=== PATIENT | female | born 1940 | race Caucasian/White ===

== ENCOUNTER 2023-10-19 17:07 | Inpatient (IN) | payer MEDICARE, SELFPAY ==
[2023-10-19] VITALS (9 sets, daily range): BP systolic 102–162; BP diastolic 61–81; BMI 23.2; BMI 21.7
--- NOTE | 2023-10-19 13:30 | ED.GENMED ---
History of Present Illness
General
Chief Complaint: Breathing Problem
Source: patient
Exam Limitations: none
Time Seen by Provider: 10/19/23 13:24
Nursing documentation reviewed up to this point in time: agreed with
Travel History
Have you had any contact with someone who has COVID-19?: No
Do you have any symptoms of coronavirus? Fever > 100 degrees, chills, cough, shortness of breath, sore throat, loss of taste or smell, muscle aches, or headache?: No
History of Present Illness
History of Present Illness:
83 yr . old female with HX of COPD presents to the ER for evaluation. Patient started with cough last week 6 days ago and since then has had increasing shortness of breath. She does use her inhaler however this does not help with her symptoms.
She usually wears oxygen at night but has had to wear it in the morning. She has not had any fevers. She is followed by Dr. Perdomo. She denies any chest pain shortness of breath.
Past History
Past History
ED Past Medical History: Valvular disease (), Other (Aortic stenosis, COPD, hypertension) and Other (cardiomyopathy, )
ED Past Surgical History: Cardiac (pacer)
Social History
Tobacco: Former smoker
Alcohol: None
Personal: Single
Living: alone
Family History
Family History: Negative Diabetes, Early CAD or CAD
Phy Exam
General Physical Exam
General Presentation: no apparent distress
General age: appears stated age
General Skin: warm and dry
General Habitus: elderly
General Mental: alert
General Hydration: appears well hydrated
Cardiovascular Exam
Cardiovascular Exam: regular rate/rhythm, no murmur and normal peripheral pulses
Pulmonary Exam
Pulmonary Exam: other (Decreased throughout, nonproductive cough mild wheezing)
Neurological Exam
Neurological Exam: alert and oriented x3
Musculoskeletal Exam
Musculoskeletal Exam: full ROM
Skin Exam
Skin Exam: normal color and warm/dry
Psychiatric Exam
Psychiatric Exam: normal mood/affect
Scores
Heart Failure Risk
Heart Failure Risk Score: Not Applicable
Course
Orders/Labs/Results
Orders:
Orders
10/19/23 13:28
IV Insert/Care/Rem.- Treatment PRN
Albuterol Nebs [Ventolin Nebules] 2.5 mg INH R NOW STA
Dexamethasone Sod Phosphate [Decadron] 10 mg IV NOW STA
10/19/23 13:29
Electrocardiogram (*1) Stat
Reason for Study: Other
Other Reason for Exam: pneumonia
EKG- Treatment ONCE
CR Chest - 2 Views Urgent
Comment:
Reason For Exam: sob/cough
Peak Flow Rate [RESP] Urgent
Quantity: 1
Pre-Bronchodilator: Yes
Post Bronchodilator: Yes
Special Instructions: Pre and Post Peak Flow before and after Bronchodilator
10/19/23 13:55
Complete Blood Count/With Diff Urgent
Comprehensive Metabolic Panel Urgent
Lactic Acid Q4H
Comment: CANCEL 2nd LACTIC ACID IF 1st LACTIC ACID IS LESS THAN 2
Blood Culture Urgent
MARIBEL Source: Blood/Venous
Specimen Description:
10/19/23 14:15
Blood Culture Urgent
MARIBEL Source: Blood/Venous
Specimen Description:
10/19/23 15:26
COVID-19 Antigen Urgent
Source: Nasal Swab
Influenza A+B Rapid Molecular Urgent
MARIBEL Source: Nasal Swab
Specimen Description:
10/19/23 16:18
Ipratropium/Albuterol Sulfate [Duoneb] 3 ml INH R NOW ONE
10/19/23 17:30
Lactic Acid Q4H
Comment: CANCEL 2nd LACTIC ACID IF 1st LACTIC ACID IS LESS THAN 2
Abnormal Lab Results
10/19/23
13:55
WBC 3.4 L 10^3/uL
(4.8-10.8)
Absolute Lymphs (auto) 0.6 L 10^3/uL
(1.2-3.4)
Lymphocytes % 17.8 L %
(20.5-51.1)
Monocytes % 16.0 H %
(1.7-9.3)
Sodium 130 L mmol/L
(135-145)
Glucose 126 H mg/dl
(70-99)
AST 54 H U/L
(14-36)
ALT 43 H U/L
(0-35)
Total Protein 5.9 L g/dl
(6.3-8.2)
10/19/23 13:55
10/19/23 13:55
Vital Signs
Initial and Last Documented VS:
Initial Vital Signs
Temp Pulse Resp BP Pulse Ox
98.1 F 101 20 124/72 87
10/19/23 13:10 10/19/23 13:10 10/19/23 13:10 10/19/23 13:10 10/19/23 13:10
Last Documented Vital Signs
Temp Pulse Resp BP Pulse Ox
98.1 F 84 18 134/65 92
10/19/23 13:10 10/19/23 15:30 10/19/23 15:30 10/19/23 15:29 10/19/23 15:29
MDM/Problems Addressed
Differential Diagnosis Includes:
Not limited to exacerbation of COPD, pneumonia, hypoxia, COVID, influenza, viral
MDM/Problems Addressed:
Patient is an 83-year-old female presents to the ER. Patient has a history of COPD normally wears oxygen at night however the past 1 week has had increasing shortness of breath wheezing cough. She has increased her oxygen to wearing it during the
day as well. She denies any fevers. She is afebrile negative COVID-negative flu here. No acute findings on chest x-ray. Patient has audible cough mild wheezing decreased breath sounds throughout given nebs steroids here mildly hypoxic. Will
admit for COPD exacerbation.
Chronic conditions affecting care:
copd on chronic O2 at night
*Radiology
Radiology exam reviewed: radiology read reviewed
*Pulse Oximetry
Patient hypoxic: no
*EKG
Heart Rate: 81
Rate: normal
Rhythm: ventricular paced
Ischemia: no ischemia
*Critical Care Note
Total Time (30-74mins, 75-104mins- exclusive of procedures): Not Applicable
ED Attending Note
-
Portions of this chart may have been created with voice recognition software.� Occasional wrong word or��sound alike� substitutions may have occurred due to the inherent limitations of voice recognition software.
Discharge Plan
Departure
Patient Disposition: Admit
Date of Disposition: 10/19/23
Time of Disposition: 16:27
Admit to: Med/Surg
Admit to doctor: hospitalist
Presentation/result/management discussed w/ accepting MD/DO: Hospitalist
Patient with high blood pressure during this ER visit?: Yes
Condition: Fair
Covid-19: Negative COVID-19
Discharge Problem:
copd exacerbation
Prescriptions:
No Action
ascorbic acid (vitamin C) [Vitamin C] 500 MG tablet
500 mg PO DAILY
Prolia 60 MG/ML syringe
60 mg SC [id number]
fluticasone propion-salmeterol 250-50 mcg/dose Blister With Device
1 inh INHALATION R BID
atorvastatin 80 mg Tablet
80 mg PO QPM
cefpodoxime 200 mg Tablet
200 mg PO BID
Patient Comments:
10/19/2023, pt. filled this med. on 10/13/2023 and is instructed to take one tablet BID for 7 days.
lisinopril 20 mg Tablet
20 mg PO DAILY
thiamine HCl (vitamin B1) [Vitamin B-1] 100 mg Tablet
100 mg PO DAILY
ropinirole 0.25 mg Tablet
0.25 mg PO BID
ipratropium bromide 42 mcg (0.06 %) [place],Non-Aerosol
1 spray INTRANASAL BIDPRN PRN (Reason: rhinitis)
fluticasone propionate 50 mcg/actuation [place],Suspension
1 spray INTRANASAL DAILY
cholecalciferol (vitamin D3) 25 mcg (1,000 unit) Tablet
25 mcg PO DAILY
omega 0-tdx-aox-fish oil [Fish Oil] 1,000 mg (120 mg-180 mg) Capsule
1 cap PO DAILY
Incruse Ellipta 62.5 mcg/actuation Blister With Device
1 inh INHALATION R DAILY
calcium citrate
650 mg PO DAILY
Referrals:
UNKNOWN - PT DOES,NOT KNOW [Family Provider] -
Interventions
Interventions:
*Risk Screen - Suicide Last Done: 10/19/23 13:10
*General Assessment Last Done: 10/19/23 13:10
*Neglect/Abuse Screening Last Done: 10/19/23 13:10
ED- Fall Risk Assessment Last Done: 10/19/23 13:44
*ED COVID-19 Vaccine History Last Done: 10/19/23 13:44
ED- Cardiac Assessment Last Done: 10/19/23 14:02
ED- Pulmonary Assessment Last Done: 10/19/23 15:46
--- NOTE | 2023-10-19 13:35 | EDRN ---
Reji CERVANTES in to see pt.
[2023-10-19 14:05] LABS: % Basophils 0.6 % (0-2); % Eosinophils 0.9 % (0-6); % Immature Granulocytes 0.3 % (0-0.5); % Lymphocytes 17.8 % (20.5-51.1); % Neutrophils 64.4 % (42.2-75.2); Absolute Lymphocytes 0.6 10^3/uL (1.2-3.4); Absolute Monocytes 0.6 10^3/uL (0.1-0.6); Absolute Neutrophils 2.2 10^3/uL (1.4-6.5); Hematocrit 40.2 % (37.0-47.0); Hemoglobin 14.1 g/dL (12.0-16.0); Mean Corp Hgb Conc. 35.1 g/dL (33.0-37.0); Mean Corpuscular Hgb 28.5 pg (27.0-31.0); Mean Corpuscular Volume 81.4 fL (81.0-99.0); Mean Platelet Volume 10.1 fL (7.4-10.4); Nucleated Red Blood Cells % 0 %; Platelet Count 146 10^3/uL (130-400); Red Blood Cell Count 4.94 10^6/uL (4.20-5.40); Red Cell Dist. Width 12.9 % (11.5-14.5); White Blood Cell Count 3.4 10^3/uL (4.8-10.8)
[2023-10-19] MEDS: DECADRON 10 MG IV (14:19)
[2023-10-19] MEDS: VENTOLIN NEBULES 2.5 MG INH (14:19)
[2023-10-19 14:29] LABS: ALT (SGPT) 43 U/L (0-35); AST (SGOT) 54 U/L (14-36); Albumin 3.5 g/dl (3.5-5.0); Alkaline Phosphatase 56 U/L (38-126); Blood Urea Nitrogen 15 mg/dl (7-17); Calcium 9.6 mg/dl (8.4-10.2); Carbon Dioxide 27 mmol/L (22-30); Chloride 98 mmol/L (98-107); Estimated Creatinine Clearance 45 ml/min; Glucose 126 mg/dl (70-99); Potassium 3.8 mmol/L (3.5-5.1); Sodium 130 mmol/L (135-145); Total Bilirubin 0.9 mg/dl (0.2-1.3); Total Protein 5.9 g/dl (6.3-8.2); eGFR > 60.00
[2023-10-19 14:33] LABS: Lactic Acid 0.9 mmol/L (0.7-2.0)
[2023-10-19 15:54] LABS: COVID-19 Antigen Negative (Negative)
--- NOTE | 2023-10-19 16:27 | HPS.HSE ---
Addendum entered and electronically signed by Rob Kaur MD 10/19/23 17:33:
I saw and examined the patient.
The BUFFET MANAGER or PA's note was reviewed and I agree with the note.
Comment: 83 yr . old female with� HX of COPD, ,HTN, HLD presents with persistent cough since last wednesday. Had seen friends at lunch, and symptoms began that night. Patient uses 2l at bedtime, and she subsequently noticed her oxygen level in high
80's which prompted her to use oxygen during the day time as well.�Otherwise denies URI symptoms, and mild sputum production is clear. Was given abx last week for possible infection with no relief. Had diarrhea yesterday and vomitted twice, although
no episodes now. RR 25, 92% on 2l. NA 130. Appears euvolemic. Chest x ray with no active disease. 96 on 2l . Mld wheezing b/l. Plan - duonebs, solumedrol. LR bolus. Monitor Na. Incentive [place]. monitor GI symptoms.
Original Note:
Family Physician
-
Family Physician: NOT KNOW UNKNOWN - PT DOES
Chief Complaint
-
sob
cough
History of Present Illness
3 yr . old female with� HX of COPD, ,HTn, HLD presented to us with cough associated with sob since last Wednesday. stated sob worse with exertion. cough was non productive. patient uses 2l at bedtime. she noticed her oxygen level in high 80's which
prompted her to use oxygen during the day time as well. uses nebs with no relief in her symptoms. denied fever, chills, chest pain. denied MABRY,dizzy or syncopal episode. denied abdominal pain. stated diarrhea since yesterday and vomited twice.
denied dysuria or hematuria. patient was evaluated by PCP last week and placed her on cefpodoxime.
chest x ray with no active disease. 96 on 2l . received dexamethasone, nebs in ER. admitting for further management.
Medical History
Past Medical History
Past Medical History: Reports Other
Additional Past Medical History:
COPD
HTN
HLD
Past Surgical History: Reports None
Social History
Tobacco: Former Smoker
Alcohol: None
Drug: None
Family History
Family History: Not pertinent
Allergies / Home Medications
Allergies reflects when Allergies were last updated in [facility].
Home Medications with original date entered in [facility]
Allergy/Medication List:
Allergies
Allergy/AdvReac Type Severity Reaction Status Date / Time
No Known Allergies Allergy Verified 10/19/23 13:16
Home Medications
ascorbic acid (vitamin C) 500 mg tablet (Vitamin C) 500 mg PO DAILY Supplement 06/29/17
denosumab 60 mg/mL subcutaneous syringe (Prolia) 60 mg SC [id number] bone density 05/16/21
atorvastatin 80 mg tablet 80 mg PO QPM 10/19/23
calcium citrate 650 mg PO DAILY 10/19/23
cefpodoxime 200 mg tablet 200 mg PO BID 10/19/23
cholecalciferol (vitamin D3) 25 mcg (1,000 unit) tablet 25 mcg PO DAILY 10/19/23
fluticasone 250 mcg-salmeterol 50 mcg/dose blistr powdr for inhalation 1 inh inhalation R BID 10/19/23
fluticasone propionate 50 mcg/actuation nasal spray,suspension 1 spray intranasal DAILY 10/19/23
ipratropium bromide 42 mcg (0.06 %) nasal spray 1 spray intranasal BIDPRN PRN rhinitis 10/19/23
lisinopril 20 mg tablet 20 mg PO DAILY 10/19/23
omega 5-owv-nat-fish oil 1,000 mg (120 mg-180 mg) capsule (Fish Oil) 1 cap PO DAILY 10/19/23
ropinirole 0.25 mg tablet 0.25 mg PO BID 10/19/23
thiamine HCl (vitamin B1) 100 mg tablet (Vitamin B-1) 100 mg PO DAILY 10/19/23
umeclidinium 62.5 mcg/actuation blister powder for inhalation (Incruse Ellipta) 1 inh inhalation R DAILY 10/19/23
Review of Systems
-
Constitutional: Reports No Symptoms
EENT: Reports No Symptoms
Respiratory: Reports No Symptoms, Cough and Trouble Breathing
Cardiac: Reports No Symptoms
Abdomen/GI: Reports No Symptoms
: Reports No Symptoms
Musculoskeletal: Reports No Symptoms
Skin: Reports No Symptoms
Neurological: Reports No Symptoms
Endocrine: Reports No Symptoms
Hematologic/Lymphatic: Reports No Symptoms
Psych: Reports No Symptoms
Physical Exam
Vital Signs
Vital Signs
Temp Pulse Resp BP Pulse Ox
98.1 F 84 18 134/65 92
10/19/23 13:10 10/19/23 15:30 10/19/23 15:30 10/19/23 15:29 10/19/23 15:29
Physical Exam
General: Well Developed, Well Nourished and No Apparent Distress
HEENT: NormoCephalic, Moist mucous membranes and Atraumatic
Respiratory: Clear and Wheezes
Cardiac: S1/S2 and Regular Rhythm; No Murmur or Rub
GI: Soft, Non Tender, Non Distended and Normal Bowel Sounds; No Organomegaly
Rectal: Deferred by Provider
Musculoskeletal: No Clubbing, No Cyanosis and No Edema
Skin: No Rash
Neuro: AO x 3 and Nonfocal/grossly intact
Psych: Calm
Laboratory Results
-
10/19/23 13:55
10/19/23 13:55
Laboratory Results
Lactic Acid 0.9 mmol/L (0.7-2.0) 10/19/23 13:55
Total Bilirubin 0.9 mg/dl (0.2-1.3) 10/19/23 13:55
AST 54 U/L (14-36) H 10/19/23 13:55
ALT 43 U/L (0-35) H 10/19/23 13:55
Alkaline Phosphatase 56 U/L (38-126) 10/19/23 13:55
Data Reviewed
-
Diagnostic Radiology: Report Reviewed by me
Lab Data: Labs Reviewed by me
Impression/Plan
-
#acute hypoxic respiratory failure likely from COPD exacerbation
-Patient normally wears 2 L at nighttime
-At present requiring 2L all the time
-Albuterol continued
-solu Medrol 40mg iv every 8 hours
-Wean oxygen as tolerated
-Continue supplemental oxygen to keep sat greater than 92
-covid, flu negative
-chest x ray with No convincing acute cardiopulmonary process.
-blood culture sent from ER
# Hyponatremia likely dehydration
-Sodium 130
-LR 80cc/hr x1 bag
# Elevated LFTs likely dehydration
-AST 54, ALT 43
-fluids
#loose stool/vomiting likely from abx
-ctm
-if continues to have lose, consider stool studies.
Hypertension
�- Stable.� Continue outpatient lisinopril.
#restless leg syndrome
-Requip continued
#HLD
-statin
DVT Prophylaxis:�lovenox
Code Status:� Full
--- NOTE | 2023-10-19 17:00 | EDRN ---
Dr. Kaur in to see pt.
[2023-10-19] MEDS: DUONEB 3 ML INH ×2 (17:06→19:53)
[2023-10-19] MEDS: LR 1000 IV (17:59)
[2023-10-19] MEDS: LOVENOX 40 MG SC (18:08)
[2023-10-19] MEDS: LIPITOR 80 MG PO (18:08)
[2023-10-19] MEDS: ADVAIR HFA 115/21 MCG INHALER 2 PUFF INH (19:53)
[2023-10-19] MEDS: MUCINEX 600 MG PO (21:29)
[2023-10-19] MEDS: REQUIP 0.25 MG PO (21:29)
[2023-10-19] MEDS: SOLU-MEDROL PF 40 MG IV (21:30)
[2023-10-19] MEDS: FLUSH (NSS) 1 FLUSH IV (21:33)
--- NOTE | 2023-10-19 23:29 | PTCARENOTE ---
Pt received from [place] [id number] able to make her needs known. Pt on 2 liters of oxygen. Pt ambulates with 1 person assist to bathroom. Pt oriented to room & call sharp in reach.
[2023-10-20] MEDS: SOLU-MEDROL PF 40 MG IV ×3 (05:35→21:01)
[2023-10-20] MEDS: DUONEB 3 ML INH ×4 (07:15→19:36)
[2023-10-20] MEDS: SPIRIVA RESPIMAT 2.5 MCG 2 PUFF INH (07:15)
[2023-10-20] MEDS: ADVAIR HFA 115/21 MCG INHALER 2 PUFF INH ×2 (07:16→19:36)
[2023-10-20 07:25] VITALS: BP 144/72
[2023-10-20 08:24] LABS: Hemoglobin 14.3 g/dL (12.0-16.0); Mean Corpuscular Hgb 28.3 pg (27.0-31.0); Mean Corpuscular Volume 83.2 fL (81.0-99.0); Mean Platelet Volume 10.6 fL (7.4-10.4); Platelet Count 152 10^3/uL (130-400); Red Blood Cell Count 5.05 10^6/uL (4.20-5.40); Red Cell Dist. Width 12.6 % (11.5-14.5); White Blood Cell Count 3.4 10^3/uL (4.8-10.8)
[2023-10-20 08:41] LABS: Blood Urea Nitrogen 14 mg/dl (7-17); Calcium 9.9 mg/dl (8.4-10.2); Carbon Dioxide 28 mmol/L (22-30); Chloride 96 mmol/L (98-107); Estimated Creatinine Clearance 48 ml/min; Glucose 136 mg/dl (70-99); Potassium 4.7 mmol/L (3.5-5.1); Sodium 131 mmol/L (135-145); eGFR > 60.00
[2023-10-20] MEDS: ZESTRIL 20 MG PO (08:59)
[2023-10-20] MEDS: MUCINEX 600 MG PO ×2 (08:59→21:01)
[2023-10-20] MEDS: VITAMIN D3 (cholecalciferol) 25 MCG PO (08:59)
[2023-10-20] MEDS: REQUIP 0.25 MG PO ×2 (08:59→21:01)
--- NOTE | 2023-10-20 10:35 | CM ---
Patient seen, initial assessment completed. Patient reports she lives independently in an apartment, first floor. Patient reports she has a cane in the home but does not use it, has O2 through [employer] which she uses nightly. Patient reports history
of VN over 10 years ago, denies SNF. Patient confirms PCP Dr. Oreilly with [facility], pharmacy used [facility]. Per Hospitalist, patient not ready for discharge at this time. CM will continue to follow for discharge planning needs.
Plan; home no needs vs possible VN needs.
--- NOTE | 2023-10-20 14:26 | W.PN.HOSP.TC ---
Today's Communication/Plan
-
duonebs
iv steroids
IC/Acapella
Assessment / Plan
Assessment / Plan
Physical Exam
General: Well Developed, Well Nourished and No Apparent Distress
HEENT: NormoCephalic, Moist mucous membranes and Atraumatic
Respiratory: Clear and mild wheezing/rhonchi at the bases
Cardiac: S1/S2 and Regular Rhythm; No Murmur or Rub
GI: Soft, Non Tender, Non Distended and Normal Bowel Sounds; No Organomegaly
Rectal: Deferred by Provider
Musculoskeletal: No Clubbing, No Cyanosis and No Edema
Skin: No Rash
Neuro: AO x 3 and Nonfocal/grossly intact
Psych: Calm
#acute hypoxic respiratory failure likely from COPD exacerbation exacerbated by URI
-Patient normally wears 2 L at nighttime
-At present requiring 2L all the time
-Duonebs standing
-solu Medrol 40mg iv every 8 hours
-Wean oxygen as tolerated
-Continue supplemental oxygen to keep sat greater than 92
-Incentive [place], Acapella
-covid, flu negative
# Hyponatremia l
-likely SIADH
-FWR
# Elevated LFTs
-most likely 2/2 to abx use - now off
-AST 54, ALT 43
-ctm
#loose stool/vomiting likely from abx
-ctm
-resolved
Hypertension
�- Stable.� Continue outpatient lisinopril.
#restless leg syndrome
-Requip continued
#HLD
-statin
DVT Prophylaxis:�lovenox
Code Status:� Full
Anticipated Discharge: 24 - 48 hours
Subjective/Interval History
-
Date of Service: October 20, 2023
improvement in respiratory symptoms
Objective Data
-
Labs:
Laboratory Results
03/13/24
07:39
WBC 3.4 L
Hgb 14.3
Hct 42.0
Plt Count 152
Sodium 131 L
Potassium 4.7
Chloride 96 L
Carbon Dioxide 28
BUN 14
Creatinine 0.5 L
Glucose 136 H
Calcium 9.9
Vital Signs:
Vital Signs
Temp Pulse Resp BP Pulse Ox
98.0 F 80 16 144/72 91
10/20/23 07:25 10/20/23 11:06 10/20/23 11:06 10/20/23 07:25 10/20/23 08:30
I&O
10/19/23 10/20/23 10/21/23
06:59 06:59 06:59
Intake Total 1240 / 1240
Balance 1240 / 1240
Review of Systems
-
History Source: Patient
All other systems: Not reviewed unless documented
Data Reviewed
-
Diagnostic Radiology: Image personally visualized and interpreted and Report Reviewed by me
Labs: Labs Reviewed by me
[2023-10-20 15:36] VITALS: BP 104/58
[2023-10-20] MEDS: LIPITOR 80 MG PO (17:15)
[2023-10-20] MEDS: LOVENOX 40 MG SC (17:15)
[2023-10-20 23:19] VITALS: BP 108/59
[2023-10-21] MEDS: SOLU-MEDROL PF 40 MG IV (05:37)
[2023-10-21 07:00] VITALS: BP 140/69
[2023-10-21] MEDS: DUONEB 3 ML INH ×2 (07:40→11:27)
[2023-10-21] MEDS: ADVAIR HFA 115/21 MCG INHALER 2 PUFF INH (07:40)
[2023-10-21] MEDS: SPIRIVA RESPIMAT 2.5 MCG 2 PUFF INH (07:41)
[2023-10-21 07:48] LABS: Hematocrit 43.8 % (37.0-47.0); Hemoglobin 14.8 g/dL (12.0-16.0); Mean Corp Hgb Conc. 33.8 g/dL (33.0-37.0); Mean Corpuscular Hgb 28.4 pg (27.0-31.0); Mean Corpuscular Volume 83.9 fL (81.0-99.0); Mean Platelet Volume 10.9 fL (7.4-10.4); Platelet Count 206 10^3/uL (130-400); Red Blood Cell Count 5.22 10^6/uL (4.20-5.40)
[2023-10-21 08:19] LABS: Blood Urea Nitrogen 13 mg/dl (7-17); Calcium 10.2 mg/dl (8.4-10.2); Carbon Dioxide 30 mmol/L (22-30); Chloride 100 mmol/L (98-107); Estimated Creatinine Clearance 48 ml/min; Glucose 126 mg/dl (70-99); Magnesium 1.8 mg/dl (1.6-2.3); Phosphorus 4.1 mg/dl (2.5-4.5); Potassium 5.1 mmol/L (3.5-5.1); Sodium 134 mmol/L (135-145); eGFR > 60.00
[2023-10-21] MEDS: REQUIP 0.25 MG PO (08:52)
[2023-10-21] MEDS: ZESTRIL 20 MG PO (08:52)
[2023-10-21] MEDS: VITAMIN D3 (cholecalciferol) 25 MCG PO (08:52)
[2023-10-21] MEDS: MUCINEX 600 MG PO (08:52)
--- NOTE | 2023-10-21 12:42 | W.PN.HOSP.TC ---
Addendum entered and electronically signed by Rob Kaur MD 10/21/23 17:37:
[id number]
Original Note:
Today's Communication/Plan
-
transition to pred 40mg and drop by 10mg every 3 days
f/u cbc , bmp outpatient
f/u pulm, pcp outpatient
Assessment / Plan
Assessment / Plan
Physical Exam
General: Well Developed, Well Nourished and No Apparent Distress
HEENT: NormoCephalic, Moist mucous membranes and Atraumatic
Respiratory: Clear and mild wheezing/rhonchi at the bases
Cardiac: S1/S2 and Regular Rhythm; No Murmur or Rub
GI: Soft, Non Tender, Non Distended and Normal Bowel Sounds; No Organomegaly
Rectal: Deferred by Provider
Musculoskeletal: No Clubbing, No Cyanosis and No Edema
Skin: No Rash
Neuro: AO x 3 and Nonfocal/grossly intact
Psych: Calm
#acute hypoxic respiratory failure likely from COPD exacerbation exacerbated by URI
-Patient normally wears 2 L at nighttime
-resolved hypoxia during the day; wheezing resolved
-solu Medrol 40mg iv every 8 hours - transition to pred 40mg and drop by 10mg every 3 days
-Wean oxygen as tolerated
-Continue supplemental oxygen to keep sat greater than 92
-Incentive [place], Acapella
-covid, flu negative
-F/u Pulm outpatient
# Hyponatremia, resolving
-likely SIADH
-FWR
-f/u bmp outaptient
# Elevated LFTs
-most likely 2/2 to abx use - now off
-AST 54, ALT 43
-ctm - f/u outpatient
#Leukocytosis
�Most likely secondary to steroids
Follow CBC outpatient
� Afebrile, low likelihood of acute bacterial infection
#loose stool/vomiting likely from abx
-ctm
-resolved
Hypertension
�- Stable.� Continue outpatient lisinopril.
#restless leg syndrome
-Requip continued
#HLD
-statin
DVT Prophylaxis:�lovenox
Code Status:� Full
More than 30 minutes spent in discharge including
Final examination of the patient
Summarizing hospital stay
Instructions for continuing care to all relevant caregivers
Preparation of discharge records, prescriptions, and referral forms
Total time spent (35 in minutes):
Anticipated Discharge: Today
Subjective/Interval History
-
Date of Service: October 21, 2023
wheezing resolved
Objective Data
-
Labs:
Laboratory Results
10/21/23
07:12
WBC 16.0 H
Hgb 14.8
Hct 43.8
Plt Count 206 D
Sodium 134 L
Potassium 5.1
Chloride 100
Carbon Dioxide 30
BUN 13
Creatinine 0.6
Glucose 126 H
Calcium 10.2
Vital Signs:
Vital Signs
Temp Pulse Resp BP Pulse Ox
98 F 84 16 140/69 90
10/21/23 07:00 10/21/23 11:31 10/21/23 11:31 10/21/23 07:00 10/21/23 11:31
I&O
10/20/23 10/21/23 10/22/23
06:59 06:59 06:59
Intake Total 1240 / 1240 1440 / 1440
Balance 1240 / 1240 1440 / 1440
Review of Systems
-
History Source: Patient
All other systems: Not reviewed unless documented
Data Reviewed
-
Diagnostic Radiology: Image personally visualized and interpreted and Report Reviewed by me
Labs: Labs Reviewed by me
--- NOTE | 2023-10-21 12:50 | W.DS.TRANS ---
DC Summary - Application Security Specialist
-
Discharge Instructions:
Discharge Diagnosis/Procedures COPD exacerbation
Diet Restrict fluids to 64 oz,Low Fat,Low Cholesterol
Activity As tolerated
Blood Work CBC, BMP to evaluate PCP
Instructions:
Stand-Alone Forms:
Changes to Home Medications: Yes
Discharge Medications:
DC Medications w/original date entered in [facility]
ascorbic acid (vitamin C) 500 mg tablet (Vitamin C) 500 mg PO DAILY Supplement 06/29/17
denosumab 60 mg/mL subcutaneous syringe (Prolia) 60 mg SC [id number] bone density 05/16/21
atorvastatin 80 mg tablet 80 mg PO QPM High Cholesterol 10/19/23
calcium citrate 650 mg PO DAILY Supplement 10/19/23
cholecalciferol (vitamin D3) 25 mcg (1,000 unit) tablet 25 mcg PO DAILY Supplement 10/19/23
fluticasone 250 mcg-salmeterol 50 mcg/dose blistr powdr for inhalation 1 inh inhalation R BID Lung/Breathing Issues 10/19/23
fluticasone propionate 50 mcg/actuation nasal spray,suspension 1 spray intranasal DAILY Allergies 10/19/23
ipratropium bromide 42 mcg (0.06 %) nasal spray 1 spray intranasal BIDPRN PRN rhinitis 10/19/23
lisinopril 20 mg tablet 20 mg PO DAILY Blood Pressure 10/19/23
omega 0-nje-tay-fish oil 1,000 mg (120 mg-180 mg) capsule (Fish Oil) 1 cap PO DAILY Supplement 10/19/23
ropinirole 0.25 mg tablet 0.25 mg PO BID Neurological Condition 10/19/23
thiamine HCl (vitamin B1) 100 mg tablet (Vitamin B-1) 100 mg PO DAILY Supplement 10/19/23
umeclidinium 62.5 mcg/actuation blister powder for inhalation (Incruse Ellipta) 1 inh inhalation R DAILY Lung/Breathing Issues 10/19/23
prednisone 10 mg tablet See Rx Instructions .Route .COMPLEX #30 tabs 10/21/23
Home Medication Changes
prednisone 10 mg tablet See Rx Instructions .Route .COMPLEX #30 tabs 10/21/23
Pending Results: No
[2023-10-21 13:39] VITALS: BP 110/65
--- NOTE | 2023-10-21 14:23 | CM ---
Patient seen, reports no new concerns. IMM reviewed, signed, placed in patients chart. CM will continue to follow for discharge planning needs.
Plan; home no needs, son to provide transportation home.
--- NOTE | 2023-10-25 14:35 | PN.CDI ---
CDI
- -
CDI:
Physician Documentation Request
Admit Date: 10/19/23 17:07
Dear Doctor Natasha,
Patient admitted with COPD exacerbation.
10/20 PN, 'acute hypoxic respiratory failure likely from COPD exacerbation exacerbated by URI....Patient normally wears 2 L at nighttime....-resolved hypoxia during the day.'
Patient on O2 2L throughout hospitalization.
Based on the above information and the recognized standard for respiratory failure could you please verify this diagnoses is still accurate and reflective of the patient�s condition to ensure quality of the medical record.
Please clarify in the Progress Notes:
�Acute hypoxic respiratory failure is/was present and is a clinical diagnosis based on (please include this additional support in the medical record)
�After careful study, acute hypoxic respiratory failure has been ruled out, patient has hypoxia only.
�Other
Recognized standard criteria for respiratory failure includes:
(Source: [employer] Hospitalist May/Jun 2013)
ABGs (1 or more)
�PO2 <60 or RA SpO2 <91%
�PcO2 >50 and pH <7.35
�pO2 decrease or pcO2 increase by 10 mmHg from baseline if known Symptoms:
�Tachypnea, SOB, dyspnea
�Pallor or cyanosis
�Anxiety or restlessness
�Use of accessory muscles
�Retractions (grunting in newborns)
�Unable to speak in complete sentences
Supplemental O2 requirement of 40% (5LPM) or more Intubation is not required
Use of terms such as suspected, likely, concern for, or probable (associated with a specific diagnosis that is being evaluated, monitored, or treated as if it exists) are acceptable and can be coded in the inpatient setting, when documented at the
time of discharge.
Thank you,
Renetta PHAM,RN,CCDS
CDI Specialist
Available via [place] text
Please use your independent medical judgment in providing your response.
== END 2023-10-21 14:13 | disposition home or self-care (01) | DRG 190 ==
LOC: 4 EAST ACU 17:07
PROVIDERS: Nurse Practitioner; Registered Nurse; ADMITTING PHYSICIAN Internal Medicine; EMERGENCY PHYSICIAN Student in an Organized Health Care Education/Training Program; FAMILY PHYSICIAN Internal Medicine
DX: J44.1 Chronic obstructive pulmonary disease with (acute) exacerbation (principal); J96.01 Acute respiratory failure with hypoxia; I42.8 Other cardiomyopathies; E22.2 Syndrome of inappropriate secretion of antidiuretic hormone; J06.9 Acute upper respiratory infection, unspecified; I10 Essential (primary) hypertension; I35.0 Nonrheumatic aortic (valve) stenosis; E78.5 Hyperlipidemia, unspecified; E86.0 Dehydration; R79.89 Other specified abnormal findings of blood chemistry; T38.0X5A Adverse effect of glucocorticoids and synthetic analogues, initial encounter; D72.829 Elevated white blood cell count, unspecified; G25.81 Restless legs syndrome; Z11.52 Encounter for screening for COVID-19; Z79.51 Long term (current) use of inhaled steroids; Z87.891 Personal history of nicotine dependence; Z99.81 Dependence on supplemental oxygen
CPT/HCPCS: 71046; 80048; 80053; 83605; 83735; 84100; 85025; 85027; 87040; 87502; 87811; 93005; 94640; 96374; 99285

== ENCOUNTER → 2024-03-01 16:29 | Outpatient (REF) | payer MEDICARE, SELFPAY | LOC: RCS 16:29 | PROVIDERS: ATTENDING PHYSICIAN Internal Medicine Cardiovascular Disease; FAMILY PHYSICIAN Family Medicine | DX: R06.09 Other forms of dyspnea (principal); I25.10 Atherosclerotic heart disease of native coronary artery without angina pectoris; I10 Essential (primary) hypertension | CPT/HCPCS: 93306 ==

== ENCOUNTER → 2024-03-23 14:42 | Outpatient (REF) | payer MEDICARE, SELFPAY | LOC: WDC 14:42 | PROVIDERS: ATTENDING PHYSICIAN Internal Medicine | DX: Z12.31 Encounter for screening mammogram for malignant neoplasm of breast (principal) | CPT/HCPCS: 77063; 77067 ==

== ENCOUNTER → 2024-04-11 16:40 | Outpatient (REF) | payer MEDICARE, SELFPAY | LOC: RAD 16:40 | PROVIDERS: ATTENDING PHYSICIAN Internal Medicine | DX: R05.1 Acute cough (principal) | CPT/HCPCS: 71046 ==

== ENCOUNTER → 2024-05-08 08:34 | Outpatient (REF) | payer MEDICARE, SELFPAY | LOC: RAD 08:34 | PROVIDERS: ATTENDING PHYSICIAN Internal Medicine Critical Care Medicine; FAMILY PHYSICIAN Internal Medicine | DX: J18.9 Pneumonia, unspecified organism (principal) | CPT/HCPCS: 71046 ==

== ENCOUNTER → 2024-07-20 11:10 | Outpatient (REF) | payer MEDICARE, SELFPAY | LOC: RAD 11:10 | PROVIDERS: ATTENDING PHYSICIAN Internal Medicine Endocrinology, Diabetes & Metabolism; FAMILY PHYSICIAN Internal Medicine | DX: E04.2 Nontoxic multinodular goiter (principal) | CPT/HCPCS: 76536 ==

== ENCOUNTER → 2024-10-02 08:22 | Outpatient (REF) | payer MEDICARE, SELFPAY | LOC: RAD 08:22 | PROVIDERS: ATTENDING PHYSICIAN Internal Medicine Rheumatology; FAMILY PHYSICIAN Internal Medicine; REFERRING PHYSICIAN Student in an Organized Health Care Education/Training Program | DX: M81.0 Age-related osteoporosis without current pathological fracture (principal); M85.89 Other specified disorders of bone density and structure, multiple sites; Z13.820 Encounter for screening for osteoporosis | CPT/HCPCS: 77080; 77081 ==

== ENCOUNTER → 2024-11-09 12:34 | Outpatient (REF) | payer MEDICARE, SELFPAY | LOC: HWRAD 12:34 | PROVIDERS: ATTENDING PHYSICIAN Internal Medicine Critical Care Medicine; FAMILY PHYSICIAN Internal Medicine | DX: Z09 Encounter for follow-up examination after completed treatment for conditions other than malignant neoplasm (principal); R91.8 Other nonspecific abnormal finding of lung field | CPT/HCPCS: 71250 ==

== ENCOUNTER 2024-12-08 12:02 | Inpatient (IN) | payer MEDICARE, SELFPAY ==
[2024-12-08] VITALS (10 sets, daily range): BP systolic 117–158; BP diastolic 58–101; BMI 20.1
--- NOTE | 2024-12-08 08:25 | ED.GENMED ---
History of Present Illness
General
Chief Complaint: Cough
Source: patient, records and previous hospital records
Exam Limitations: none
Time Seen by Provider: 12/08/24 08:09
Nursing documentation reviewed up to this point in time: agreed with
History of Present Illness
History of Present Illness:
84-year-old female COPD uses oxygen as needed at night 2 L not on chronic steroids uses inhalers, few days of cough congestion productive sputum problems sleeping at night saw her PCP told it was allergies, here she is coughing, sats in the low 80s,
we will complete short sentences, patient does have some lower extremity edema, admitted a few months ago with similar COPD flare, has had nonobstructive coronary disease pacemaker aortic stenosis she is on a diuretic antihypertensives
Past History
Past History
ED Past Medical History: CHF, COPD, HTN, Valvular disease (), Other (Aortic stenosis, COPD, hypertension) and Other (cardiomyopathy, )
ED Past Surgical History: Cardiac (pacer)
Social History
Tobacco: Former smoker
Alcohol: None
Personal: Single
Living: alone
Employment: Retired
Family History
Family History: Negative Diabetes, Early CAD or CAD
Review of Systems
Review of Systems
All Other Systems: Not applicable
Constitutional: Denies fever
Respiratory: Reports cough and trouble breathing
ABD/GI: Reports no symptoms
: Reports no symptoms
Musculoskeletal: Reports no symptoms
Neurological: Reports no symptoms
Phy Exam
Physical Exam
Physical Exam:
Physical Exam
General: 84 female coughing hypoxic
Neck: No jaundice
Heart: Regular systolic ejection murmur
Lungs: Wheeze and rhonchi
Abdomen: Nontender
Neuro: alert and oriented. no focal neurological deficits
Skin: no rash
Psychiatric: well kept. interactive and cooperative
Extremities: 1+ edema
Course
Orders/Labs/Results
Orders:
Orders
12/08/24 08:01
EKG [Electrocardiogram (*1)] Urgent
Reason for Study: Chest Pain
EKG- Treatment ONCE
12/08/24 08:16
Cardiac Monitoring- Treatment ONCE
IV Insert/Care/Rem.- Treatment PRN
Dexamethasone Sod Phosphate [Decadron] 10 mg IV NOW STA
Ipratropium/Albuterol Sulfate [Duoneb] 3 ml INH R NOW STA
CR Chest - 2 Views Urgent
Comment:
Reason For Exam: cough
12/08/24 08:25
COVID-19 Antigen Urgent
Source: Nasal Swab
Complete Blood Count/With Diff Urgent
Comprehensive Metabolic Panel Urgent
NT-proBNP Urgent
Influenza A+B Rapid Molecular Urgent
MARIB[facility] Source: Nasal Swab
Specimen Description:
12/08/24 10:07
Sputum Culture [Respiratory Culture/Gram Stain] Routine
MARIBEL Source: Sputum
Specimen Description:
12/08/24 10:08
CefTRIAXone [Rocephin] 1,000 mg IV NOW STA
Doxycycline [Vibramycin] 100 mg PO NOW STA
Abnormal Lab Results
12/08/24
08:25
WBC 12.0 H 10^3/uL
(4.8-10.8)
RBC 5.52 H 10^6/uL
(4.20-5.40)
Abs Immat Gran (auto) 0.1 H 10^3/uL
(0-0.05)
Absolute Neuts (auto) 10.5 H 10^3/uL
(1.4-6.5)
Absolute Lymphs (auto) 0.7 L 10^3/uL
(1.2-3.4)
Absolute Monos (auto) 0.8 H 10^3/uL
(0.1-0.6)
Neutrophils % 87.4 H %
(42.2-75.2)
Lymphocytes % 5.4 L %
(20.5-51.1)
Chloride 97 L mmol/L
(98-107)
Glucose 116 H mg/dl
(70-99)
12/08/24 08:25
12/08/24 08:25
Vital Signs
Initial and Last Documented VS:
Initial Vital Signs
Temp Pulse Resp BP Pulse Ox
98.8 F 107 16 158/101 88
12/08/24 07:58 12/08/24 07:58 12/08/24 07:58 12/08/24 07:58 12/08/24 07:58
Last Documented Vital Signs
Temp Pulse Resp BP Pulse Ox
98.8 F 95 19 134/83 92
12/08/24 07:58 12/08/24 08:27 12/08/24 08:27 12/08/24 08:27 12/08/24 08:27
MDM/Problems Addressed
Differential Diagnosis Includes:
Bronchitis COPD exacerbation pneumonia heart failure doubt ACS
MDM/Problems Addressed:
Shortness of breath cough
Chronic conditions affecting care: HTN, Cardiomyopathy, Arrhythmia and COPD
Acute Exacerbation and/or Progression of Chronic Illness: HTN, Cardiomyopathy, Arrhythmia and COPD
*Radiology
Radiology exam reviewed: preliminary read by ED provider
*Pulse Oximetry
Patient hypoxic: yes
*EKG
Interpreted by ED Provider?: Yes
Interpretation: abnormal
Heart Rate: 78
Rate: normal
Rhythm: sinus
Ischemia: non-specific ST changes
*Logistics Analyst Interpretation
Rate: normal
Interpretation: normal
Heart Rate: 78
Rhythm: ventricular paced
*Critical Care Note
Total Time (30-74mins, 75-104mins- exclusive of procedures): Not Applicable
Data Reviewed
Review of Other/Old Records Reveals: Labs, Progress Notes and Discharge Summary
Source: patient and records
Further Testing Considered But Not Given:
CT of the chest
Update Note
Update Note:
Update labs noted EKG noted chest x-ray noted formal report pending
10 AM chest x-ray report noted patient still tachypneic coughing will check sputum culture start on antibiotics low threshold to admit
ED Attending Note
-
Portions of this chart may have been created with voice recognition software.� Occasional wrong word or��sound alike� substitutions may have occurred due to the inherent limitations of voice recognition software.
Discharge Plan
Departure
Patient Disposition: Admit
Date of Disposition: 12/08/24
Time of Disposition: 10:11
Admit to: Med/Surg
Presentation/result/management discussed w/ accepting MD/DO: Hospitalist
Patient with high blood pressure during this ER visit?: No
Condition: Fair
Covid-19: Not Applicable
Discharge Problem:
Acute respiratory failure with hypoxia, COPD (chronic obstructive pulmonary disease), Pneumonia
Prescriptions:
No Action
ascorbic acid (vitamin C) [Vitamin C] 500 MG tablet
500 mg PO DAILY
Prolia 60 MG/ML syringe
60 mg SC [id number]
fluticasone propion-salmeterol 250-50 mcg/dose Blister With Device
1 inh INHALATION R BID
atorvastatin 80 mg Tablet
80 mg PO QPM
lisinopril 20 mg Tablet
20 mg PO DAILY
thiamine HCl (vitamin B1) [Vitamin B-1] 100 mg Tablet
100 mg PO DAILY
ropinirole 0.25 mg Tablet
0.25 mg PO BID
ipratropium bromide 42 mcg (0.06 %) [place],Non-Aerosol
1 spray INTRANASAL BIDPRN PRN (Reason: rhinitis)
fluticasone propionate 50 mcg/actuation [place],Suspension
1 spray INTRANASAL DAILY
cholecalciferol (vitamin D3) 25 mcg (1,000 unit) Tablet
25 mcg PO DAILY
omega 6-mhz-vel-fish oil [Fish Oil] 1,000 mg (120 mg-180 mg) Capsule
1 cap PO DAILY
Incruse Ellipta 62.5 mcg/actuation Blister With Device
1 inh INHALATION R DAILY
calcium citrate
650 mg PO DAILY
prednisone 10 mg Tablet
See Rx Instructions .ROUTE .COMPLEX Qty: 30 0RF
Rx Instructions:
Take By Mouth:
40 mg daily x3 days, 30 mg daily x3 days,
20 mg daily x3 days, 10 mg daily x3 days.
Referrals:
Donald Oreilly MD [Family Provider] -
Interventions
Interventions:
*Risk Screen - Suicide Last Done: 12/08/24 07:58
*Neglect/Abuse Screening Last Done: 12/08/24 07:58
ED- Pulmonary Assessment Last Done: 12/08/24 08:36
Discharge Date and Time
Print Language: TAJIK
[2024-12-08] MEDS: DUONEB 3 ML INH (08:28)
[2024-12-08] MEDS: DECADRON 10 MG IV (08:32)
[2024-12-08 08:46] LABS: % Basophils 0.3 % (0-2); % Eosinophils 0.1 % (0-6); % Immature Granulocytes 0.4 % (0-0.5); % Lymphocytes 5.4 % (20.5-51.1); % Monocytes 6.4 % (1.7-9.3); % Neutrophils 87.4 % (42.2-75.2); Absolute Immature Granulocytes 0.1 10^3/uL (0-0.05); Absolute Lymphocytes 0.7 10^3/uL (1.2-3.4); Absolute Monocytes 0.8 10^3/uL (0.1-0.6); Absolute Neutrophils 10.5 10^3/uL (1.4-6.5); Hematocrit 46.6 % (37.0-47.0); Mean Corp Hgb Conc. 34.3 g/dL (33.0-37.0); Mean Corpuscular Volume 84.4 fL (81.0-99.0); Nucleated Red Blood Cells % 0 %; Platelet Count 234 10^3/uL (130-400); Red Blood Cell Count 5.52 10^6/uL (4.20-5.40)
[2024-12-08 09:07] LABS: ALT (SGPT) 24 U/L (0-35); AST (SGOT) 28 U/L (14-36); Albumin 4.4 g/dl (3.5-5.0); Alkaline Phosphatase 62 U/L (38-126); Blood Urea Nitrogen 11 mg/dl (7-17); Calcium 10.1 mg/dl (8.4-10.2); Carbon Dioxide 28 mmol/L (22-30); Chloride 97 mmol/L (98-107); Estimated Creatinine Clearance 47 ml/min; Glucose 116 mg/dl (70-99); Potassium 3.9 mmol/L (3.5-5.1); Sodium 137 mmol/L (135-145); Total Bilirubin 1.1 mg/dl (0.2-1.3); Total Protein 6.7 g/dl (6.3-8.2); eGFR > 60.00
[2024-12-08 09:16] LABS: NT-proBNP 453 pg/ml
[2024-12-08 10:31] LABS: COVID-19 Antigen Negative (Negative)
[2024-12-08] MEDS: VIBRAMYCIN 100 MG PO ×2 (10:34→19:37)
[2024-12-08] MEDS: VENTOLIN NEBULES 2.5 MG INH (10:34)
[2024-12-08] MEDS: ROCEPHIN 1000 MG IV (10:34)
--- NOTE | 2024-12-08 11:08 | HPS.HSE ---
Family Physician
-
Family Physician: Donald Oreilly
Chief Complaint
-
Shortness of breath, coughing
History of Present Illness
Patient is pleasant 84 years old with a history of COPD, chronic oxygen use 2 L at night, history of hypertension, hyperlipidemia, restless leg syndrome who came to the ER with 1 week history of cough, congestion, sputum production, shortness of
breath, patient was hypoxic as low as 80s, having some chest pains in the epigastric area from coughing but otherwise denies any fever or chills.
Denies any diarrhea or nausea or vomiting or abdominal pain.
X-ray done in the ER shows:
1. Left lower lobe airspace consolidation, new compared to prior chest x-ray, suggestive of left lower lobe pneumonia or subsegmental atelectasis.
2. Hyperinflation and bibasilar vascular crowding, suggestive of COPD.
Patient was given Rocephin in the ER and doxycycline.
Will be admitted under hospitalist service
Medical History
Past Medical History
Past Medical History: Reports CHF, COPD, HTN, Valvular Disease and Other
Additional Past Medical History:
(Aortic stenosis, COPD, hypertension) and Other (cardiomyopathy, )
Past Surgical History: Reports Cardiac
Social History
Tobacco: Former Smoker
Alcohol: None
Drug: None
Personal: Single
Living: Alone
Employment: Retired
Family History
Family History: Not pertinent
Allergies / Home Medications
Allergies reflects when Allergies were last updated in [facility].
Home Medications with original date entered in [facility]
Allergy/Medication List:
Allergies
Allergy/AdvReac Type Severity Reaction Status Date / Time
No Known Allergies Allergy Verified 12/08/24 07:57
Home Medications
ascorbic acid (vitamin C) 500 mg tablet (Vitamin C) 500 mg PO DAILY Supplement 06/29/17
denosumab 60 mg/mL subcutaneous syringe (Prolia) 60 mg SC [id number] bone density 05/16/21
calcium citrate 600 mg PO DAILY Supplement ##0 10/19/23
cholecalciferol (vitamin D3) 25 mcg (1,000 unit) tablet 25 mcg PO DAILY Supplement 10/19/23
fluticasone 250 mcg-salmeterol 50 mcg/dose blistr powdr for inhalation 1 inh inhalation R BID Lung/Breathing Issues 10/19/23
fluticasone propionate 50 mcg/actuation nasal spray,suspension 1 spray intranasal DAILY Allergies 10/19/23
ipratropium bromide 42 mcg (0.06 %) nasal spray 1 spray intranasal BIDPRN PRN rhinitis 10/19/23
lisinopril 20 mg tablet 20 mg PO DAILY Blood Pressure 10/19/23
omega [id number]-fish oil 1,000 mg (120 mg-180 mg) capsule (Fish Oil) 1 cap PO DAILY Supplement 10/19/23
ropinirole 0.25 mg tablet 0.25 mg PO BID Neurological Condition 10/19/23
thiamine HCl (vitamin B1) 100 mg tablet (Vitamin B-1) 100 mg PO DAILY Supplement 10/19/23
umeclidinium 62.5 mcg/actuation blister powder for inhalation (Incruse Ellipta) 1 inh inhalation R DAILY Lung/Breathing Issues 10/19/23
atorvastatin 40 mg tablet (Lipitor) 40 mg PO QPM 12/08/24
doxycycline monohydrate 100 mg capsule 100 mg PO BID 12/08/24
montelukast 10 mg tablet (Singulair) 10 mg PO HS 12/08/24
Review of Systems
-
A 12 point ROS was completed and negative except as noted: Yes
Constitutional: Denies Fever, Weight Gain, Weight Loss, Fatigue or Sleep Disturbance
EENT: Denies Tearing, Sore Throat, Mouth Pain, Mouth Swelling or Runny Nose
Respiratory: Denies Cough, Hemoptysis or Trouble Breathing
Cardiac: Denies Chest Pain, Diaphoresis, Palpitations or Syncope
Abdomen/GI: Denies Abdominal Pain, Nausea, Vomiting, Diarrhea, Constipated, Bloody Stools or Black Stools
: Denies Dysuria, Frequency, Flank Pain, Incontinence, Difficulty Voiding, Urgency, Bleeding or Dark Urine
Musculoskeletal: Denies Joint Pain, Joint Swelling, Muscle Pain, Muscle Stiffness or Edema
Skin: Denies Itching or Rash
Neurological: Denies Dizzy, Headache, Weakness or Numbness
Endocrine: Denies Polyuria, Polydipsia or Temp Intolerance
Hematologic/Lymphatic: Denies Bleeding, Swollen Glands or Bruising
Psych: Reports Calm; Denies Depression, Anxiety or Panic Disorder
Physical Exam
Vital Signs
Vital Signs
Temp Pulse Resp BP Pulse Ox
98.8 F 98 28 132/76 96
12/08/24 07:58 12/08/24 11:00 12/08/24 11:00 12/08/24 11:00 12/08/24 11:00
Physical Exam
General: Well Developed, Well Nourished, No Apparent Distress, Comfortable and Good Appetite; No Pain, Chills or Sweats
HEENT: NormoCephalic, Moist mucous membranes, Atraumatic, Good Dentition, PERRLA, Nose Appears Normal and Ears Appear Normal
Respiratory: Clear
Cardiac: S1/S2 and Regular Rhythm
Breast: Deferred by me
GI: Soft, Non Tender, Non Distended and Normal Bowel Sounds
Genito-urinary: Deferred by me
Musculoskeletal: No Clubbing, No Cyanosis and No Edema
Skin: Warm; No Rash, Jaundice, Ulcers, Lesions or Decubitus Ulcers
Neuro: Awake, Alert, Oriented, AO x 3, No Motor Deficits, Nonfocal/grossly intact and Cranial Nerves Intact
Hematologic/Lymphatic: No Lymphadenopathy
Psych: Calm
Laboratory Results
-
12/08/24 08:25
12/08/24 08:25
Laboratory Results
Total Bilirubin 1.1 mg/dl (0.2-1.3) 12/08/24 08:25
AST 28 U/L (14-36) 12/08/24 08:25
ALT 24 U/L (0-35) 12/08/24 08:25
Alkaline Phosphatase 62 U/L (38-126) 12/08/24 08:25
Data Reviewed
-
Diagnostic Radiology: Report Reviewed by me
CT Scan: Report Reviewed by me
Medical Tests (Nuc Med, Echo, EKG etc): Report Reviewed by me
Lab Data: Labs Reviewed by me
Old Records: Reviewed
Impression/Plan
-
IMPRESSION:
Patient is 84 with history of COPD, hypertension, hyperlipidemia who came to the ER with cough with sputum production, increased shortness of breath, x-ray shows evidence of Left lower lobe airspace consolidation, new compared to prior chest x-ray,
suggestive of left lower lobe pneumonia or subsegmental atelectasis also hyperinflation and bibasilar vascular crowding, suggestive of COPD.
Patient was given Rocephin and steroid, admitted to hospitalist service.
Assessment/plan:
Acute on chronic hypoxic respiratory failure secondary to COPD /pneumonia
-Patient normally wears 2 L at nighttime
Documented hypoxia at the 80s before arrival
Received Decadron 10 mg IV in the ER.
Started on Rocephin/doxycycline.
Will be admitted under hospitalist service.
Started on IV steroid in the form of Solu-Medrol 40 every 8.
Start DuoNebs as needed.
-Wean oxygen as tolerated
-Continue supplemental oxygen to keep sat greater than 92
-Incentive [place], Acapella
Pulmonary consulted.
Severe sepsis with acute organ dysfunction secondary to pneumonia
Patient meets sepsis criteria on admission
Heart rate Max 107
WBCs 12.0 (not currently on steroid at home)
Respiratory rate Max 28
Afebrile
Source of infection is pneumonia
start IV antibiotic in form of Rocephin
Sputum culture
Hypertension
�- Stable.� Continue outpatient lisinopril.
restless leg syndrome
-Requip continued
HLD
-statin
CODE STATUS: Full code
DVT prophylaxis: Lovenox
Diet: Regular diet
Total time spent on today's encounter was 75 minutes which included time spent in counseling the patient/family regarding diagnosis and treatment plan as listed above, goals of care, and symptom management. Case was discussed with nursing staff,
specialists, and care coordinators/case management. All labs and imaging personally reviewed by me. Remainder the time spent in detailed review of previous records, lab data, imaging, and other medical provider documentation.
--- NOTE | 2024-12-08 13:17 | CON.PUL ---
Consultation
Consultation Request
Date/Time Consultation Requested: 12/08/2024 - 1246
Date/Time Consultation Performed: 12/08/2024 - 1311
Requesting Provider: Dr. Holland
Performing Provider: Dr. Stubbs
Reason for Consultation: COPD exacerbation/Acute on chronic hypoxia
Medical History
-
Chief Complaint: Cough
History of Present Illness:
84-year-old female former tobacco smoker with a past medical history of COPD on home oxygen use at night, moderate�severe aortic stenosis, hypertension, GERD, history of pneumonia, pulmonary hypertension, multiple lung nodules and pancreatic cyst
who presents with cough productive of clear mucus. She has had persistent cough with congestion and sputum production with SOB for about a week. She is not having lower chest discomfort from coughing so much. In the ER she was afebrile to 98.8
�F, pulse rate 107, respiratory rate 16, BP 158/101 and saturating 88% on room air. Labs showed mild leukocytosis to 12, Hb 16, platelet count 234, proBNP 453, and COVID-19 antigen negative. Influenza swab was negative for flu A/B. CXR showed a
left lower lobe airspace consolidation suggestive of pneumonia vs subsegmental atelectasis. She was given Decadron 10 mg IV, DuoNebs, nebulized albuterol + ceftriaxone/doxycycline in the ER, and then admitted to telemetry under the hospitalist for
further care. Pulmonary service now consulted for additional management/recommendations.
When I saw the patient, she was resting in bed in no acute distress, on 3 L/min nasal cannula breathing comfortably. She has had a cough with difficulty laying flat, hence she has been laying on her recliner at nighttime to sleep. She is able to
bring up her phlegm, and she has a wet sounding cough. She says she is only short of breath during more strenuous activity, and she says her SOB is at baseline. Also not able to breathe out of her nose as she feels like she does not have enough
air to do so. Currently denies chest pain, MABRY, nausea, fevers or chills.
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
pancreatic cyst, vasomotor rhinitis, restless leg syndrome
PSHx: Nephrectomy, cholecystectomy, appendectomy, hysterectomy
Past Medical History
Past Medical History: Other (Above as per HPI)
Past Surgical History: Other (Above as per HPI)
Social History
Tobacco: Former Smoker ([id number] history, quit in 1990)
Alcohol: None
Drug: None
Personal:
Family History
Family History: Cancer (Mother: Lymphoma) and Other (Father of an ulcer at age 69)
Allergies / Home Medications
Allergies
Allergy/AdvReac Type Severity Reaction Status Date / Time
No Known Allergies Allergy Verified 12/08/24 07:57
Home Medications
�Medication �Instructions �Recorded �Confirmed �Last Taken �Type
ascorbic acid (vitamin C) 500 mg 500 mg PO DAILY Supplement 06/29/17 12/08/24 12/08/24 History
tablet (Vitamin C)
denosumab 60 mg/mL subcutaneous 60 mg SC [id number] bone density 05/16/21 12/08/24 09/13/23 History
syringe (Prolia)
calcium citrate 600 mg PO DAILY Supplement ##0 10/19/23 12/08/24 12/08/24 History
cholecalciferol (vitamin D3) 25 25 mcg PO DAILY Supplement 10/19/23 12/08/24 12/08/24 History
mcg (1,000 unit) tablet
fluticasone 250 mcg-salmeterol 50 1 inh inhalation R BID 10/19/23 12/08/24 12/08/24 History
mcg/dose blistr powdr for Lung/Breathing Issues
inhalation
fluticasone propionate 50 1 spray intranasal DAILY Allergies 10/19/23 12/08/24 12/08/24 History
mcg/actuation nasal
spray,suspension
ipratropium bromide 42 mcg (0.06 1 spray intranasal BIDPRN PRN 10/19/23 12/08/24 10/18/23 History
%) nasal spray rhinitis
lisinopril 20 mg tablet 20 mg PO DAILY Blood Pressure 10/19/23 12/08/24 12/08/24 History
omega 4-gja-bvf-fish oil 1,000 mg 1 cap PO DAILY Supplement 10/19/23 12/08/24 12/08/24 History
(120 mg-180 mg) capsule (Fish Oil)
ropinirole 0.25 mg tablet 0.25 mg PO BID Neurological 10/19/23 12/08/24 12/08/24 History
Condition
thiamine HCl (vitamin B1) 100 mg 100 mg PO DAILY Supplement 10/19/23 12/08/24 12/08/24 History
tablet (Vitamin B-1)
umeclidinium 62.5 mcg/actuation 1 inh inhalation R DAILY 10/19/23 12/08/24 12/08/24 History
blister powder for inhalation Lung/Breathing Issues
(Incruse Ellipta)
atorvastatin 40 mg tablet (Lipitor) 40 mg PO QPM 12/08/24 12/08/24 12/07/24 History
doxycycline monohydrate 100 mg 100 mg PO BID 12/08/24 12/08/24 12/08/24 History
capsule
montelukast 10 mg tablet 10 mg PO HS 12/08/24 12/08/24 12/07/24 History
(Singulair)
Review of Systems
-
History Source: Patient
All other systems: Negative unless noted
Vitals / Labs / Diagnostic Testing
Vital Signs
Temp Pulse Resp BP Pulse Ox
98.2 F 99 18 138/91 94
12/08/24 13:04 12/08/24 13:04 12/08/24 13:04 12/08/24 13:04 12/08/24 13:04
Lab Data
12/08/24 08:25
12/08/24 08:25
Microbiology
12/08/24 11:27 Sputum Gram Stain - Preliminary
12/08/24 08:25 Nasal Swab Influenza Types A & B (DARYL) - Final
Negative for Influenza A & B, NAAT
Negative results must be combined with clinical observations
and patient history.
Nucleic Acid Amplification test (NAAT)performed on the
[employer] platform.
Diagnostic Testing:
Physical Exam
-
HEENT: Normocephalic and Anicteric
Cardiovascular: Peripheral Edema (negative) and Other (Distant cardiac sounds)
Respiratory: Wheeze (negative), Rales (Bibasilar + left middle lung field), Rhonchi (negative) and Non-Labored Respirations
GI: Soft, Non Distended, Non Tender and Normal Bowel Sounds
Neurology: Awake, Alert, Oriented and Tremors (negative)
Skin: Warm and Dry
General: Respiratory Distress (negative), Comfortable, Fever (negative), Chills (negative) and Other (Elderly female, appears thin and deconditioned)
Assessment
-
Assessment: 84-year-old female former tobacco smoker with a past medical history of COPD on home oxygen use at night, moderate�severe aortic stenosis, hypertension, GERD, history of pneumonia, pulmonary hypertension, multiple lung nodules and
pancreatic cyst who presents with cough productive of clear mucus. She has had persistent cough with congestion and sputum production with SOB for about a week. She is not having lower chest discomfort from coughing so much. In the ER she was
afebrile to 98.8 �F, pulse rate 107, respiratory rate 16, BP 158/101 and saturating 88% on room air. Labs showed mild leukocytosis to 12, Hb 16, platelet count 234, proBNP 453, and COVID-19 antigen negative. Influenza swab was negative for flu
A/B. CXR showed a left lower lobe airspace consolidation suggestive of pneumonia vs subsegmental atelectasis. She was given Decadron 10 mg IV, DuoNebs, nebulized albuterol + ceftriaxone/doxycycline in the ER, and then admitted to telemetry under
the hospitalist for further care. Pulmonary service now consulted for additional management/recommendations.
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
nodules, pancreatic cyst, vasomotor rhinitis, restless leg syndrome
Impression:
#Suspected LLL pneumonia
#Acute COPD exacerbation with acute bronchitis
#Acute on chronic respiratory failure with hypoxia
#Leukocytosis (mild)
#Chronic bronchiolitis with multifocal areas of of micronodular opacities with tree-in-bud configuration, significant bronchial wall thickening and bronchial mucoid impaction
#Moderate�severe aortic stenosis
#History of hypertension
#GERD
#Pulmonary hypertension
Plan:
- Patient has been coughing with congestion, SOB and now with mucus production for approximately 1 week
- She does have a history of COPD/emphysema and after review of her recent CT chest on 11/09/2024 she does have focal bronchiectasis in the posterior left upper lobe, right middle lobe, and right lower lobe with scattered bilateral bronchial wall
thickening/mucoid impaction and linear scarring mainly in the bases (R >L)
- She also has scattered pulmonary nodules, most of them are stable, although she does have a new 4 mm nodule in her superior lingula
- Given her CXR findings with possible left lower lobe pneumonia, agree with continuing antibiotics (ceftriaxone/doxy) especially with her history with COPD/emphysema and chronic bronchiolitis
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 This could be potentially worsening and causing atelectasis in the left lower lobe.
She is awaiting to see gastroenterology on 01/31/[address] Santa
- Start mucolytics with scheduled Mucinex
- Acapella; can consider vest therapy if need more aggressive assistance with expectoration
- Aspiration precautions
- Continue systemic steroids with Solu-Medrol 40 mg IV q8hr -wean as she clinically improves
- Patient is on Incruse + generic Advair at home � continue with Spiriva Respimat + Advair 115 mcg while hospitalized; resume home inhalers upon discharge
- prn nebulized bronchodilators - not currently bronchospastic
- Continue supplemental oxygen and titrate to maintain SpO2 88-95%
- Incentive spirometer encouraged q1hr while awake
- Replete electrolytes with K>4, Mg>2
- Trend H/H and transfuse if needed to keep Hb>7g/dL; keep plt>20k, unless there is concern for bleeding then keep plt>50k
- Maintain euglycemia with goal BG >100 and <180
- DVT ppx: LMWH
Pulmonary service will continue to follow along. We will assure that she has pulmonary outpatient follow-up with Dr. Kowalski, as last office visit was 11/16/2024
Data:
CXR 12/08/2024:
1. Left lower lobe airspace consolidation, new compared to prior chest x-ray, suggestive of left lower lobe pneumonia or subsegmental atelectasis.
2. Hyperinflation and bibasilar vascular crowding, suggestive of COPD.
Total time spent today was 56 minutes for this encounter. Time includes reviewing laboratory test/imaging results, reviewing pertinent medical records, obtaining and reviewing medical history, performing an appropriate exam, ordering medications,
tests and procedures. Time also includes documentation of this encounter, coordinating patient care and communicating with other healthcare professionals. Total time does not include separately billed tests performed on this date of service.
--- NOTE | 2024-12-08 15:23 | PTCARENOTE ---
Received pt from ED around 12:45. Pt ambulatory to bed with standby assistance. AAOx3. 3L 94%. Lunch ordered. Oriented to room, call sharp within reach, no complaints at this time.
[2024-12-08 16:05] LABS: Urine Albumin 2+ (Neg - Trace); Urine Bilirubin Negative (Negative); Urine Character Clear (Clear); Urine Color Yellow; Urine Glucose Negative (Negative); Urine Ketone 1+ (Negative); Urine Leukocyte Negative (Negative); Urine Nitrite Negative (Negative); Urine Occult Blood Negative (Negative); Urine Specific Gravity 1.015 (<1.030); Urine Urobilinogen Negative (Neg - 1+)
[2024-12-08] MEDS: SOLU-MEDROL PF 40 MG IV (16:15)
[2024-12-08 16:23] LABS: Urine Red Blood Cell 0-2 /HPF (0-2); Urine Squamous Cell 0-2 /LPF (Few)
[2024-12-08 16:24] LABS: Urine Bacteria Few (Negative)
[2024-12-08 16:25] LABS: Urine Mucus Few
[2024-12-08] MEDS: ADVAIR HFA 115/21 MCG INHALER 2 PUFF INH (18:07)
[2024-12-08] MEDS: LIPITOR 40 MG PO (18:21)
[2024-12-08] MEDS: LOVENOX 40 MG SC (18:21)
[2024-12-08] MEDS: OCEAN, SALINE MIST NASAL (18:22)
[2024-12-08] MEDS: OCEAN, SALINE MIST 4 SPRAYS NASAL ×2 (18:32→21:24)
[2024-12-08] MEDS: REQUIP 0.25 MG PO (19:37)
[2024-12-08] MEDS: ROBITUSSIN DM 10 ML PO (19:37)
[2024-12-08] MEDS: MUCINEX 600 MG PO (19:37)
[2024-12-08] MEDS: SINGULAIR 10 MG PO (21:24)
[2024-12-09] MEDS: SOLU-MEDROL PF 40 MG IV ×3 (00:28→16:34)
[2024-12-09 03:18] VITALS: BP 126/58
[2024-12-09 06:37] LABS: Hematocrit 39.7 % (37.0-47.0); Hemoglobin 13.8 g/dL (12.0-16.0); Mean Corp Hgb Conc. 34.8 g/dL (33.0-37.0); Mean Corpuscular Hgb 29.1 pg (27.0-31.0); Mean Corpuscular Volume 83.6 fL (81.0-99.0); Mean Platelet Volume 10.1 fL (7.4-10.4); Platelet Count 205 10^3/uL (130-400); Red Blood Cell Count 4.75 10^6/uL (4.20-5.40)
[2024-12-09 07:09] LABS: Blood Urea Nitrogen 14 mg/dl (7-17); Calcium 9.7 mg/dl (8.4-10.2); Carbon Dioxide 27 mmol/L (22-30); Chloride 99 mmol/L (98-107); Estimated Creatinine Clearance 47 ml/min; Glucose 125 mg/dl (70-99); Magnesium 1.8 mg/dl (1.6-2.3); Potassium 4.4 mmol/L (3.5-5.1); Sodium 134 mmol/L (135-145); eGFR > 60.00
[2024-12-09 07:15] VITALS: BP 127/79
[2024-12-09] MEDS: ADVAIR HFA 115/21 MCG INHALER 2 PUFF INH (07:47)
[2024-12-09] MEDS: SPIRIVA RESPIMAT 2.5 MCG 2 PUFF INH (07:47)
[2024-12-09] MEDS: MUCINEX 600 MG PO ×2 (09:37→20:48)
[2024-12-09] MEDS: REQUIP 0.25 MG PO ×2 (09:37→20:48)
[2024-12-09] MEDS: VITAMIN B1 100 MG PO (09:38)
[2024-12-09] MEDS: VITAMIN C 500 MG PO (09:38)
[2024-12-09] MEDS: VITAMIN D3 (cholecalciferol) 25 MCG PO (09:38)
[2024-12-09] MEDS: ZESTRIL 20 MG PO (09:38)
[2024-12-09] MEDS: VIBRAMYCIN 100 MG PO ×2 (09:38→20:48)
[2024-12-09] MEDS: OSCAL CAL 500 500 MG PO (09:39)
[2024-12-09] MEDS: OCEAN, SALINE MIST 4 SPRAYS NASAL ×4 (09:39→21:06)
[2024-12-09] MEDS: STERILE WATER FOR INJECTION 10 ML IV (09:40)
[2024-12-09] MEDS: ROCEPHIN 1000 MG IV (09:40)
[2024-12-09 11:10] VITALS: BP 116/63
--- NOTE | 2024-12-09 13:31 | W.PN.HOSP.TC ---
Today's Communication/Plan
-
Wean steroid/oxygen.
Added Robitussin
Assessment / Plan
Assessment / Plan
Impression:
Patient is pleasant 84 years old with a history of COPD, chronic oxygen use 2 L at night, history of hypertension, hyperlipidemia, restless leg syndrome who came to the ER with 1 week history of cough, congestion, sputum production, shortness of
breath, patient was hypoxic as low as 80s, having some chest pains in the epigastric area from coughing but otherwise denies any fever or chills.
Denies any diarrhea or nausea or vomiting or abdominal pain.
X-ray done in the ER shows:
1. Left lower lobe airspace consolidation, new compared to prior chest x-ray, suggestive of left lower lobe pneumonia or subsegmental atelectasis.
2. Hyperinflation and bibasilar vascular crowding, suggestive of COPD.
Started on Rocephin/doxycycline.
Seen by stope miner.
Shortness of breath improved.
Assessment/plan:
Acute on chronic hypoxic respiratory failure secondary to COPD /pneumonia
-Patient normally wears 2 L at nighttime
Documented hypoxia at the 80s before arrival
Received Decadron 10 mg IV in the ER.
Started on Rocephin/doxycycline.
Will be admitted under hospitalist service.
Started on IV steroid in the form of Solu-Medrol 40 every 8.
Start DuoNebs as needed.
-Wean oxygen as tolerated
-Continue supplemental oxygen to keep sat greater than 92
-Incentive Suman, Acapella
Pulmonary consulted.
5/3
Continue to wean oxygen for baseline
Severe sepsis with acute organ dysfunction secondary to pneumonia
Patient meets sepsis criteria on admission
Heart rate Max 107
WBCs 12.0 (not currently on steroid at home)
Respiratory rate Max 28
Afebrile
Source of infection is pneumonia
start IV antibiotic in form of Rocephin
Sputum culture
Added cough syrup
Hypertension
�- Stable.� Continue outpatient lisinopril.
restless leg syndrome
-Requip continued
HLD
-statin
CODE STATUS: Full code
DVT prophylaxis: Lovenox
Diet: Regular diet
Disposition: Wean steroids/oxygen to baseline.
Total time spent on today's encounter was 65 minutes which included time spent in counseling the patient/family regarding diagnosis and treatment plan as listed above, goals of care, and symptom management. Case was discussed with nursing staff,
specialists, and care coordinators/case management. All labs and imaging personally reviewed by me. Remainder the time spent in detailed review of previous records, lab data, imaging, and other medical provider documentation.
Anticipated Discharge: 24 - 48 hours
Subjective/Interval History
-
Date of Service: December 09, 2024
Patient seen and examined at bedside, denies any chest pain , still with coughing and sputum production, shortness of breath/improved, no abdominal pain, no nausea, no vomiting, no diarrhea or constipation.
Objective Data
-
Labs:
Laboratory Results
12/09/24
05:36
WBC 12.0 H
Hgb 13.8
Hct 39.7
Plt Count 205
Sodium 134 L
Potassium 4.4
Chloride 99
Carbon Dioxide 27
BUN 14
Creatinine 0.5 L
Glucose 125 H
Calcium 9.7
Vital Signs:
Vital Signs
Temp Pulse Resp BP Pulse Ox
97.4 F 79 20 116/63 94
12/09/24 11:10 12/09/24 11:10 12/09/24 11:10 12/09/24 11:10 12/09/24 11:10
I&O
12/08/24 12/09/24 12/10/24
06:59 06:59 06:59
Intake Total 480 / 480
Balance 480 / 480
Physical Exam
-
General: Well Developed, Well Nourished, No Apparent Distress and Comfortable
HEENT: Normocephalic, Atraumatic, Moist Mucous Membranes, No Ptosis, PERRLA and Nose Appears Normal
Respiratory: Rales, Rhonchi, Crackles and Non Labored Respirations
Cardiac: Regular Rhythm and S1/S2
Breast: Deferred by me
GI: Soft, Nontender, Nondistended and Normal Bowel Sounds
Genito-urinary: No Costovertebral Tender
Musculoskeletal: No Clubbing, No Cyanosis and No Edema
Skin: Warm
Neuro: Awake, Alert, Oriented, AO x 3 and No Motor Deficits
Psych: Calm
Data Reviewed
-
Diagnostic Radiology: Image personally visualized and interpreted and Report Reviewed by me
CT Scan: Image personally visualized and interpreted and Report Reviewed by me
Ultrasound: Image personally visualized and interpreted and Report Reviewed by me
MRI: Image personally visualized and interpreted and Report Reviewed by me
Medical Tests (Nuc Med, Echo etc): Image personally visualized and interpreted and Report Reviewed by me
Labs: Labs Reviewed by me
Old Records: Reviewed
[2024-12-09 15:30] VITALS: BP 116/65
--- NOTE | 2024-12-09 15:42 | W.PN.PUL3 ---
Today's Communication / Plan
-
Continue antibiotics (Rocephin/doxycycline)
Advair HFA 150 mcg + Spiriva
Solu-Medrol with taper as she clinically improves
Mucolytics
Saline mist Sunflower spray QID
Her incentive spirometer has broken to I discussed case with respiratory therapy and they will provide her new 1
Up OOB as tolerated
Aspiration precautions
Continue supplemental O2, titrating to SpO2 88-95%; ambulatory pulse oximetry prior to discharge
Outpatient pulmonary office follow-up will be arranged
Pulmonary service will continue to follow along
Assessment
-
Assessment: 84-year-old female former tobacco smoker with a past medical history of COPD on home oxygen use at night, moderate�severe aortic stenosis, hypertension, GERD, history of pneumonia, pulmonary hypertension, multiple lung nodules and
pancreatic cyst who presents with cough productive of clear mucus. She has had persistent cough with congestion and sputum production with SOB for about a week. She is not having lower chest discomfort from coughing so much. In the ER she was
afebrile to 98.8 �F, pulse rate 107, respiratory rate 16, BP 158/101 and saturating 88% on room air. Labs showed mild leukocytosis to 12, Hb 16, platelet count 234, proBNP 453, and COVID-19 antigen negative. Influenza swab was negative for flu
A/B. CXR showed a left lower lobe airspace consolidation suggestive of pneumonia vs subsegmental atelectasis. She was given Decadron 10 mg IV, DuoNebs, nebulized albuterol + ceftriaxone/doxycycline in the ER, and then admitted to telemetry under
the hospitalist for further care. Pulmonary service now consulted for additional management/recommendations.
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
nodules, pancreatic cyst, vasomotor rhinitis, restless leg syndrome
Impression:
#Suspected LLL pneumonia
#Acute COPD exacerbation with acute bronchitis
#Acute on chronic respiratory failure with hypoxia
#Leukocytosis (mild)
#Chronic bronchiolitis with multifocal areas of of micronodular opacities with tree-in-bud configuration, significant bronchial wall thickening and bronchial mucoid impaction
#Moderate�severe aortic stenosis
#History of hypertension
#GERD
#Pulmonary hypertension
Plan:
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
- She does have a history of COPD/emphysema and after reviewing her recent CT chest on 11/09/2024 she does have focal bronchiectasis in the posterior left upper lobe, right middle lobe, and right lower lobe with scattered bilateral bronchial wall
thickening/mucoid impaction and linear scarring mainly in the bases (R >L)
- She also has scattered pulmonary nodules, most of them are stable, although she does have a new 4 mm nodule in her superior lingula (this should be followed up in the office)
- Given her CXR findings with possible left lower lobe pneumonia, agree with continuing antibiotics (ceftriaxone/doxy) especially with her history with COPD/emphysema and chronic bronchiolitis
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 This could be potentially worsening and causing atelectasis in the left lower lobe.
She is awaiting to see gastroenterology on 01/31/[address] Santa
- Continue mucolytics with Mucinex
- Acapella; can consider vest therapy if aggressive assistance with expectoration is needed
- Aspiration precautions
- Continue systemic steroids with Solu-Medrol 40 mg IV q8hr - wean as she clinically improves (ideally would wean down to 40 mg IV q12hr within the next 1-2 days)
- Patient is on Incruse + generic Advair at home � continue with Spiriva Respimat + Advair 115 mcg while hospitalized; resume home inhalers upon discharge
- prn nebulized bronchodilators - not currently bronchospastic
- Continue supplemental oxygen and titrate to maintain SpO2 88-95%
- Incentive spirometer encouraged q1hr while awake
- Replete electrolytes with K>4, Mg>2
- Trend H/H and transfuse if needed to keep Hb>7g/dL; keep plt>20k, unless there is concern for bleeding then keep plt>50k
- Maintain euglycemia with goal BG >100 and <180
- DVT ppx: LMWH
Pulmonary service will continue to follow along. We will assure that she has pulmonary outpatient follow-up with Dr. Kowalski, as last office visit was 11/16/2024
Data:
CXR 12/08/2024:
1. Left lower lobe airspace consolidation, new compared to prior chest x-ray, suggestive of left lower lobe pneumonia or subsegmental atelectasis.
2. Hyperinflation and bibasilar vascular crowding, suggestive of COPD.
Total time spent today was 38 minutes for this encounter. Time includes reviewing laboratory test/imaging results, reviewing pertinent medical records, obtaining and reviewing medical history, performing an appropriate exam, ordering medications,
tests and procedures. Time also includes documentation of this encounter, coordinating patient care and communicating with other healthcare professionals. Total time does not include separately billed tests performed on this date of service.
Subjective Data
-
Date of Service:
Date of Service: December 09, 2024
Chief Complaint: Pulmonary Follow Up
Subjective:
Patient seen and evaluated today at bedside (late note entry). On 3 L/min nasal cannula, saturating 95%. She feels better overall. Bringing up phlegm now which she was not able to do yesterday. Denies chest pain, MABRY, nausea, fevers or chills.
Review of Systems
General: Other (Negative unless mentioned above)
Objective Data
Data Reviewed
Vital Signs / I&O / Oxygen:
Vital Signs
Temp Pulse Resp BP Pulse Ox
97.5 F 78 19 127/79 94
12/09/24 07:15 12/09/24 08:02 12/09/24 08:02 12/09/24 07:15 12/09/24 08:02
Intake and Output
12/08/24 12/09/24 12/10/24
06:59 06:59 06:59
Intake Total 480 / 480
Balance 480 / 480
SaO2 94
Nasal Cannula flow liters per 3
minute
Physical Exam
General: Respiratory Distress (negative), Comfortable, Chills (negative) and Sweats (negative)
HEENT: Normocephalic and Anicteric
Cardiovascular: S1-S2, Peripheral Edema (Trace lower extremity edema bilaterally) and Other (Distant cardiac sounds)
Respiratory: Wheeze (negative), Crackles (Bibasilar (L >R)), Rhonchi (negative), Non-Labored Respirations, Stridor (negative) and Other (Coarse breath sounds heard bilaterally)
GI: Soft, Non Distended, Non Tender and Normal Bowel Sounds
Neurology: Awake, Alert and Tremors (negative)
Skin: Warm, Dry, Cyanosis (negative) and Jaundice (negative)
Labs/Micro/Reports
Lab Data
12/09/24 05:36
12/09/24 05:36
Microbiology
12/08/24 11:27 Sputum Gram Stain - Preliminary
12/08/24 08:25 Nasal Swab Influenza Types A & B (DARYL) - Final
Negative for Influenza A & B, NAAT
Negative results must be combined with clinical observations
and patient history.
Nucleic Acid Amplification test (NAAT)performed on the
[employer] platform.
[2024-12-09] MEDS: LIPITOR 40 MG PO (17:07)
[2024-12-09] MEDS: LOVENOX 40 MG SC (17:07)
[2024-12-09] MEDS: SENOKOT-S 1 TABLET PO (17:22)
[2024-12-09] MEDS: ROBITUSSIN DM 10 ML PO (17:22)
[2024-12-09 19:43] VITALS: BP 118/71
[2024-12-09] MEDS: TYLENOL 650 MG PO (20:48)
[2024-12-09] MEDS: SINGULAIR 10 MG PO (21:06)
[2024-12-09 23:35] VITALS: BP 145/65
[2024-12-10] MEDS: SOLU-MEDROL PF 40 MG IV ×3 (00:10→21:43)
[2024-12-10] MEDS: ADVAIR HFA 115/21 MCG INHALER INH (01:09)
[2024-12-10 03:45] VITALS: BP 150/74
[2024-12-10 06:44] LABS: Hematocrit 39.8 % (37.0-47.0); Hemoglobin 13.8 g/dL (12.0-16.0); Mean Corp Hgb Conc. 34.7 g/dL (33.0-37.0); Mean Corpuscular Hgb 29.2 pg (27.0-31.0); Mean Corpuscular Volume 84.1 fL (81.0-99.0); Mean Platelet Volume 10.2 fL (7.4-10.4); Platelet Count 219 10^3/uL (130-400); Red Blood Cell Count 4.73 10^6/uL (4.20-5.40)
[2024-12-10 06:55] LABS: Blood Urea Nitrogen 20 mg/dl (7-17); Calcium 9.6 mg/dl (8.4-10.2); Carbon Dioxide 28 mmol/L (22-30); Chloride 99 mmol/L (98-107); Estimated Creatinine Clearance 47 ml/min; Glucose 123 mg/dl (70-99); Potassium 4.5 mmol/L (3.5-5.1); Sodium 133 mmol/L (135-145); eGFR > 60.00
[2024-12-10 07:13] VITALS: BP 136/64
[2024-12-10] MEDS: SPIRIVA RESPIMAT 2.5 MCG 2 PUFF INH (08:54)
[2024-12-10] MEDS: ADVAIR HFA 115/21 MCG INHALER 2 PUFF INH ×2 (08:54→20:25)
[2024-12-10] MEDS: OSCAL CAL 500 500 MG PO (08:59)
[2024-12-10] MEDS: ZESTRIL 20 MG PO (08:59)
[2024-12-10] MEDS: REQUIP 0.25 MG PO ×2 (08:59→21:43)
[2024-12-10] MEDS: VITAMIN D3 (cholecalciferol) 25 MCG PO (08:59)
[2024-12-10] MEDS: VITAMIN C 500 MG PO (08:59)
[2024-12-10] MEDS: MUCINEX 600 MG PO ×2 (08:59→21:44)
[2024-12-10] MEDS: VITAMIN B1 100 MG PO (08:59)
[2024-12-10] MEDS: OCEAN, SALINE MIST 4 SPRAYS NASAL ×4 (08:59→21:39)
[2024-12-10] MEDS: VIBRAMYCIN 100 MG PO ×2 (08:59→21:44)
[2024-12-10] MEDS: ROCEPHIN 1000 MG IV (09:00)
[2024-12-10] MEDS: STERILE WATER FOR INJECTION 10 ML IV (09:01)
--- NOTE | 2024-12-10 12:16 | W.PN.HOSP.TC ---
Today's Communication/Plan
-
Wean oxygen/steroid
Assessment / Plan
Assessment / Plan
Impression:
Patient is pleasant 84 years old with a history of COPD, chronic oxygen use 2 L at night, history of hypertension, hyperlipidemia, restless leg syndrome who came to the ER with 1 week history of cough, congestion, sputum production, shortness of
breath, patient was hypoxic as low as 80s, having some chest pains in the epigastric area from coughing but otherwise denies any fever or chills.
Denies any diarrhea or nausea or vomiting or abdominal pain.
X-ray done in the ER shows:
1. Left lower lobe airspace consolidation, new compared to prior chest x-ray, suggestive of left lower lobe pneumonia or subsegmental atelectasis.
2. Hyperinflation and bibasilar vascular crowding, suggestive of COPD.
Started on Rocephin/doxycycline.
Seen by guest relations manager.
Shortness of breath improved.
Continue to wean oxygen.
Continue Robitussin/Mucinex
Assessment/plan:
Acute on chronic hypoxic respiratory failure secondary to COPD /pneumonia
-Patient normally wears 2 L at nighttime
Documented hypoxia at the 80s before arrival
Received Decadron 10 mg IV in the ER.
Started on Rocephin/doxycycline.
Will be admitted under hospitalist service.
Started on IV steroid in the form of Solu-Medrol 40 every 8.
Start DuoNebs as needed.
-Wean oxygen as tolerated
-Continue supplemental oxygen to keep sat greater than 92
-Incentive [place], Acapella
Pulmonary consulted.
5/3
Continue to wean oxygen for baseline
5/
Continue to wean oxygen
Wean steroid
Severe sepsis with acute organ dysfunction secondary to pneumonia
Patient meets sepsis criteria on admission
Heart rate Max 107
WBCs 12.0 (not currently on steroid at home)
Respiratory rate Max 28
Afebrile
Source of infection is pneumonia
start IV antibiotic in form of Rocephin
Sputum culture
Added cough syrup
Hypertension
�- Stable.� Continue outpatient lisinopril.
restless leg syndrome
-Requip continued
HLD
-statin
CODE STATUS: Full code
DVT prophylaxis: Lovenox
Diet: Regular diet
Disposition: Wean steroids/oxygen to baseline.
Total time spent on today's encounter was 65 minutes which included time spent in counseling the patient/family regarding diagnosis and treatment plan as listed above, goals of care, and symptom management. Case was discussed with nursing staff,
specialists, and care coordinators/case management. All labs and imaging personally reviewed by me. Remainder the time spent in detailed review of previous records, lab data, imaging, and other medical provider documentation.
Anticipated Discharge: Within 24 hours
Subjective/Interval History
-
Date of Service: December 10, 2024
Patient seen and examined at bedside, denies any chest pain , patient still with excessive coughing and sputum production but overall shortness of breath Improved, no abdominal pain, no nausea, no vomiting, no diarrhea or constipation.
Objective Data
-
Labs:
Laboratory Results
12/10/24
04:40
WBC 17.0 H
Hgb 13.8
Hct 39.8
Plt Count 219
Sodium 133 L
Potassium 4.5
Chloride 99
Carbon Dioxide 28
BUN 20 H
Creatinine 0.6
Glucose 123 H
Calcium 9.6
Vital Signs:
Vital Signs
Temp Pulse Resp BP Pulse Ox
97.8 F 82 18 136/64 93
12/10/24 07:13 12/10/24 08:59 12/10/24 08:59 12/10/24 07:13 12/10/24 11:01
I&O
12/09/24 12/10/24 12/11/24
06:59 06:59 06:59
Intake Total 480 / 480 180 / 180 240 / 240
Output Total 250 / 250
Balance 480 / 480 -70 / -70 240 / 240
Physical Exam
-
General: Well Developed, Well Nourished, No Apparent Distress and Comfortable
HEENT: Normocephalic, Atraumatic, Moist Mucous Membranes, No Ptosis, PERRLA and Nose Appears Normal
Respiratory: Rales, Rhonchi and Non Labored Respirations
Cardiac: Regular Rhythm and S1/S2
Breast: Deferred by me
GI: Soft, Nontender, Nondistended and Normal Bowel Sounds
Genito-urinary: No Costovertebral Tender
Musculoskeletal: No Clubbing, No Cyanosis and No Edema
Skin: Warm
Neuro: Awake, Alert, Oriented, AO x 3 and No Motor Deficits
Psych: Calm
Data Reviewed
-
Diagnostic Radiology: Image personally visualized and interpreted and Report Reviewed by me
CT Scan: Image personally visualized and interpreted and Report Reviewed by me
Ultrasound: Image personally visualized and interpreted and Report Reviewed by me
MRI: Image personally visualized and interpreted and Report Reviewed by me
Medical Tests (Nuc Med, Echo etc): Image personally visualized and interpreted and Report Reviewed by me
Labs: Labs Reviewed by me
Old Records: Reviewed
[2024-12-10 15:02] VITALS: BP 129/65
--- NOTE | 2024-12-10 15:50 | W.PN.PUL3 ---
Today's Communication / Plan
-
Continue antibiotics (Rocephin/doxycycline)
Advair HFA 150 mcg + Spiriva
Solu-Medrol with taper as she clinically improves
Mucolytics
Saline mist [place] spray QID
Incentive spirometer
Up OOB as tolerated
Aspiration precautions
Continue supplemental O2, titrating to SpO2 88-95%; ambulatory pulse oximetry prior to discharge
Outpatient pulmonary office follow-up will be arranged
Pulmonary service will continue to follow along
Assessment
-
Assessment: 84-year-old female former tobacco smoker with a past medical history of COPD on home oxygen use at night, moderate�severe aortic stenosis, hypertension, GERD, history of pneumonia, pulmonary hypertension, multiple lung nodules and
pancreatic cyst who presents with cough productive of clear mucus. She has had persistent cough with congestion and sputum production with SOB for about a week. She is not having lower chest discomfort from coughing so much. In the ER she was
afebrile to 98.8 �F, pulse rate 107, respiratory rate 16, BP 158/101 and saturating 88% on room air. Labs showed mild leukocytosis to 12, Hb 16, platelet count 234, proBNP 453, and COVID-19 antigen negative. Influenza swab was negative for flu
A/B. CXR showed a left lower lobe airspace consolidation suggestive of pneumonia vs subsegmental atelectasis. She was given Decadron 10 mg IV, DuoNebs, nebulized albuterol + ceftriaxone/doxycycline in the ER, and then admitted to telemetry under
the hospitalist for further care. Pulmonary service now consulted for additional management/recommendations.
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
nodules, pancreatic cyst, vasomotor rhinitis, restless leg syndrome
Impression:
#LLL pneumonia
#Acute COPD exacerbation with acute bronchitis
#Acute on chronic respiratory failure with hypoxia
#Leukocytosis
#Chronic bronchiolitis with multifocal areas of of micronodular opacities with tree-in-bud configuration, significant bronchial wall thickening and bronchial mucoid impaction
#Moderate�severe aortic stenosis
#History of hypertension
#GERD
#Pulmonary hypertension
Plan:
- Patient has been coughing with congestion, SOB and developed mucus production for approximately 1 week SHOER
- She does have a history of COPD/emphysema and after reviewing her recent CT chest on 11/09/2024 she does have focal bronchiectasis in the posterior left upper lobe, right middle lobe, and right lower lobe with scattered bilateral bronchial wall
thickening/mucoid impaction and linear scarring mainly in the bases (R >L)
- She also has scattered pulmonary nodules, most of them are stable, although she does have a new 4 mm nodule in her superior lingula (this should be followed up in the office)
- Given her CXR findings with possible left lower lobe pneumonia, agree with continuing antibiotics (ceftriaxone/doxy) especially with her history with COPD/emphysema and chronic bronchiolitis
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 This could be potentially worsening and causing atelectasis in the left lower lobe.
She is awaiting to see gastroenterology on 01/31/[address] Santa
- Continue mucolytics with Mucinex
- Acapella; can consider vest therapy if aggressive assistance with expectoration is needed
- Aspiration precautions
- Continue systemic steroids with Solu-Medrol 40 mg IV q8hr --> wean to q12hr today - continue to wean as she clinically improves
- Patient is on Incruse + generic Advair at home � continue with Spiriva Respimat + Advair 115 mcg while hospitalized; resume home inhalers upon discharge
- prn nebulized bronchodilators - not currently bronchospastic
- Continue supplemental oxygen and titrate to maintain SpO2 88-95%; check home O2 assessment prior to discharge
- Incentive spirometer encouraged q1hr while awake
- Replete electrolytes with K>4, Mg>2
- Trend H/H and transfuse if needed to keep Hb>7g/dL; keep plt>20k, unless there is concern for bleeding then keep plt>50k
- Maintain euglycemia with goal BG >100 and <180
- DVT ppx: LMWH
Pulmonary service will continue to follow along. We will assure that she has pulmonary outpatient follow-up with Dr. Kowalski, as last office visit was 11/16/2024
Data:
CXR 12/08/2024:
1. Left lower lobe airspace consolidation, new compared to prior chest x-ray, suggestive of left lower lobe pneumonia or subsegmental atelectasis.
2. Hyperinflation and bibasilar vascular crowding, suggestive of COPD.
Total time spent today was 36 minutes for this encounter. Time includes reviewing laboratory test/imaging results, reviewing pertinent medical records, obtaining and reviewing medical history, performing an appropriate exam, ordering medications,
tests and procedures. Time also includes documentation of this encounter, coordinating patient care and communicating with other healthcare professionals. Total time does not include separately billed tests performed on this date of service.
Subjective Data
-
Date of Service:
Date of Service: December 10, 2024
Chief Complaint: Pulmonary Follow Up
Subjective:
Patient seen today (late note entry). Shortness of breath improving. Currently on 1.5 L/min. Able to walk around her room without significant shortness of breath. Denies chest pain, MABRY, nausea, fevers or chills.
Review of Systems
General: Other (Negative unless mentioned above)
Objective Data
Data Reviewed
Vital Signs / I&O / Oxygen:
Vital Signs
Temp Pulse Resp BP Pulse Ox
97.8 F 82 18 136/64 95
12/10/24 07:13 12/10/24 08:59 12/10/24 08:59 12/10/24 07:13 12/10/24 08:59
Intake and Output
12/09/24 12/10/24 12/11/24
06:59 06:59 06:59
Intake Total 480 / 480 180 / 180 240 / 240
Output Total 250 / 250
Balance 480 / 480 -70 / -70 240 / 240
SaO2 95
Nasal Cannula flow liters per 2
minute
Physical Exam
General: Respiratory Distress (negative), Comfortable, Chills (negative) and Sweats (negative)
HEENT: Normocephalic and Anicteric
Cardiovascular: S1-S2, Peripheral Edema (negative) and Other (Distant cardiac sounds)
Respiratory: Wheeze (negative), Crackles (Bibasilar (L >R)), Rhonchi (negative), Non-Labored Respirations, Stridor (negative) and Other (Coarse breath sounds heard bilaterally)
GI: Soft, Non Distended, Non Tender and Normal Bowel Sounds
Neurology: Awake, Alert and Tremors (negative)
Skin: Warm, Dry, Cyanosis (negative) and Jaundice (negative)
Labs/Micro/Reports
Lab Data
12/10/24 04:40
12/10/24 04:40
Microbiology
12/08/24 11:27 Sputum Respiratory Culture - Preliminary
Usual Respiratory Elisabeth
12/08/24 11:27 Sputum Gram Stain - Preliminary
12/08/24 08:25 Nasal Swab Influenza Types A & B (DARYL) - Final
Negative for Influenza A & B, NAAT
Negative results must be combined with clinical observations
and patient history.
Nucleic Acid Amplification test (NAAT)performed on the
[employer] platform.
--- NOTE | 2024-12-10 17:23 | CM ---
Met with patient to obtain information for assessment. Patient stated that she lives alone in an apartment which is all on one floor, 1st floor and no steps to enter. She described herself as independent with her ADLs, personal care, dressing and
bathing. She uses a walker to assist with her ambulation. She is able to do straight line edger, cook, clean and do laundry. She has not had VN. She has not been to a SNF. Patient does have o2 at home.
Patient has a prescription plan and uses, [facility] in [place] for all of her medications.
Her PCP is, Sanjiv Oreilly.
Plan: Case management will continue to follow and assist with discharge planning. Patient is is hopeful to be able to return home when cleared.
[2024-12-10] MEDS: LOVENOX 40 MG SC (18:02)
[2024-12-10] MEDS: LIPITOR 40 MG PO (18:02)
[2024-12-10] MEDS: SINGULAIR 10 MG PO (21:44)
[2024-12-10 23:52] VITALS: BP 146/70
[2024-12-11 07:35] VITALS: BP 129/70
[2024-12-11] MEDS: MUCINEX 600 MG PO (07:54)
[2024-12-11] MEDS: VITAMIN C 500 MG PO (07:54)
[2024-12-11] MEDS: VIBRAMYCIN 100 MG PO (07:54)
[2024-12-11] MEDS: ZESTRIL 20 MG PO (07:54)
[2024-12-11] MEDS: VITAMIN D3 (cholecalciferol) 25 MCG PO (07:54)
[2024-12-11] MEDS: VITAMIN B1 100 MG PO (07:54)
[2024-12-11] MEDS: OSCAL CAL 500 500 MG PO (07:54)
[2024-12-11] MEDS: OCEAN, SALINE MIST 4 SPRAYS NASAL ×2 (07:54→12:51)
[2024-12-11] MEDS: REQUIP 0.25 MG PO (07:54)
[2024-12-11] MEDS: ADVAIR HFA 115/21 MCG INHALER 2 PUFF INH (08:15)
[2024-12-11] MEDS: SPIRIVA RESPIMAT 2.5 MCG 2 PUFF INH (08:15)
--- NOTE | 2024-12-11 08:55 | W.PN.UPDATE ---
Update Note
Progress Note Update
I saw and evaluated the patient. I reviewed the resident�s note and agree with findings and plan as documented in the resident�s note except for changes in my documentation
84-year-old with pneumonia
CVS: S1-S2 normal, sm at apex
Chest: CTA B/L
Abdomen: Soft, NT / Bowel sounds present
Extremities: No edema
# Left lower lobe pneumonia
Sepsis secondary to pneumonia
COPD exacerbation with acute bronchitis
Acute on chronic hypoxic respiratory failure
Pulmonary hypertension
Chronic bronchiolitis
On fluticasone Propionate/Salmeterol, Incruse Ellipta, Ipratropium As Outpatient
Continue AB, change to PO (On ceftriaxone and doxycycline)
Continue steroids, mucolytic's
Continue inhalers, nebs, Singulair
Off O2
Pulmonary consulted
# Moderate to severe aortic stenosis-OP Cards eval
# Systemic hypertension-continue lisinopril
# Pulmonary hypertension
# Hyperlipidemia-continue statin
# Pacemaker placement 2017
# GERD-add Pepcid
# Restless leg syndrome-continue Requip
# Ex-smoker
# DVT prophylaxis-continue Lovenox
# Full code
Part of this note was created using voice recognition system. Occasional wrong word or��sound alike� substitutions may have inadvertently occurred due to the inherent limitations of voice recognition software. If noted kindly bring it to my
attention for correction.
More than 30 minutes spent in discharge including
Final examination of the patient
Summarizing hospital stay
Instructions for continuing care to all relevant caregivers
Preparation of discharge records, prescriptions, and referral forms
Total time spent (in minutes): 36 min
[2024-12-11] MEDS: SOLU-MEDROL PF 40 MG IV (09:11)
[2024-12-11] MEDS: PEPCID 20 MG PO (09:55)
[2024-12-11 10:41] LABS: Blood Urea Nitrogen 20 mg/dl (7-17); Calcium 9.8 mg/dl (8.4-10.2); Carbon Dioxide 30 mmol/L (22-30); Chloride 98 mmol/L (98-107); Estimated Creatinine Clearance 35 ml/min; Glucose 166 mg/dl (70-99); Potassium 4.1 mmol/L (3.5-5.1); Sodium 135 mmol/L (135-145); eGFR > 60.00
[2024-12-11 11:07] LABS: Hematocrit 44.5 % (37.0-47.0); Mean Corp Hgb Conc. 33.7 g/dL (33.0-37.0); Mean Corpuscular Hgb 28.6 pg (27.0-31.0); Mean Corpuscular Volume 84.8 fL (81.0-99.0); Platelet Count 274 10^3/uL (130-400); Red Blood Cell Count 5.25 10^6/uL (4.20-5.40); Red Cell Dist. Width 13.1 % (11.5-14.5); White Blood Cell Count 12.6 10^3/uL (4.8-10.8)
[2024-12-11] MEDS: ROCEPHIN IV (12:31)
[2024-12-11] MEDS: STERILE WATER FOR INJECTION IV (12:31)
[2024-12-11] MEDS: CEFTIN 500 MG PO (12:50)
--- NOTE | 2024-12-11 13:45 | W.PN.HOSP.TC ---
Addendum entered and electronically signed by Trish Guerrero MD 12/11/24 14:50:
I saw and evaluated the patient. I reviewed the resident�s note and agree with findings and plan as documented in the resident�s note except for changes in my documentation
Original Note:
Today's Communication/Plan
-
-IV meds switched to oral
-Rocephin dc ed
-Started on Cefuroxime
-IV steroids changed to oral form with a tapering plan
-Discharge can be planned after the case was discussed with pulmonology
Assessment / Plan
Assessment / Plan
Impression:
Patient is pleasant 84 years old with a history of COPD, chronic oxygen use 2 L at night, history of hypertension, hyperlipidemia, restless leg syndrome who came to the ER with 1 week history of cough, congestion, sputum production, shortness of
breath, patient was hypoxic as low as 80s, having some chest pains in the epigastric area from coughing but otherwise denies any fever or chills.
Denies any diarrhea or nausea or vomiting or abdominal pain.
X-ray done in the ER shows:
1. Left lower lobe airspace consolidation, new compared to prior chest x-ray, suggestive of left lower lobe pneumonia or subsegmental atelectasis.
2. Hyperinflation and bibasilar vascular crowding, suggestive of COPD.
Started on
Seen by steel fabricating supervisor.
Shortness of breath improved.
Continue to wean oxygen.
Continue Robitussin/Mucinex
Assessment/plan:
#Acute on chronic hypoxic respiratory failure secondary to COPD /pneumonia
-Patient normally wears 2 L at nighttime
-Chest X ray on 12/08/24: Left lower lobe airspace consolidation, new compared to prior chest x-ray, suggestive of left lower lobe pneumonia or subsegmental atelectasis. Hyperinflation and bibasilar vascular crowding, suggestive of COPD.
-Continue Steroid with tapering plan
-Pulmonology on board
-DuoNebs as needed
-Mucinex as needed
#Severe sepsis possibly secondary to pneumonia
-Leucocytosis ( Trending down)
-Rocephine dc ed
-Started on Cefuroxime
-Continue doxycycline
-Sputum culture:Usual Respiratory Elisabeth
#Hypertension
�- Stable
-� Continue lisinopril 20 mg as home dose
#Restless leg syndrome
-continue Requip
HLD
-statin
CODE STATUS: Full code
DVT prophylaxis: Lovenox
Diet: Regular diet
Anticipated Discharge: Within 24 hours
Subjective/Interval History
-
Date of Service: December 11, 2024
Patient reports feeling better and denies shortness of breath. Saturating well on RA %90-92.
Objective Data
-
Labs:
Laboratory Results
12/11/24
09:41
WBC 12.6 H
Hgb 15.0
Hct 44.5
Plt Count 274 D
Sodium 135
Potassium 4.1
Chloride 98
Carbon Dioxide 30
BUN 20 H
Creatinine 0.8
Glucose 166 H
Calcium 9.8
Vital Signs:
Vital Signs
Temp Pulse Resp BP Pulse Ox
98.3 F 84 20 129/70 91
12/11/24 07:35 12/11/24 08:20 12/11/24 08:20 12/11/24 07:54 12/11/24 11:52
I&O
12/10/24 12/11/24 12/12/24
06:59 06:59 06:59
Intake Total 180 / 180 1200 / 1200
Output Total 250 / 250
Balance -70 / -70 1200 / 1200
Review of Systems
-
History Source: Patient
EENT: Reports No Symptoms Reported
Respiratory: Reports No Symptoms
Cardiac: Reports No Symptoms
Abdomen/GI: Reports No Symptoms
Genitourinary: Reports No Symptoms
Musculoskeletal: Reports No Symptoms
Skin: Reports No Symptoms
Neuro: Reports No Symptoms
Physical Exam
-
General: Well Developed, Well Nourished and Appears Chronically Ill
HEENT: Normocephalic and Atraumatic
Respiratory: Clear to Auscultation
Cardiac: Regular Rhythm and S1/S2
GI: Soft, Nontender and Nondistended
Musculoskeletal: No Clubbing, No Cyanosis and No Edema
Skin: Warm
Neuro: Awake, Alert, Oriented and AO x 3
--- NOTE | 2024-12-11 14:06 | W.PN.PUL3 ---
Today's Communication / Plan
-
Okay to discharge from my perspective
Transition to prednisone taper as noted
Complete 5 to 7 days of antibiotic
Restart inhalers
Outpatient follow-up in our office in about 2 weeks
Sign off
Assessment
-
Assessment: 84-year-old female former tobacco smoker with a past medical history of COPD on home oxygen use at night, moderate�severe aortic stenosis, hypertension, GERD, history of pneumonia, pulmonary hypertension, multiple lung nodules and
pancreatic cyst who presents with cough productive of clear mucus. She has had persistent cough with congestion and sputum production with SOB for about a week. She is not having lower chest discomfort from coughing so much. In the ER she was
afebrile to 98.8 �F, pulse rate 107, respiratory rate 16, BP 158/101 and saturating 88% on room air. Labs showed mild leukocytosis to 12, Hb 16, platelet count 234, proBNP 453, and COVID-19 antigen negative. Influenza swab was negative for flu
A/B. CXR showed a left lower lobe airspace consolidation suggestive of pneumonia vs subsegmental atelectasis. She was given Decadron 10 mg IV, DuoNebs, nebulized albuterol + ceftriaxone/doxycycline in the ER, and then admitted to telemetry under
the hospitalist for further care. Pulmonary service now consulted for additional management/recommendations.
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
nodules, pancreatic cyst, vasomotor rhinitis, restless leg syndrome
Impression:
#LLL pneumonia
#Acute COPD exacerbation with acute bronchitis
#Acute on chronic respiratory failure with hypoxia
#Leukocytosis
#Chronic bronchiolitis with multifocal areas of of micronodular opacities with tree-in-bud configuration, significant bronchial wall thickening and bronchial mucoid impaction
#Moderate�severe aortic stenosis
#History of hypertension
#GERD
#Pulmonary hypertension
Plan:
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
- She does have a history of COPD/emphysema and after reviewing her recent CT chest on 11/09/2024 she does have focal bronchiectasis in the posterior left upper lobe, right middle lobe, and right lower lobe with scattered bilateral bronchial wall
thickening/mucoid impaction and linear scarring mainly in the bases (R >L)
- She also has scattered pulmonary nodules, most of them are stable, although she does have a new 4 mm nodule in her superior lingula (this should be followed up in the office)
- Given her CXR findings with possible left lower lobe pneumonia, agree with continuing antibiotics (ceftriaxone/doxy) especially with her history with COPD/emphysema and chronic bronchiolitis
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 This could be potentially worsening and causing atelectasis in the left lower lobe.
She is awaiting to see gastroenterology on 01/31/[address] Santa
-
Clinically improved. Afebrile. Patient eager to go home. Oxygen has been discontinued
Transition to prednisone 30 mg X 2 days, 20 mg X 2 days on 10 mg X 2 days upon discharge
Restart inhalers upon discharge. Not significantly bronchospastic on exam.
- Patient is on Incruse + generic Advair at home.
Complete 5 to 7 days of antibiotics.
Okay to discharge from my perspective.
- DVT ppx: LMWH
Pulmonary service will continue to follow along. We will assure that she has pulmonary outpatient follow-up with Dr. Kowalski, as last office visit was 11/16/2024
Sign off
Data:
CXR 12/08/2024:
1. Left lower lobe airspace consolidation, new compared to prior chest x-ray, suggestive of left lower lobe pneumonia or subsegmental atelectasis.
2. Hyperinflation and bibasilar vascular crowding, suggestive of COPD.
Subjective Data
-
Date of Service:
Date of Service: December 11, 2024
Chief Complaint: Pulmonary Follow Up
Objective Data
Data Reviewed
Vital Signs / I&O / Oxygen:
Vital Signs
Temp Pulse Resp BP Pulse Ox
98.3 F 84 20 129/70 91
12/11/24 07:35 12/11/24 08:20 12/11/24 08:20 12/11/24 07:54 12/11/24 11:52
Intake and Output
12/10/24 12/11/24 12/12/24
06:59 06:59 06:59
Intake Total 180 / 180 1200 / 1200
Output Total 250 / 250
Balance -70 / -70 1200 / 1200
SaO2 91
Nasal Cannula flow liters per 1
minute
Physical Exam
General: Respiratory Distress (negative), Comfortable, Chills (negative) and Sweats (negative)
HEENT: Normocephalic and Anicteric
Cardiovascular: S1-S2, Peripheral Edema (negative) and Other (Distant cardiac sounds)
Respiratory: Wheeze (negative), Crackles (Bibasilar (L >R)), Rhonchi (negative), Non-Labored Respirations, Stridor (negative) and Other (Coarse breath sounds heard bilaterally)
GI: Soft, Non Distended, Non Tender and Normal Bowel Sounds
Neurology: Awake, Alert and Tremors (negative)
Skin: Warm, Dry, Cyanosis (negative) and Jaundice (negative)
Labs/Micro/Reports
Lab Data
12/11/24 09:41
12/11/24 09:41
Microbiology
12/08/24 11:27 Sputum Respiratory Culture - Final
Usual Respiratory Elisabeth
12/08/24 11:27 Sputum Gram Stain - Final
--- NOTE | 2024-12-11 14:20 | W.DCSUMMARY ---
Addendum entered and electronically signed by Trish Guerrero MD 12/12/24 18:10:
Read, reviewed, and agree. See same day progress note for additional details. Time spent coordinating care, DC planning, review of DC plan of care with resident, transition of care, review of records in EMR, med rec, consults, notes, d/w
consultants, nursing,
Original Note:
Discharge Summary
Discharge Data
Date of Admission: 12/08/24
Date of Discharge: 12/11/24
-
Pending Results: No
Hospital Course
Disposition : Home with VN
Primary care physician : Donald Oreilly MD
Principal Discharge diagnosis : Sepsis secondary to pneumonia, Acute on chronic hypoxic respiratory failure, COPD exacerbation with acute bronchitis
Chronic Discharge diagnosis : Pulmonary hypertension, Chronic bronchiolitis, Moderate to severe aortic stenosis, Systemic hypertension, Pulmonary hypertension, Hyperlipidemia, GERD
Hospital Course : The patient was presented to ER on 12/08/2024 complaining from 1 week history of cough, congestion, sputum production, shortness of breath. Her chest x-ray noted left lower lobe airspace consolidation suggestive of left lower
lobe pneumonia or subsegmental atelectasis. Her lab result was found significant for with increased WBC to 12.0. Her COVID and flu test come back negative. The patient was saturating saturating 88% on room air. She was admitted to hospital and
consulted to pulmonology due to having history of COPD. The patient was started on Rocephin and doxycycline with a diagnosis of community-acquired pneumonia. She was also started on steroids with a tapering plan. The patient's shortness of
breath and cough gradually improved. The patient successfully was weaned off from supplemental oxygen saturating 91 to 93% on room air . She was recommended to complete total 7 days of antibiotic course and, to be tapered with oral steroids at
discharge by manager technical support. She was recommended to see her manager technical support and deputy sheriff chief and primary care physician following her discharge.
#Other medical Problems: These problems include Pulmonary hypertension, Chronic bronchiolitis, Moderate to severe aortic stenosis, Systemic hypertension, Pulmonary hypertension, Hyperlipidemia, GERD. This chronic medical problems were treated as
able to.
Important imaging findings :
12/08/2024 Chest X ray:
FINDINGS:
The cardiomediastinal silhouette is within normal limits. Left subclavian dual-chamber pacemaker is unchanged in position.
Lungs are hyperinflated. Bibasilar scarring and/or vascular crowding is again seen.
There is retrocardiac opacity which projects posteriorly on the lateral view, new compared to prior study.
No significant pleural effusion or pneumothorax on either side.
Mild degenerative change is seen within the thoracic spine.
Bilateral chronic rib fractures.
IMPRESSION:
1. Left lower lobe airspace consolidation, new compared to prior chest x-ray, suggestive of left lower lobe pneumonia or subsegmental atelectasis.
2. Hyperinflation and bibasilar vascular crowding, suggestive of COPD.
Procedure findings :
Discharge Plan
-
Patient Disposition: Home (Routine Discharge)
Discharge Diagnosis/Procedures: Sepsis secondary to pneumonia
COPD exacerbation with acute bronchitis
Acute on chronic hypoxic respiratory failure
Pulmonary hypertension
Chronic bronchiolitis
Moderate to severe aortic stenosis
Systemic hypertension
Pulmonary hypertension
Hyperlipidemia
GERD
Diet: 2 Gram Sodium
Activity: As tolerated
Driving Restrictions: As prior to admission
Bathing Restrictions: None
Other Services: VN
Referrals:
Donald Oreilly MD [Family Provider] - in less than 1 week (Follow with BMP and CBC )
Brenton Kowalski MD [Active] - in two weeks
Thelma Curtis DO [Active] -
Prescriptions:
New
cefuroxime axetil 500 mg Tablet
500 mg PO BID@0800,1800 4 Days Qty: 7 0RF
doxycycline hyclate 100 mg Capsule
100 mg PO BID 4 Days Qty: 7 0RF
prednisone 10 mg Tablet
See Rx Instructions .ROUTE .COMPLEX Qty: 30 0RF
Rx Instructions:
Take By Mouth:
30 mg daily x2 days, 30 mg daily x 2 days
20 mg daily x2 days, 10 mg daily x2 days.
Continued
ascorbic acid (vitamin C) [Vitamin C] 500 MG tablet
500 mg PO DAILY
Prolia 60 MG/ML syringe
60 mg SC [id number]
fluticasone propion-salmeterol 250-50 mcg/dose Blister With Device
1 inh INHALATION R BID
lisinopril 20 mg Tablet
20 mg PO DAILY
thiamine HCl (vitamin B1) [Vitamin B-1] 100 mg Tablet
100 mg PO DAILY
ropinirole 0.25 mg Tablet
0.25 mg PO BID
ipratropium bromide 42 mcg (0.06 %) [place],Non-Aerosol
1 spray INTRANASAL BIDPRN PRN (Reason: rhinitis)
fluticasone propionate 50 mcg/actuation [place],Suspension
1 spray INTRANASAL DAILY
calcium citrate 250 mg calcium Tablet
600 mg PO DAILY Qty: 0
cholecalciferol (vitamin D3) 25 mcg (1,000 unit) Tablet
25 mcg PO DAILY
omega 4-rlv-ngl-fish oil [Fish Oil] 1,000 mg (120 mg-180 mg) Capsule
1 cap PO DAILY
Incruse Ellipta 62.5 mcg/actuation Blister With Device
1 inh INHALATION R DAILY
atorvastatin [Lipitor] 40 mg Tablet
40 mg PO QPM
montelukast [Singulair] 10 mg Tablet
10 mg PO HS
Discontinued
doxycycline monohydrate 100 mg Capsule
100 mg PO BID
Rx Instructions:
for 10 days starting 12/01/23
Discharge Orders:
Discharge Patient (As Directed); Ordered 12/11/24
Ordered By: Samantha Hernandez
Discharge Date and Time
Print Language: SPANISH
[2024-12-11 15:17] VITALS: BP 127/58
--- NOTE | 2024-12-11 16:00 | CM ---
Per physician resident, planning to d/c patient today
Met w/ patient bedside, aware of d/c today and is agreeable. CM consulted for VN/home care, patient agreeable to [facility] for VN. [facility] referral placed in [facility].
Daughter will transport home
IMM verbally reviewed, copy given to patient, copy on chart
Plan: Home w/ [facility]
--- NOTE | 2024-12-11 17:31 | PTCARENOTE ---
Educated pt and son Jaguar on discharge packet. Educated about prednisone taper. No questions at this time. ok for pt to drive herself home. IV removed.
== END 2024-12-11 17:36 | disposition home health service (06) | DRG 871 ==
LOC: 4 EAST ACU 12:02
PROVIDERS: Student in an Organized Health Care Education/Training Program; ADMITTING PHYSICIAN General Practice; ATTENDING PHYSICIAN Hospitalist; CONSULT PHYSICIAN Internal Medicine Critical Care Medicine; EMERGENCY PHYSICIAN Emergency Medicine; FAMILY PHYSICIAN Internal Medicine
DX: A41.89 Other specified sepsis (principal); J18.9 Pneumonia, unspecified organism; J96.21 Acute and chronic respiratory failure with hypoxia; I42.8 Other cardiomyopathies; K86.2 Cyst of pancreas; M84.48XA Pathological fracture, other site, initial encounter for fracture; R65.20 Severe sepsis without septic shock; J43.9 Emphysema, unspecified; E78.5 Hyperlipidemia, unspecified; R91.8 Other nonspecific abnormal finding of lung field; G25.81 Restless legs syndrome; K21.9 Gastro-esophageal reflux disease without esophagitis; I50.9 Heart failure, unspecified; J20.9 Acute bronchitis, unspecified; I27.20 Pulmonary hypertension, unspecified; M81.0 Age-related osteoporosis without current pathological fracture; J30.0 Vasomotor rhinitis; I11.0 Hypertensive heart disease with heart failure; I35.0 Nonrheumatic aortic (valve) stenosis; Z60.2 Problems related to living alone; Z99.81 Dependence on supplemental oxygen; Z87.891 Personal history of nicotine dependence; Z79.51 Long term (current) use of inhaled steroids; Z79.52 Long term (current) use of systemic steroids; Z87.01 Personal history of pneumonia (recurrent); Z90.5 Acquired absence of kidney; Z90.710 Acquired absence of both cervix and uterus; Z90.49 Acquired absence of other specified parts of digestive tract; Z80.7 Family history of other malignant neoplasms of lymphoid, hematopoietic and related tissues; Z11.52 Encounter for screening for COVID-19
CPT/HCPCS: 71046; 80048; 80053; 81003; 81015; 83735; 83880; 85025; 85027; 87070; 87205; 87502; 87811; 93005; 94640; 96374; 96375; 99285

== ENCOUNTER → 2025-02-07 11:35 | Outpatient (REF) | payer MEDICARE, SELFPAY | LOC: RAD 11:35 | PROVIDERS: ATTENDING PHYSICIAN Internal Medicine Gastroenterology; FAMILY PHYSICIAN Internal Medicine; REFERRING PHYSICIAN Nurse Practitioner Adult Health | DX: R19.4 Change in bowel habit (principal); R63.4 Abnormal weight loss; R10.31 Right lower quadrant pain; J44.9 Chronic obstructive pulmonary disease, unspecified | CPT/HCPCS: 71250; 74177; Q9967 ==

== ENCOUNTER → 2025-03-14 16:41 | Outpatient (REF) | payer MEDICARE, SELFPAY | LOC: RCS 16:41 | PROVIDERS: ATTENDING PHYSICIAN Internal Medicine Cardiovascular Disease; FAMILY PHYSICIAN Internal Medicine | DX: Z95.0 Presence of cardiac pacemaker (principal); I35.0 Nonrheumatic aortic (valve) stenosis | CPT/HCPCS: 93306 ==

== ENCOUNTER → 2025-03-28 08:26 | Outpatient (REF) | payer MEDICARE, SELFPAY | LOC: WDC 08:26 | PROVIDERS: ATTENDING PHYSICIAN Internal Medicine | DX: Z12.31 Encounter for screening mammogram for malignant neoplasm of breast (principal) | CPT/HCPCS: 77063; 77067 ==

== ENCOUNTER 2025-04-19 06:29 | Day surgery (SDC) | payer MEDICARE, SELFPAY ==
[2025-04-19] VITALS (9 sets, daily range): BP systolic 101–165; BP diastolic 45–77; BMI 19.9
--- NOTE | 2025-04-19 09:05 | ITS.CL.CATH ---
Unit Operator - Catheterization
Cardiac Catheterization
Procedure Report:
LEFT AND RIGHT HEART CATHETERIZATION
Date of Procedure: April 19, 2025
Referring: Anatoly Giles.
PROCEDURES:
1. Left heart catheterization, coronary angiogram.
2. Right heart catheterization.
3. Moderate sedation.
INDICATION: Workup for TAVR for severe symptomatic aortic stenosis.
ACCESS: 1. Left radial artery, 6Fr. sheath, under US guidance.
2. Right brachial vein, 6 Icelandic sheath
HEMODYNAMICS : (mmHg)
RA (m) : 6
RV (s/d,m) : 40/3, 7
PA (s/d, m) : 38/14, 23
PCWP (m) : 10
PA saturation: 65.4% on room air
AO saturation: 94.1% on room air
RA saturation: 62.2% on room air
Cardiac Output : 3.1 L/min by Arnoldo calculation
Cardiac Index : 2.2 L/min/m-2 by Arnoldo calculation
Systemic vascular resistance: 1882 dsc^(-5)
Pulmonary vascular resistance: 4.84 jean unit
AO (s/d) : 129/60
CORONARY FINDINGS
Dominance: Right
Left Main Trunk (LMT): Large caliber vessel that gives rise to the LAD and LCx branches and is free of angiographic disease.
Left Anterior Descending Artery (LAD): Large caliber vessel that gives off 2 major diagonal branches as it courses along the anterior inter-ventricular groove before wrapping around the cardiac apex. Distal LAD has 40 to 50% stenosis. Otherwise,
there is mild diffuse atherosclerotic plaque.
Left Circumflex Artery (LCx): Large caliber vessel that gives off 3 major obtuse marginal (OM) branches as it courses along the atrio-ventricular (AV) groove. There is mild diffuse atherosclerotic plaque.
Right Coronary Artery (RCA): Large caliber dominant vessel that gives rise to the posterior descending artery (RPDA) and postero-lateral ventricular (RPLV) branches distally. There is mild diffuse atherosclerotic plaque.
SEDATION: 37 minutes of procedural sedation was utilized. IV Midazolam and IV Fentanyl were administered. An independent medical center representative was present to assist with and help manage the patient's level of consciousness and physiologic status.
RADIATION SUMMARY: Fluoro Time (min): 2.6, Dose (mGy): 111.93, DAP (Gy.cm2) : 7.09
Closure Device: There were no immediate intra-procedural complications. The sheath was pulled in the mill laborer and a vascular-band applied to the right wrist for radial artery hemostasis using the patent hemostasis technique.
CONCLUSIONS
1. No obstructive coronary artery disease.
2. Near normal right and left-sided filling pressures with normal cardiac output and elevated SVR.
3. Known severe symptomatic aortic stenosis by most recent echocardiogram.
RECOMMENDATIONS
1. Wean radial band per protocol. Monitor right hand perfusion and for bleeding from the radial site following removal of the vascular-band following trans-radial access.
2. Continue aggressive medical therapy and risk factor modification for secondary CAD prevention.
3. Hydrate with normal saline to mitigate the risk of contrast-induced acute kidney injury.
4. Follow-up with Dr. Thelma Curtis.
5. Continue with workup for transcatheter aortic valve replacement by obtaining a CT angio of chest, abdomen and pelvis and CT surgery consult.
Copy to: Anatoly Giles.
--- NOTE | 2025-04-19 12:40 | CONSULT.STRU ---
Consultation
-
Date/Time Consultation Requested: 04/19/2025 0930
Date/Time Consultation Performed: 04/19/2025 1030
Requesting Provider: Dr. Danica Terry
Performing Provider: BILLY Patten
Reason for Consultation: Aortic stenosis/ TAVR evaluation
Patient History
Physicians
Family Physician: Donald Oreilly
Outpatient It Infrastructure Project Manager: Thelma Curtis
Primary It Infrastructure Project Manager: Thelma Curtis
History of Present Illness
Susanna Alcantara is a pleasant 85yo female who presents for cardiac cath today as part of the evaluation of her severe aortic stenosis. Her recent echocardiogram on 03/14/2025 showed worsening aortic valve stenosis now severe with peak/mean gradients
reported 86/50 mmHg and aortic valve area 0.45 cm2 .EF: 60%.�She has chronic shortness of breath/dyspnea on exertion with recent hospitalization in December for pneumonia and ongoing pulmonary follow-up for nodule atelectasis/chronic
inflammatory/infectious process/COPD. She does use home oxygen at night (2L/NC). Her MERRITT has progressed according to her over the past month but also relates some of it to her anxiety now knowing she has severe aortic stenosis She does have to stop
and rest walking to her mailbox because she needs to catch her breath. She denies chest pain, palpitations, PND, orthopnea and edema. She does complain of some lightheadedness with changing positions but pauses and recovers quickly. Her lisinopril
has recently been reduced. Her cardiac cath today show non-occlusive CAD.
Reviewed the pathophysiology of aortic stenosis with the patient and her son. Explained the treatment options of SAVR and TAVR. Explained the TAVR evaluation process including follow up BMP, CT TAVR scan, CT surgery consult and Heart Team
discussion. Provided with script for BMP next week, script and appointment for CT TAVR, Consult appointment with Dr. Cox and a copy of the TAVR education booklet with contact information. Allowed for and answered questions.
Past Medical History
Past Medical History: Arrhythmias (h/o compplete heart block, PPM), COPD (follows with Dr. Kowalski), MERRITT, GERD, HTN, Hypercholesterolemia, Valvular Disease (Severe , mild TR. MR) and Other (Osteoporosis, Pulmonary HTN, recent pneumonia)
Past Surgical History
Past Surgical History: Appendectomy, Cholecystectomy, Hysterectomy and Other (Oopherectomy)
Dental History
Dr. Kirkland- appt 04/30
Family History
Mother: at Age (68yo, lymphoma)
Father: at Age (69yo)
Social History
Alcohol: None
Drug: None
Tobacco: Former Smoker (Quit 1990)
Personal:
Living: Alone
Employment: Retired
Allergies
Allergy/AdvReac Type Severity Reaction Status Date / Time
No Known Allergies Allergy Verified 04/19/25 06:42
Home Medications
�Medication �Instructions �Recorded �Confirmed �Type
ascorbic acid (vitamin C) 500 mg 500 mg PO DAILY Supplement 06/29/17 04/19/25 History
tablet (Vitamin C)
denosumab 60 mg/mL subcutaneous 60 mg SC [id number] bone density 05/16/21 04/19/25 History
syringe (Prolia)
calcium citrate 600 mg PO DAILY Supplement ##0 10/19/23 04/19/25 History
cholecalciferol (vitamin D3) 25 25 mcg PO DAILY Supplement 10/19/23 04/19/25 History
mcg (1,000 unit) tablet
fluticasone 250 mcg-salmeterol 50 1 inh inhalation R BID 10/19/23 04/19/25 History
mcg/dose blistr powdr for Lung/Breathing Issues
inhalation
fluticasone propionate 50 1 spray intranasal DAILY Allergies 10/19/23 04/19/25 History
mcg/actuation nasal
spray,suspension
ipratropium bromide 42 mcg (0.06 1 spray intranasal BIDPRN PRN 10/19/23 04/19/25 History
%) nasal spray rhinitis
omega 3-prz-wcj-fish oil 1,000 mg 1 cap PO DAILY Supplement 10/19/23 04/19/25 History
(120 mg-180 mg) capsule (Fish Oil)
ropinirole 0.25 mg tablet 0.25 mg PO BID Neurological 10/19/23 04/19/25 History
Condition
thiamine HCl (vitamin B1) 100 mg 100 mg PO DAILY Supplement 10/19/23 04/19/25 History
tablet (Vitamin B-1)
umeclidinium 62.5 mcg/actuation 1 inh inhalation R DAILY 10/19/23 04/19/25 History
blister powder for inhalation Lung/Breathing Issues
(Incruse Ellipta)
atorvastatin 40 mg tablet (Lipitor) 40 mg PO QPM 12/08/24 04/19/25 History
aspirin 81 mg chewable tablet 81 mg PO DAILY #1 tab 04/19/25 Rx
lisinopril 20 mg tablet 20 mg PO DAILY #1 tab 04/19/25 Rx
magnesium 250 mg tablet 250 mg PO DAILY 04/19/25 04/19/25 History
STS%
STS %: 9.29%
Review of Systems
-
History Source: Patient and Family
General: Reports Fatigue; Denies Fever
HEENT: Reports No Symptoms
Respiratory: Reports MERRITT and Other (COPD, recent pneumonia)
Cardiac: Reports No Symptoms; Denies Chest Pain, Palpitations or Edema
Abdomen/GI: Reports No Symptoms; Denies Abdominal Pain, Nausea or Vomiting
: Reports No Symptoms; Denies Dysuria or Frequency
Musculoskeletal: Reports No Symptoms
Skin: Reports No Symptoms
Neurological: Reports No Symptoms
Vascular: Reports No Symptoms
Physical Exam
Vital Signs
Temp 97.1 F 04/19/25 06:49
Temp route: Temporal 04/19/25 06:49
Pulse 70 04/19/25 11:04
Resp Rate 16 04/19/25 06:49
Blood pressure 139/48 04/19/25 11:04
Blood pressure extremity used: Left upper arm 04/19/25 06:49
Position: Sitting 04/19/25 06:49
MAP (cuff-Shabnam Monitor) 78 04/19/25 11:04
SaO2 93 04/19/25 11:04
Oxygen Mode of Delivery Room air 04/19/25 08:45
Can the patient verbally communicate their pain? Yes 04/19/25 11:30
Actual Weight 44.7 kg 04/19/25 07:09
Body Mass Index (BMI) 19.9 04/19/25 07:09
Labs
04/12/2025 [facility]:
BUN/CREAT: 14/0.68
GFR: 85
H/H: 15.3/47.6
Diagnostic Studies
04/19/2025 Cardiac Catheterization:
HEMODYNAMICS : (mmHg)
RA (m) : 6
RV (s/d,m) : 40/3, 7
PA (s/d, m) : 38/14, 23
PCWP (m) : 10
PA saturation: 65.4% on room air
AO saturation: 94.1% on room air
RA saturation: 62.2% on room air
Cardiac Output : 3.1 L/min by Arnoldo calculation
Cardiac Index : 2.2 L/min/m-2 by Arnoldo calculation
Systemic vascular resistance: 1882 dsc^(-5)
Pulmonary vascular resistance: 4.84 jean unit
AO (s/d) : 129/60
CORONARY FINDINGS
Dominance: Right
Left Main Trunk (LMT): Large caliber vessel that gives rise to the LAD and LCx branches and is free of angiographic disease.
Left Anterior Descending Artery (LAD): Large caliber vessel that gives off 2 major diagonal branches as it courses along the anterior inter-ventricular groove before wrapping around the cardiac apex. Distal LAD has 40 to 50% stenosis. Otherwise,
there is mild diffuse atherosclerotic plaque.
Left Circumflex Artery (LCx): Large caliber vessel that gives off 3 major obtuse marginal (OM) branches as it courses along the atrio-ventricular (AV) groove. There is mild diffuse atherosclerotic plaque.
Right Coronary Artery (RCA): Large caliber dominant vessel that gives rise to the posterior descending artery (RPDA) and postero-lateral ventricular (RPLV) branches distally. There is mild diffuse atherosclerotic plaque.
SEDATION: 37 minutes of procedural sedation was utilized. IV Midazolam and IV Fentanyl were administered. An independent medical sales consultant was present to assist with and help manage the patient's level of consciousness and physiologic status.
RADIATION SUMMARY: Fluoro Time (min): 2.6, Dose (mGy): 111.93, DAP (Gy.cm2) : 7.09
Closure Device: There were no immediate intra-procedural complications. The sheath was pulled in the film laboratory technician and a vascular-band applied to the right wrist for radial artery hemostasis using the patent hemostasis technique.
CONCLUSIONS
1. No obstructive coronary artery disease.
2. Near normal right and left-sided filling pressures with normal cardiac output and elevated SVR.
3. Known severe symptomatic aortic stenosis by most recent echocardiogram.
RECOMMENDATIONS
1. Wean radial band per protocol. Monitor right hand perfusion and for bleeding from the radial site following removal of the vascular-band following trans-radial access.
2. Continue aggressive medical therapy and risk factor modification for secondary CAD prevention.
3. Hydrate with normal saline to mitigate the risk of contrast-induced acute kidney injury.
4. Follow-up with Dr. Thelma Curtis.
5. Continue with workup for transcatheter aortic valve replacement by obtaining a CT angio of chest, abdomen and pelvis and CT surgery consult.
03/10/2025 Echocardiogram:
SUMMARY
1. Left ventricular ejection fraction is normal with an ejection fraction of 59.9 % by Aragon's biplane method of discs.
2. Normal left ventricular function.
3. The left ventricular cavity size is normal.
4. Severe Aortic valve stenosis with peak/mean gradients 86/50mmhg and SHAILA 0.45cm2
5. Tricuspid valve opens normally. mild tricuspid regurgitation. Estimated pulmonary artery pressure of 40 mmHg assuming a right atrial pressure of 3 mmHg.
6. Compared to 03/01/24 Peak/mean gradient has increased from prior 67/38 mmHg to now 86/50 mmHg aortic valve area has decreased from prior 0.7 cm² to now 0.45 cm².

Transthoracic Echo procedure
A complete Transthoracic Echocardiogram was performed utilizing Two-Dimensional evaluation with color flow and spectral Doppler analysis.
Pre-Procedure Note:
PHYSICIAN INTERPRETATION
Left Ventricle:
Left ventricular ejection fraction is normal with an ejection fraction of 59.9 % by Aragon's biplane method of discs. There is global normal left ventricular function. Diastolic function indeterminate.
LV Wall Scoring:
There are no regional wall motion abnormalities. All marcelino contract normally.
Right Ventricle:
Right ventricular size and systolic function are within normal limits.
Left Atrium:
Indexed left atrial volume is within normal range (15-34 ml/m2).
Right Atrium:
The right atrium is normal in size and structure.
Interatrial Septum:
The interatrial septum appears normal and intact, with no evidence of interatrial shunting.
Aortic Valve:
The aortic valve is trileaflet. Doppler findings and restricted movement of the aortic valve cusps are consistent with severe aortic stenosis. The peak aortic valve gradient is 85.7 mmHg. The mean aortic valve gradient is 50.0 mmHg. The aortic valve
area, calculated by the continuity equation, is 0.45 cm².
Mitral Valve:
There is no mitral annular calcification. There is thickening of the anterior and posterior leaflets of the mitral valve. Mild mitral valve regurgitation. Mild posterior MAC.
Tricuspid Valve:
Tricuspid valve leaflets appear mildly thickened. Tricuspid valve opens normally. mild tricuspid regurgitation. Estimated pulmonary artery pressure of 40 mmHg assuming a right atrial pressure of 3 mmHg.
Pulmonary Valve:
Grossly normal pulmonic valvel not well visualized.
Aorta:
The aortic root appears normal in dimension, with no evidence of dilatation or obstruction.
Pericardium:
There is no evidence of pericardial effusion.
Additional Findings and Comments:
There is a pacer wire seen in the right heart.
Exam
General: Well Developed, No Apparent Distress and Comfortable
HEENT: Normocephalic, PERRLA and EOMI
Neck: Trachea Midline
Respiratory: Clear; Negative Wheezes, Crackles or Rhonchi
Cardiac: S1/S2, Regular Rhythm and Murmur (Grade III/ COLIN)
GI: Soft, Non Tender, Non Distended and Normal Bowel Sounds
Rectal: Deferred by Provider
Skin: Warm and Dry
Neuro: AO x 3 and No Motor Deficits
Extremities: Pulses (Palpable pedal pulses); Negative Lower Level Edema
Psych: Calm
Assessment / Plan
-
Procedure Type:�Isolated AVR
Perioperative Outcome Estimate %
Operative Mortality 9.29%
Morbidity & Mortality 16.7%
Stroke 1.96%
Renal Failure 1.35%
Reoperation 4.41%
Prolonged Ventilation 9.23%
Deep Sternal Wound Infection 0.021%
Long Hospital Stay (>14 days) 7.87%
Short Hospital Stay (<6 days)* 26.4%
Severe Aortic stenosis:
����������� Continue evaluation for aortic stenosis as outpatient
����������� BMP 04/26/2025
����������� CT TAVR scan 05/03/2025 at [facility]
����������� CT surgery consult with Dr. Cox 05/14/2025
����������� Dental Clearance � Dr. Kirkland
����������� Heart team discussion at [facility]
Data Reviewed
-
EKG: Report Reviewed by me
Dancer Or Choreographer: Report Reviewed by me and Discussed with Patient
Echo: Report Reviewed by me and Discussed with Patient
Labs: Labs Reviewed by me
Old Records: Reviewed (cardiology and pulmonary consult notes)
Total Time Spent with Patient (in minutes): 30
== END 2025-04-19 11:30 | disposition home or self-care (01) ==
LOC: CATH 06:29
PROVIDERS: ATTENDING PHYSICIAN Internal Medicine Interventional Cardiology; FAMILY PHYSICIAN Internal Medicine; OTHER PHYSICIAN Internal Medicine Cardiovascular Disease
DX: I25.10 Atherosclerotic heart disease of native coronary artery without angina pectoris (principal); I08.3 Combined rheumatic disorders of mitral, aortic and tricuspid valves; J44.9 Chronic obstructive pulmonary disease, unspecified; M81.0 Age-related osteoporosis without current pathological fracture; I10 Essential (primary) hypertension; E78.00 Pure hypercholesterolemia, unspecified; Z87.01 Personal history of pneumonia (recurrent); I27.20 Pulmonary hypertension, unspecified; Z80.7 Family history of other malignant neoplasms of lymphoid, hematopoietic and related tissues
CPT/HCPCS: 99152; 99153; 93456; C1894; Q9967

== ENCOUNTER → 2025-04-30 12:30 | Outpatient (REF) | payer MEDICARE, SELFPAY | LOC: MRI 12:30 | PROVIDERS: ATTENDING PHYSICIAN Internal Medicine Gastroenterology; FAMILY PHYSICIAN Internal Medicine; OTHER PHYSICIAN Internal Medicine Critical Care Medicine | DX: N28.1 Cyst of kidney, acquired (principal) | CPT/HCPCS: 71250; 74183; A9575 ==

== ENCOUNTER → 2025-05-03 09:22 | Outpatient (REF) | payer MEDICARE, SELFPAY | LOC: RAD 09:22 | PROVIDERS: ATTENDING PHYSICIAN Nurse Practitioner Adult Health; FAMILY PHYSICIAN Internal Medicine | DX: I35.0 Nonrheumatic aortic (valve) stenosis (principal) | CPT/HCPCS: 74174; 75572; Q9967 ==

== ENCOUNTER 2025-05-15 20:57 | Inpatient (IN) | payer MEDICARE, SELFPAY ==
[2025-05-15 15:20] VITALS: BP 148/73
[2025-05-15 17:55] VITALS: BMI 20.5
[2025-05-15 17:56] VITALS: BP 178/83
[2025-05-15] MEDS: TORADOL 15 MG IV (17:59)
[2025-05-15 18:09] LABS: Hematocrit 45.7 % (37.0-47.0); Hemoglobin 15.5 g/dL (12.0-16.0); Mean Corp Hgb Conc. 33.9 g/dL (33.0-37.0); Mean Corpuscular Volume 83.4 fL (81.0-99.0); Nucleated Red Blood Cells % 0 %; Platelet Count 227 10^3/uL (130-400); Red Cell Dist. Width 13.0 % (11.5-14.5)
[2025-05-15 18:10] LABS: Urine Character Clear (Clear)
[2025-05-15 18:38] LABS: Blood Urea Nitrogen 16 mg/dl (7-17); Calcium 10.6 mg/dl (8.4-10.2); Carbon Dioxide 29 mmol/L (22-30); Chloride 98 mmol/L (98-107); Estimated Creatinine Clearance 39 ml/min; Glucose 104 mg/dl (70-99); Sodium 132 mmol/L (135-145); eGFR > 60.00
--- NOTE | 2025-05-15 19:29 | ED.GENMED ---
Addendum entered and electronically signed by Claude Mathew, 05/15/25 20:16:
Patient seen and evaluated by myself. Patient with lower abdominal pain constant, CT abdomen pelvis revealing small bowel obstruction. No vomiting. Patient was to have TAVR tomorrow she will not be able to get this due to this bowel obstruction.
Original Note:
History of Present Illness
General
Chief Complaint: Abdominal Pain
Source: patient
Exam Limitations: none
Time Seen by Provider: 05/15/25 17:23
History of Present Illness
History of Present Illness:
85-year-old female presents complaining of lower abdominal pain starting over the past 2 days getting worse. Fairly constant. There is no associated nausea or vomiting. There is no change in bowel or bladder habits. She is due for TAVR tomorrow.
No flank pain. She cannot identify any alleviating factors of the pain. No other complaints at this time
Past History
Past History
ED Past Medical History: CHF, COPD, HTN, Valvular disease (), Other (Aortic stenosis, COPD, hypertension) and Other (cardiomyopathy, )
ED Past Surgical History: Cardiac (pacer)
Social History
Tobacco: Former smoker
Alcohol: None
Personal: Single
Living: alone
Employment: Retired
Family History
Family History: Negative Diabetes, Early CAD or CAD
Phy Exam
Physical Exam
Physical Exam:
General: Well-appearing female no acute respiratory distress
HEENT normal cephalic atraumatic
Heart: Regular rate and rhythm
Lungs: Clear no wheeze
Abdomen is soft tender to the lower abdomen bilaterally no guarding nondistended
Extremities: No cyanosis
Skin is warm no rash
Course
Orders/Labs/Results
Orders:
Orders
05/15/25 17:38
Ketorolac [Toradol] 15 mg IV NOW STA
05/15/25 17:39
CT Abd/pelvis W Iv Cont Urgent
Comment:
Reason For Exam: lower abdominal pain
05/15/25 17:57
Basic Metabolic Panel Urgent
Complete Blood Count/With Diff Urgent
Urinalysis Reflex To Culture Urgent
Date Specimen was Collected: 05/15/25
Time Specimen was Collected: 17:40
Urine Microscopic Reflex Cult Urgent
Urine Culture Urgent
MARIBEL Source: U
Specimen Description:
Date Specimen was Collected: 05/15/25
Time Specimen was Collected: 17:40
Abnormal Lab Results
05/15/25
17:57
RBC 5.48 H 10^6/uL
(4.20-5.40)
Absolute Neuts (auto) 7.4 H 10^3/uL
(1.4-6.5)
Absolute Lymphs (auto) 1.0 L 10^3/uL
(1.2-3.4)
Absolute Monos (auto) 0.7 H 10^3/uL
(0.1-0.6)
Neutrophils % 80.6 H %
(42.2-75.2)
Lymphocytes % 11.0 L %
(20.5-51.1)
Sodium 132 L mmol/L
(135-145)
Glucose 104 H mg/dl
(70-99)
Calcium 10.6 H mg/dl
(8.4-10.2)
Ur Occult Blood Reflex 1+ A
(Negative)
Leukocyte Esterase Rfl 1+ A
(Negative)
Urine RBC 3-6 A /HPF
(0-2)
Urine Bacteria (Reflex) Few A
(Negative)
Urine Albumin (Reflex) 1+ A
(Neg - Trace)
05/15/25 17:57
05/15/25 17:57
Vital Signs
Initial and Last Documented VS:
Initial Vital Signs
Temp Pulse Resp BP Pulse Ox
97.6 F 85 18 148/73 93
05/15/25 15:20 05/15/25 15:20 05/15/25 15:20 05/15/25 15:20 05/15/25 15:20
Last Documented Vital Signs
Temp Pulse Resp BP Pulse Ox
97.6 F 76 15 178/83 92
05/15/25 15:20 05/15/25 19:45 05/15/25 19:45 05/15/25 17:56 05/15/25 19:31
MDM/Problems Addressed
Differential Diagnosis Includes:
Lower abdominal pain. Consider constipation vs SBO versus colitis versus appendicitis versus diverticulitis or UTI
Check labs. CT of the abdomen pending.
*Pulse Oximetry
SaO2: 92
Oxygen Mode of Delivery: Room air
Patient hypoxic: no
*Critical Care Note
Total Time (30-74mins, 75-104mins- exclusive of procedures): Not Applicable
Update Note
Update Note:
CT demonstrates evidence of small bowel obstruction and transition point somewhat difficult to visualize. Will admit to hospital. General surgery made aware as well.
ED Attending Note
-
Portions of this chart may have been created with voice recognition software.� Occasional wrong word or��sound alike� substitutions may have occurred due to the inherent limitations of voice recognition software.
Discharge Plan
Departure
Patient Disposition: Admit
Date of Disposition: 05/15/25
Time of Disposition: 20:02
Presentation/result/management discussed w/ accepting MD/DO: Hospitalist
Discharge Problem:
SBO (small bowel obstruction)
Prescriptions:
No Action
ascorbic acid (vitamin C) [Vitamin C] 500 MG tablet
500 mg PO DAILY
Prolia 60 MG/ML syringe
60 mg SC [id number]
fluticasone propion-salmeterol 250-50 mcg/dose Blister With Device
1 inh INHALATION R BID
thiamine HCl (vitamin B1) [Vitamin B-1] 100 mg Tablet
100 mg PO DAILY
ropinirole 0.25 mg Tablet
0.25 mg PO BID
ipratropium bromide 42 mcg (0.06 %) [place],Non-Aerosol
1 spray INTRANASAL BIDPRN PRN (Reason: rhinitis)
fluticasone propionate 50 mcg/actuation [place],Suspension
1 spray INTRANASAL DAILY
calcium citrate 250 mg calcium Tablet
600 mg PO DAILY Qty: 0
cholecalciferol (vitamin D3) 25 mcg (1,000 unit) Tablet
25 mcg PO BID
omega [id number]-cza-fish oil [Fish Oil] 1,000 mg (120 mg-180 mg) Capsule
1 cap PO DAILY
Incruse Ellipta 62.5 mcg/actuation Blister With Device
1 inh INHALATION R DAILY
atorvastatin [Lipitor] 40 mg Tablet
40 mg PO QPM
aspirin 81 mg tablet,chewable
81 mg PO DAILY Qty: 1 0RF
lisinopril 20 mg tablet
40 mg PO DAILY
acetaminophen [Tylenol] 325 mg Tablet
325 mg PO ONCE PRN (Reason: pain)
polyethylene glycol 3350 [Purelax] 17 gram/dose Powder
4 g PO DAILY
Referrals:
Donald Oreilly MD [Family Provider, Internal Medicine]
Interventions
Interventions:
*Risk Screen - Suicide Last Done: 05/15/25 15:20
*General Assessment Last Done: 05/15/25 15:20
*Neglect/Abuse Screening Last Done: 05/15/25 15:20
*ED COVID-19 Vaccine History Last Done: 05/15/25 15:20
*ED Influenza Vaccine History Last Done: 05/15/25 15:20
FC-Cjsnzb-Fvcaknqkpf Assessment Last Done: 05/15/25 17:57
Discharge Date and Time
Print Language: SLOVAK
[2025-05-15 20:14] VITALS: BP 171/76
--- NOTE | 2025-05-15 20:15 | HPS.HSE ---
Addendum entered and electronically signed by Gladis Garvin MD 05/15/25 22:56:
med rec not yet done
patient's list says Lisinopril 20mg daily although it looks like a script for 40mg was recently filled. *20mg ordered for now, team to make adjustments as needed tomorrow.
Original Note:
Family Physician
-
Family Physician: Donald Oreilly
Chief Complaint
-
abdominal pain
History of Present Illness
Ms. Susanna Alcantara is a 85 yo woman with hx severe (was scheduled for TAVR on 05/16), COPD, HTN presents to the ER with lower abdominal pain that started today.
No vomiting, slight nausea. Pain became worse, not responsive to Tylenol and so she decided to come to the ER. No diarrhea. She never had a similar episode of SBO in past.
No chest pain or shortness of breath. She was scheduled for TAVR tomorrow. No increased LE swelling. No fevers/chills. No significant cough or congestion.
Medical History
Past Medical History
Past Medical History: Reports CHF, COPD, HTN, Valvular Disease and Other
Additional Past Medical History:
(Aortic stenosis, COPD, hypertension) and Other (cardiomyopathy, )
Past Surgical History: Reports Cardiac
Social History
Tobacco: Former Smoker
Alcohol: None
Drug: None
Personal: Single
Living: Alone
Employment: Retired
Family History
Family History: Not pertinent
Allergies / Home Medications
Allergies reflects when Allergies were last updated in [facility].
Home Medications with original date entered in [facility]
Allergy/Medication List:
*awaiting home med rec
Review of Systems
-
History Source: Patient
A 12 point ROS was completed and negative except as noted: Yes
Physical Exam
Vital Signs
Vital Signs
Temp Pulse Resp BP Pulse Ox
97.6 F 76 15 178/83 92
05/15/25 15:20 05/15/25 19:45 05/15/25 19:45 05/15/25 17:56 05/15/25 19:31
Physical Exam
General: No Apparent Distress and Conversant
HEENT: PERRLA
Respiratory: Clear; No Wheezes
Cardiac: S1/S2 and Regular Rhythm
GI: Other (tender in lower quadrants, no rebound/guarding)
Musculoskeletal: No Edema
Skin: Warm and Dry; No Rash
Neuro: AO x 3
Psych: Calm
Laboratory Results
-
05/15/25 17:57
05/15/25 17:57
Laboratory Results
Total Bilirubin Cancelled 05/15/25 17:57
AST Cancelled 05/15/25 17:57
ALT Cancelled 05/15/25 17:57
Alkaline Phosphatase Cancelled 05/15/25 17:57
Data Reviewed
-
Diagnostic Radiology: Report Reviewed by me
Lab Data: Labs Reviewed by me
Impression/Plan
-
Ms. Susanna Alcantara is a 85 yo woman with hx severe undergoing work up for TAVR, COPD, HTN, surgical hx total hysterectomy, cholecystectomy and appendectomy, presents to the ER with lower abdominal pain over past two days.
Triage VS: T 97.6, P 85, RR 18, BP 148/73, SpO2 93%
LABS: WBC 9.3, Hg 15.5, PLT 227, Na 132, CO2 29, Cr 0.7, Glucose 104, Ca 10.6
CT A/P 05/15/25 with IV contrast
IMPRESSION: As described above, CT findings compatible with small bowel obstruction.
No evidence for free intraperitoneal air. No significant free pelvic fluid or mesenteric fluid is identified.
Status post cholecystectomy. Stable appearance with no significant dilation of the common bile duct.
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 This mass has been previously evaluated with MRI of the abdomen, most recently from April 30, 2025. In an 85-year-old patient, no further imaging follow-up of
this pancreatic cystic mass is recommended.
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
MAR: IV Toradol
Small Bowel Obstruction
-CT results above, no evidence of free air, no significant free fluid
-admit to telemetry
-LR @ 60 (cautious with severe )
-NPO except ice chips
-patient currently without signifiant nausea/vomiting, can avoid NGT
-general surgery consulted
-IV Toradol PRN moderate pain; low dose IV dilaudid PRN severe pain
-IV Zofran PRN
Severe
-plan was for TAVR tomorrow. Dr. Cox updated that patient is here
-cautious with fluids as above
-monitor on telemetry
COPD
-continue home inhalers
-duonebs PRN
Essential HTN
-patient is on Lisinopril 20mg PO QD, continue here
DVT PPx Lovenox subQ
FULL CODE
[2025-05-15 21:00] VITALS: BP 158/68
[2025-05-15 21:04] LABS: ALT (SGPT) 25 U/L (0-35); AST (SGOT) 32 U/L (14-36); Albumin 3.7 g/dl (3.5-5.0); Alkaline Phosphatase 42 U/L (38-126); Magnesium 1.8 mg/dl (1.6-2.3); Potassium 4.3 mmol/L (3.5-5.1); Total Protein 5.9 g/dl (6.3-8.2)
[2025-05-15] MEDS: LR 1000 IV (21:05)
[2025-05-15 22:04] VITALS: BP 179/90
[2025-05-15] MEDS: REQUIP PO (22:37)
[2025-05-15 23:05] VITALS: BP 162/68
--- NOTE | 2025-05-15 23:11 | PTCARENOTE ---
Pt arrived to floor via stretcher from the ED. Pt AAOx3, [place]. Pt able to ambulate from stretcher to bed independently. No assistive devices used at baseline. Pt ambulatory to bathroom. Oral hygiene complete. Pt settled in bed per comfort. HR in the
60's 100% Vpaced on the monitor. POX 89% on RA post ambulation, 2 LO2 applied, pox 95%. Lungs clear. Hypo bowel, tender abd. Denies nausea or need for pain medication at this time. Reports just minor discomfort. Palpable peripheral pulses present.
Right AC int infusing LR @60ml/hr as ordered. Pt informed as of now scheduled TAVR for 05/16 is canceled. Pt reports understanding. Call sharp in reach. Will continue to monitor.
[2025-05-16] MEDS: ZOFRAN 4 MG IV (00:34)
[2025-05-16] MEDS: ADVAIR HFA 115/21 MCG INHALER INH (02:08)
[2025-05-16 03:24] VITALS: BP 157/75
[2025-05-16 03:44] VITALS: BMI 19.7
[2025-05-16] MEDS: PROTONIX IV 40 MG IV (03:46)
[2025-05-16] MEDS: NSS (PRESERVATIVE FREE) 10 ML IV (03:47)
--- NOTE | 2025-05-16 03:50 | PTCARENOTE ---
Pt woke up complaining of burping and sour feeling in back of throat. Denies abd pain, only discomfort. House [employer] notified. Orders obtained. See MAR. Pt ambulatory to bathroom, voiding without issues. Vital signs stable. AM lab work obtained. IVF
infusing as ordered. Call sharp in reach. Will continue to monitor.
[2025-05-16 04:05] LABS: Hematocrit 45.3 % (37.0-47.0); Hemoglobin 15.5 g/dL (12.0-16.0); Mean Corp Hgb Conc. 34.2 g/dL (33.0-37.0); Mean Corpuscular Volume 85.3 fL (81.0-99.0); Nucleated Red Blood Cells % 0 %; Platelet Count 220 10^3/uL (130-400); Red Cell Dist. Width 13.0 % (11.5-14.5)
[2025-05-16 04:23] LABS: Blood Urea Nitrogen 16 mg/dl (7-17); Calcium 10.0 mg/dl (8.4-10.2); Carbon Dioxide 28 mmol/L (22-30); Chloride 101 mmol/L (98-107); Estimated Creatinine Clearance 46 ml/min; Glucose 101 mg/dl (70-99); Magnesium 1.9 mg/dl (1.6-2.3); Potassium 4.4 mmol/L (3.5-5.1); Sodium 133 mmol/L (135-145); eGFR > 60.00
[2025-05-16] MEDS: ADVAIR HFA 115/21 MCG INHALER 2 PUFF INH ×2 (07:38→20:48)
[2025-05-16 07:58] VITALS: BP 141/59
--- NOTE | 2025-05-16 09:47 | CON.GS ---
Addendum entered and electronically signed by Mic Benitez MD 05/16/25 10:44:
I was physically present and personally performed the allen portions of the surgical evaluation and/or procedure with the resident. I discussed the findings, reviewed the resident�s note, and confirmed the medical decision-making. I provided direct
supervision as required and agree with the assessment and plan as documented with the following additions/corrections:
85F with acute onset abd pain for 3 days, denies n/v, passing some flatus, last BM Wednesday. She eats tanisha slaw regularly and does not chew well. She reports at least one prior similar episode though has a poor memory of it, she does remember having
an NGT at that time. On exam she is mildly distended and focally tender at the suprapubic area without guarding. This corresponds to suspected location of transition point of high grade pSBO at the anterior abdominal wall in the same region. CT also
shows dilated proximal sb and decompressed distal sb with some air and stool in the colon and rectum. Plan for trial of non-op mgmt with NPO/IVF/NGT. Will follow.
Original Note:
Consultation
-
Date/Time Consultation Requested: 05/15/2025 21:51
Date/Time Consultation Performed: 05/16/2025 9:00
Requesting Provider: Gladis Garvin MD
Performing Provider: Mic Benitez MD, MD
Reason for Consultation: Small Bowel Obstruction
Medical History
-
Chief Complaint: Lower Abdominal Pain
History of Present Illness:
85-year-old woman with a history of severe aortic stenosis (scheduled for TAVR 05/16/2025) s/p right and left heart catheterization on aspirin, complete heart block s/p pacemaker placement, COPD, hypertension, GERD, and osteoporosis, with past
surgical history of oophorectomy, hysterectomy, cholecystectomy, and appendectomy, presents to the ED with abdominal pain that began on Wednesday. The pain is noted mostly in the lower abdomen, but also reported in epigastrium, described as constant
and moderate in intensity with a sore quality, associated with abdominal distension. She reports passing gas and burping yesterday. Last bowel movement was on Wednesday, described as formed and non-bloody. She denies nausea, vomiting, diarrhea,
constipation, or fever but notes unintentional weight loss of approximately 20 lbs over the past two years.�She has been regularly eating coleslaw and recalls eating some with shredded carrots and not chewing well prior to episode.
To note she had a small bowel obstruction managed with NG tube decompression during an admission in 05/16/2021.
CT shows: Dilated fluid and air-filled loops of small bowel are present in the proximal to mid small bowel, with collapsed caliber distal small bowel loops. No evidence for free intraperitoneal air. No significant free pelvic fluid or mesenteric
fluid is identified.
Status post cholecystectomy. Stable appearance with no significant dilation of the common bile duct.
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
Past Medical History
Past Medical History: Arrhythmias (Complete Heart Block s/p pacemaker placement), COPD, GERD, HTN, Valvular Disease (Severe Aortic Stenosis s/p right and left heart catheterization (04/19/2025)) and Other (osteoporosis)
Past Surgical History: Appendectomy, Cholecystectomy and Gynecological (Open BLADE, oophorectomy)
Social History
Tobacco: Former Smoker
Alcohol: None
Drug: None
Personal: Single
Living: Alone
Employment: Retired
Family History
Family History: Reviewed & Not Pertinent
Allergies / Home Medications
Allergy/AdvReac Type Severity Reaction Status Date / Time
No Known Allergies Allergy Verified 05/15/25 15:25
�Medication �Instructions �Recorded �Confirmed �Type
ascorbic acid (vitamin C) 500 mg 500 mg PO DAILY Supplement 06/29/17 05/14/25 History
tablet (Vitamin C)
denosumab 60 mg/mL subcutaneous 60 mg SC [id number] bone density 05/16/21 05/14/25 History
syringe (Prolia)
calcium citrate 600 mg PO DAILY Supplement ##0 10/19/23 05/14/25 History
cholecalciferol (vitamin D3) 25 25 mcg PO BID Supplement 10/19/23 05/14/25 History
mcg (1,000 unit) tablet
fluticasone 250 mcg-salmeterol 50 1 inh inhalation R BID 10/19/23 05/14/25 History
mcg/dose blistr powdr for Lung/Breathing Issues
inhalation
fluticasone propionate 50 1 spray intranasal DAILY Allergies 10/19/23 05/14/25 History
mcg/actuation nasal
spray,suspension
ipratropium bromide 42 mcg (0.06 1 spray intranasal BIDPRN PRN 10/19/23 05/14/25 History
%) nasal spray rhinitis
omega 8-qev-ulq-fish oil 1,000 mg 1 cap PO DAILY Supplement 10/19/23 05/14/25 History
(120 mg-180 mg) capsule (Fish Oil)
ropinirole 0.25 mg tablet 0.25 mg PO BID Neurological 10/19/23 05/14/25 History
Condition
thiamine HCl (vitamin B1) 100 mg 100 mg PO DAILY Supplement 10/19/23 05/14/25 History
tablet (Vitamin B-1)
umeclidinium 62.5 mcg/actuation 1 inh inhalation R DAILY 10/19/23 05/14/25 History
blister powder for inhalation Lung/Breathing Issues
(Incruse Ellipta)
atorvastatin 40 mg tablet (Lipitor) 40 mg PO QPM 12/08/24 05/14/25 History
aspirin 81 mg chewable tablet 81 mg PO DAILY #1 tab 04/19/25 05/14/25 Rx
acetaminophen 325 mg tablet 325 mg PO ONCE PRN pain 05/14/25 05/14/25 History
(Tylenol)
lisinopril 20 mg tablet 40 mg PO DAILY 05/14/25 05/14/25 History
polyethylene glycol 3350 17 4 g PO DAILY 05/14/25 05/14/25 History
gram/dose oral powder (Purelax)
Review of Systems
-
History Source: Patient
A 10 point review of systems was completed, and was negative except as per HPI.
Physical Exam
Vital Signs
Temp Pulse Resp BP Pulse Ox
97.6 F 78 18 141/59 90
05/16/25 08:00 05/16/25 09:15 05/16/25 08:00 05/16/25 07:58 05/16/25 08:00
05/15/25 05/16/25 05/17/25
06:59 06:59 06:59
Actual Weight 44.3 kg
Body Mass Index (BMI) 19.7
Lab Results
05/16/25 03:41
05/16/25 03:41
WBC 9.6 10^3/uL (4.8-10.8) 05/16/25 03:41
Hgb 15.5 g/dL (12.0-16.0) 05/16/25 03:41
Hct 45.3 % (37.0-47.0) 05/16/25 03:41
Plt Count 220 10^3/uL (130-400) 05/16/25 03:41
Abs Immat Gran (auto) 0.0 10^3/uL (0-0.05) 05/16/25 03:41
Neutrophils % 75.1 % (42.2-75.2) 05/16/25 03:41
Physical Exam
General: No Apparent Distress; Negative Fever
Respiratory: Clear
Cardiac: S1/S2 and Regular Rhythm
GI: Soft, Tender (hypogastric region with guarding, moderate tenderness in epigastric area), Distended and Other ((+) horizontal incision scar from open BLADE, Hypoactive bowel sounds, tympanitic throughout)
Musculoskeletal: No Edema
Skin: Warm
Neuro: AO x 3
Psych: Calm
Data Reviewed
-
CT Scan: Image Personally Visualized and interpreted (by attending surgeon), Report Reviewed by me (and by attending surgeon) and Discussed with Patient (by attending surgeon)
Assessment / Plan
-
85-year-old woman with a history of severe aortic stenosis (scheduled for TAVR 05/16/2025) s/p right and left heart catheterization on aspirin, with multiple abdominal surgery (oophorectomy, hysterectomy, cholecystectomy, and appendectomy) and prior
episode of SBO presents with lower abdominal and epigastric pain.
(-) N/V, (-) fever, (-) Diarrhea/Constipation, (+) passing gas and stool
CT shows: Dilated fluid and air-filled loops of small bowel are present in the proximal to mid small bowel, with collapsed caliber distal small bowel loops. No evidence for free intraperitoneal air. No significant free pelvic fluid or mesenteric
fluid is identified. Changing caliber from a dilated loop of bowel in the central anterior abdomen 2 flat caliber loop of bowel more inferiorly. Slight swirling of the mesentery in this region on the coronal images. Cystic mass within the uncinate
process of the pancreas, stable, and likely benign.
No white count 9.3-->9.6
Hyponatremia 133
Gen: NAD
Abd: (+) horizontal incision scar from open BLADE, HBS, soft, distended, tender (mostly in hypogastric region with guarding, moderately tender in epigastrium), tympanitic all throughout
#Small Bowel Obstruction
-NGT decompression
-NPO and bowel rest
-on IV fluids
-Pain Management, Antiemetics
-DVT prophylaxis
-Medical management per primary team
[2025-05-16] MEDS: ZESTRIL 20 MG PO (09:57)
[2025-05-16] MEDS: REQUIP PO (09:57)
[2025-05-16] MEDS: LOW STRENGTH ASPIRIN 81 MG PO (09:57)
--- NOTE | 2025-05-16 10:07 | PTCARENOTE ---
Patient sitting oob this morning in the chair, IV infusing at 60ml/hr. Remains NPO, she is aware of plan for NGT insertion which she has had previously. Abdomen softly distended with hypoactive bowel sounds. Call sharp in reach, aware to request help
when ambulating with IV pole.
--- NOTE | 2025-05-16 10:33 | CM ---
Chart reviewed. Patient is independent of ADLS, lives alone in a [facility] apartment, [address], 0 DME but wears O2 2l at bedtime with [employer]. Plan is for the patient to return home. CM to follow
[2025-05-16 11:40] VITALS: BP 165/81
--- NOTE | 2025-05-16 12:34 | PTCARENOTE ---
NGT inserted L nare as ordered, unable to successfully insert in her right nare when initially attempted. NGT to low intermittent wall suction, only clear drainage obtained from the water she ingested while placing the tube, placement confirmed.
Resting in bed, call sharp in reach.
[2025-05-16] MEDS: TORADOL 10 MG IV ×2 (13:10→20:33)
[2025-05-16] MEDS: LR 1000 IV (13:17)
[2025-05-16 15:16] VITALS: BP 149/61
[2025-05-16] MEDS: ANESTHETIC LOZENGE 1 LOZENGE PO (16:00)
--- NOTE | 2025-05-16 16:52 | W.PN.HOSP.TC ---
Today's Communication/Plan
-
Assessment / Plan
Assessment / Plan
General: No Apparent Distress, Comfortable and Conversant
HEENT: NormoCephalic, Moist mucous membranes, Atraumatic
Respiratory: Clear and Non Labored Respirations
Cardiac: S1/S2 and Regular Rhythm; No Rub or Gallop
GI: Distended, decreased bowel sounds, mild TTP suprapubic region
Musculoskeletal: No Edema, no deformity
Skin: Warm and dry
: NO [place]
Neuro: Awake, Alert, Nonfocal/grossly intact
Psych: Calm and cooperative
Ms. Alcantara is a 85-year-old female with a medical history of severe aortic stenosis (initially scheduled for TAVR today 05/16), COPD, complete heart block (PPM), and hypertension who presented with abdominal pain and bloating. She was found to have
a high-grade SBO with transition point in the anterior abdomen. She has been admitted for further evaluation and management.
SBO:
- Imaging shows high-grade SBO with transition point in the anterior abdomen
- NG tube for decompression
- N.p.o.
- Continue IV fluids
- Supportive care with pain control and antiemetics as needed
Hyponatremia:
- Mild with a serum sodium of 133
- Continue IV fluids, monitor
COPD:
- Currently not bronchospastic
- Continue scheduled inhalers
Hypertension:
- Patient uses lisinopril 40 mg daily at home, currently on hold while she is n.p.o.
- Will use IV enalaprilat as needed for SBP greater than 160 while NPO, restart oral antihypertensive regimen when able
DVT prophylaxis: Lovenox
CODE STATUS: Full code
Anticipated Discharge: > 48 hours
Subjective/Interval History
-
Date of Service: May 16, 2025
Patient was seen and examined at bedside this morning. Is feeling uncomfortable with a distended abdomen and belching. No flatus.
Objective Data
-
Vital Signs:
Vital Signs
Temp Pulse Resp BP Pulse Ox
97.8 F 81 20 149/61 92
05/16/25 15:19 05/16/25 15:45 05/16/25 15:19 05/16/25 15:16 05/16/25 15:19
I&O
05/15/25 05/16/25 05/17/25
06:59 06:59 06:59
Intake Total 480 / 480 460 / 460
Balance 480 / 480 460 / 460
Review of Systems
-
History Source: Patient
All other systems: Reviewed and negative
Abdomen/GI: Reports Abdominal Pain and Bloated
Physical Exam
-
General: No Apparent Distress
[2025-05-16] MEDS: LOVENOX 40 MG SC (18:04)
[2025-05-16 18:54] VITALS: BP 150/72
[2025-05-16 22:31] VITALS: BP 126/64
[2025-05-17] VITALS (9 sets, daily range): BP systolic 143–174; BP diastolic 65–76
[2025-05-17 05:24] LABS: Hematocrit 41.0 % (37.0-47.0); Hemoglobin 13.9 g/dL (12.0-16.0); Mean Corp Hgb Conc. 33.9 g/dL (33.0-37.0); Mean Corpuscular Volume 85.1 fL (81.0-99.0); Nucleated Red Blood Cells % 0 %; Platelet Count 198 10^3/uL (130-400); Red Cell Dist. Width 13.0 % (11.5-14.5)
[2025-05-17] MEDS: LR 1000 IV (05:29)
[2025-05-17 05:46] LABS: Blood Urea Nitrogen 14 mg/dl (7-17); Calcium 9.0 mg/dl (8.4-10.2); Carbon Dioxide 24 mmol/L (22-30); Chloride 104 mmol/L (98-107); Estimated Creatinine Clearance 46 ml/min; Glucose 70 mg/dl (70-99); Magnesium 1.9 mg/dl (1.6-2.3); Potassium 4.1 mmol/L (3.5-5.1); Sodium 135 mmol/L (135-145); eGFR > 60.00
--- NOTE | 2025-05-17 05:56 | PTCARENOTE ---
Pt.'s NGT drained 150 ml brown fluid overnight - no complaints of abd. pain or nausea. Bowel sounds are present and patient is passing flatus frequently.
[2025-05-17] MEDS: ADVAIR HFA 115/21 MCG INHALER 2 PUFF INH ×2 (07:39→21:09)
--- NOTE | 2025-05-17 11:02 | CM ---
Chart reviewed. Patient still has NGT to wall suction. Patient is independent of ADLS, lives alone in a 1st floor apartment, [address], 0 DME, wears Home O2 at bedtime with [employer]. Plan is for the pateint to return home. CM to follow
--- NOTE | 2025-05-17 11:20 | PTCARENOTE ---
Patient concerned that she is not getting her other inhaler, getting advair as ordered. Checked patient's med list, apparently she takes elipta and albuterol. TT to hospitalist if he could order inhalers.
[2025-05-17] MEDS: ANESTHETIC LOZENGE 1 LOZENGE PO (11:47)
[2025-05-17] MEDS: SPIRIVA RESPIMAT 2.5 MCG 2 PUFF INH (11:56)
--- NOTE | 2025-05-17 11:58 | W.PN.GS2 ---
Addendum entered and electronically signed by Jasper Hassan MD 05/17/25 16:07:
please see my independent progress note
pt see independently of resident but reviewed treatment plan
Original Note:
Today's Communication / Plan
-
-
Assessment / Plan
-
85-year-old woman with a history of severe aortic stenosis (scheduled for TAVR 05/16/2025) s/p right and left heart catheterization on aspirin, with multiple abdominal surgery (oophorectomy, hysterectomy, cholecystectomy, and appendectomy) and prior
episode of SBO presents with lower abdominal and epigastric pain.
CT shows: Dilated fluid and air-filled loops of small bowel are present in the proximal to mid small bowel, with collapsed caliber distal small bowel loops. No evidence for free intraperitoneal air. No significant free pelvic fluid or mesenteric
fluid is identified. Changing caliber from a dilated loop of bowel in the central anterior abdomen 2 flat caliber loop of bowel more inferiorly. Slight swirling of the mesentery in this region on the coronal images. Cystic mass within the uncinate
process of the pancreas, stable, and likely benign.
No white count 9.3-->9.6-->7.3
Hyponatremia resolved
Abdominal pain improved. Uncomfortable with NGT. (-) N/V, (-) fever, (-) Diarrhea, (+) passing gas, LBM: 4 days ago
AFVSS, O2 Sat low 90's, but noted even prior to NG placement
Gen: NAD
Abd: (+) horizontal incision scar from open BLADE, HBS, soft, distended, tender (mostly in periumbilical area), tympanitic all throughout
#Small Bowel Obstruction
-NGT decompression-- placement check?
-NPO and bowel rest
-on IV fluids
-Pain Management, Antiemetics
-DVT prophylaxis
-Medical management per primary team
Subjective Data
-
Date of Service: May 17, 2025
The patient denies abdominal pain, nausea, vomiting. Reports feeling uncomfortable with NG tube, and having dry throat and runny nose. Last bowel movement on wednesday; continues to pass gas.
Objective Data
-
Intake and Output
05/16/25 05/17/25 05/18/25
06:59 06:59 06:59
Intake Total 480 / 480 1570 / 1570
Output Total 250 / 250
Balance 480 / 480 1320 / 1320
Intake:
IV fluids (Total) 480 / 480 1420 / 1420
Lr 1,000 ml @ 60 mls/hr IV . 480 / 480 1420 / 1420
[id number] Rx[id number]
Amount instilled into GI Tube ( 150 / 150
Total)
[place] Sump 150 / 150
Output:
Gastrointestinal tube output ( 250 / 250
Total)
[place] Sump 250 / 250
Other:
Number of approximated MODERATE 1
amounts of urine
Number of approximated LARGE 1
amounts of urine
Vital Signs
Temp Pulse Resp BP Pulse Ox
97.8 F 88 20 146/65 93
05/17/25 11:23 05/17/25 08:13 05/17/25 11:23 05/17/25 08:13 05/17/25 11:23
Lab Results
05/17/25 04:51
05/17/25 04:51
Calcium 9.0 mg/dl (8.4-10.2) 05/17/25 04:51
Phosphorus 3.5 mg/dl (2.5-4.5) 05/17/25 04:51
Magnesium 1.9 mg/dl (1.6-2.3) 05/17/25 04:51
Total Bilirubin 0.9 mg/dl (0.2-1.3) 05/15/25 20:30
Direct Bilirubin 0.2 mg/dl (0.0-0.4) 05/15/25 20:30
AST 32 U/L (14-36) 05/15/25 20:30
ALT 25 U/L (0-35) 05/15/25 20:30
Alkaline Phosphatase 42 U/L (38-126) 05/15/25 20:30
Total Protein 5.9 g/dl (6.3-8.2) L 05/15/25 20:
Albumin 3.7 g/dl (3.5-5.0) 05/15/25 20:30
Physical Exam
-
Gen: NAD, AOx3 attached to NG tube, bilious fluid
Cardio: regular, (+) murmur
Lungs: non-labored breathing
Abdominal: soft, distended, tender in periumbilical area, tympanitic throughout
Patient has a bettencourt catheter: No
Patient has a central line: No
--- NOTE | 2025-05-17 13:18 | W.PN.GS2 ---
Today's Communication / Plan
-
`
Assessment / Plan
-
Assessment: 85-year-old woman with probable adhesive pSBO
NGT outputs still modest but passing flatus
difficult to clinically determine degree of partial obstruction that may be present or resolving
Plan: CT a/p with oral contrast to better assess for pSBO
okay to clam NGT for study
advise patient and nursing to have patient drink degree of contrast she is able to for CT study but not to the point of it causing sever pain or vomiting.
futher recommendations pending contrast imaging
Subjective Data
-
Date of Service: May 17, 2025
pt seen and examined
improving abdominal pain but still some discomfort
c/o NGT
no BM but passing flatus
Objective Data
-
Intake and Output
05/16/25 05/17/25 05/18/25
06:59 06:59 06:59
Intake Total 480 / 480 1570 / 1570 60 / 60
Output Total 250 / 250
Balance 480 / 480 1320 / 1320 60 / 60
Intake:
IV fluids (Total) 480 / 480 1420 / 1420
Lr 1,000 ml @ 60 mls/hr IV . 480 / 480 1420 / 1420
[id number] Rx#:[id number]
Amount instilled into GI Tube ( 150 / 150 60 / 60
Total)
[place] Sump 150 / 150 60 / 60
Output:
Gastrointestinal tube output ( 250 / 250
Total)
[place] Sump 250 / 250
Other:
Number of approximated MODERATE 1
amounts of urine
Number of approximated LARGE 1
amounts of urine
Vital Signs
Temp Pulse Resp BP Pulse Ox
97.8 F 90 20 146/71 93
05/17/25 11:23 05/17/25 12:00 05/17/25 11:23 05/17/25 11:23 05/17/25 11:23
Lab Results
05/17/25 04:51
05/17/25 04:51
Calcium 9.0 mg/dl (8.4-10.2) 05/17/25 04:51
Phosphorus 3.5 mg/dl (2.5-4.5) 05/17/25 04:51
Magnesium 1.9 mg/dl (1.6-2.3) 05/17/25 04:51
Total Bilirubin 0.9 mg/dl (0.2-1.3) 05/15/25 20:30
Direct Bilirubin 0.2 mg/dl (0.0-0.4) 05/15/25 20:30
AST 32 U/L (14-36) 05/15/25 20:30
ALT 25 U/L (0-35) 05/15/25 20:30
Alkaline Phosphatase 42 U/L (38-126) 05/15/25 20:30
Total Protein 5.9 g/dl (6.3-8.2) L 05/15/25 20:30
Albumin 3.7 g/dl (3.5-5.0) 05/15/25 20:30
Physical Exam
-
NAD AAOx3
ABD: softly protuberant
mild TTP LUQ and R off middline; no R/R/G
NGT in place with gastric contents in canister, no very bilous but modest output
[2025-05-17] MEDS: OMNIPAQUE 50 ML PO (14:07)
--- NOTE | 2025-05-17 14:36 | PTCARENOTE ---
Patient drank her first cup of contrast and tolerated it well, NGT is clamped, waiting for CT of abdomen.
--- NOTE | 2025-05-17 14:58 | W.PN.HOSP.TC ---
Today's Communication/Plan
-
Assessment / Plan
Assessment / Plan
General: No Apparent Distress, Comfortable and Conversant
HEENT: NormoCephalic, Moist mucous membranes, NG tube with brown output
Respiratory: Clear and Non Labored Respirations
Cardiac: S1/S2 and Regular Rhythm; No Rub or Gallop
GI: Distended, decreased bowel sounds, mild TTP suprapubic region
Musculoskeletal: No Edema, no deformity
Skin: Warm and dry
: NO Melton
Neuro: Awake, Alert, Nonfocal/grossly intact
Psych: Calm and cooperative
Ms. Alcantara is a 85-year-old female with a medical history of severe aortic stenosis (initially scheduled for TAVR today 05/16), COPD, complete heart block (PPM), and hypertension who presented with abdominal pain and bloating. She was found to have
a high-grade SBO with transition point in the anterior abdomen. She has been admitted for further evaluation and management.
SBO:
- Imaging shows high-grade SBO with transition point in the anterior abdomen
- NG tube for decompression, to low intermittent wall suction currently with brown output
- Plan for small bowel follow-through today
- Continue IV fluids
- Supportive care with pain control and antiemetics as needed
- Appreciate general surgery guidance
Hyponatremia:
- Mild, resolved
- Continue IV fluids, monitor
COPD:
- Currently not bronchospastic
- Continue scheduled inhalers
- Home inhalers clarified by pharmacy and ordered which is appreciated
Hypertension:
- Patient uses lisinopril 40 mg daily at home, currently on hold while she is n.p.o.
- Will use IV enalaprilat as needed for SBP greater than 160 while NPO, restart oral antihypertensive regimen when able
DVT prophylaxis: Lovenox
CODE STATUS: Full code
Anticipated Discharge: > 48 hours
Subjective/Interval History
-
Date of Service: May 17, 2025
Patient was seen and examined at bedside this morning. Having obvious discomfort from the NG tube but otherwise feeling somewhat better today than yesterday. Abdominal pain and bloating is somewhat better today.
Objective Data
-
Labs:
Laboratory Results
05/17/25
04:51
WBC 7.3
Hgb 13.9
Hct 41.0
Plt Count 198
Sodium 135
Potassium 4.1
Chloride 104
Carbon Dioxide 24
BUN 14
Creatinine 0.6
Glucose 70
Calcium 9.0
Vital Signs:
Vital Signs
Temp Pulse Resp BP Pulse Ox
97.8 F 90 20 146/71 93
05/17/25 11:23 05/17/25 12:00 05/17/25 11:23 05/17/25 11:23 05/17/25 11:23
I&O
05/16/25 05/17/25 05/18/25
06:59 06:59 06:59
Intake Total 480 / 480 1570 / 1570 90 / 90
Output Total 250 / 250 250 / 250
Balance 480 / 480 1320 / 1320 -160 / -160
Review of Systems
-
History Source: Patient
All other systems: Reviewed and negative
Abdomen/GI: Reports Abdominal Pain and Bloated
Physical Exam
-
General: No Apparent Distress
[2025-05-17] MEDS: LOVENOX 40 MG SC (17:55)
[2025-05-17 21:31] LABS: Glucose - Point of Care 117 mg/dl (70-99)
[2025-05-18] VITALS (8 sets, daily range): BP systolic 128–169; BP diastolic 64–77
[2025-05-18] MEDS: LR 1000 IV ×2 (04:30→22:36)
[2025-05-18 04:58] LABS: Hematocrit 40.9 % (37.0-47.0); Hemoglobin 14.2 g/dL (12.0-16.0); Mean Corp Hgb Conc. 34.7 g/dL (33.0-37.0); Mean Corpuscular Volume 83.6 fL (81.0-99.0); Nucleated Red Blood Cells % 0 %; Platelet Count 192 10^3/uL (130-400); Red Cell Dist. Width 12.9 % (11.5-14.5)
[2025-05-18 05:18] LABS: Blood Urea Nitrogen 9 mg/dl (7-17); Calcium 8.7 mg/dl (8.4-10.2); Carbon Dioxide 27 mmol/L (22-30); Chloride 103 mmol/L (98-107); Estimated Creatinine Clearance 46 ml/min; Glucose 96 mg/dl (70-99); Magnesium 1.9 mg/dl (1.6-2.3); Potassium 4.0 mmol/L (3.5-5.1); Sodium 134 mmol/L (135-145); eGFR > 60.00
--- NOTE | 2025-05-18 06:22 | PTCARENOTE ---
Pr NSR on monitor, VSS. NGT to wall suction, output 250ml dark brown thin liquid. Pt denies abdominal pain or nausea. Pt ambulates with x 1 assist to bed side commode. Call sharp within reach.
[2025-05-18] MEDS: SPIRIVA RESPIMAT 2.5 MCG 2 PUFF INH (08:00)
[2025-05-18] MEDS: ADVAIR HFA 115/21 MCG INHALER 2 PUFF INH ×2 (08:00→17:26)
[2025-05-18] MEDS: ANESTHETIC LOZENGE 1 LOZENGE PO (08:34)
--- NOTE | 2025-05-18 09:08 | PTCARENOTE ---
Pt received this am with no c/o of any pain or sob. Room air sat 98%. SR, rate in the 70's. Bilateral groin sites WNL, dressings intact.
[2025-05-18] MEDS: VASOTEC 0.625 MG IV (11:16)
--- NOTE | 2025-05-18 11:29 | CM ---
Chart reviewed. Patient is independent of ADLS, lives alone in a 1st floor apartment, 1 [address], wears Home O2 2L with [employer], 0 DME. Plan is for the patient to return home. CM to follow
[2025-05-18] MEDS: NSS (PRESERVATIVE FREE) 10 ML IV (11:44)
[2025-05-18] MEDS: PROTONIX IV 40 MG IV (11:47)
--- NOTE | 2025-05-18 12:33 | W.PN.GS2 ---
Addendum entered and electronically signed by Steven Bey MD 05/18/25 13:38:
Patient seen and examined.
Reports throat soreness and some thick sputum production. Reports passing flatus and multiple loose, nonbloody bowel movements following that CT scan imaging. No nausea or vomiting.
Gen: NAD
HEENT: darker bilious output
Abd: soft, NT, distended, tympanitic, non-peritoneal
Patient is a 85 yo F with a PMH of severe aortic stenosis (scheduled for TAVR 05/16/2025) p/w SOB likely secondary to adhesions
CT A/P (05/17) with dilated and decompressed SB, contrast passes into colon
AVSS
NGT with 650 cc out
Labs notable for normal WBC, hyponatremia, normal Cr
Clinical and radiographic improvement, however, continues to be distended with some tympany. Given PE findings would recommend a clamp trial throughout the day today with sips of clears as tolerated.
-- Clamp NGT, return to suction if nauseated/pain increasing. Anticipate removal in AM if tolerating clamp trial
-- OK for sips of clears
-- PPI with IV protonix daily for GI ppx
-- Medical management as per primary team
Original Note:
Today's Communication / Plan
-
Clamp NGT
Assessment / Plan
-
85-year-old woman with a history of severe aortic stenosis (scheduled for TAVR 05/16/2025) s/p right and left heart catheterization on aspirin, with multiple abdominal surgery (oophorectomy, hysterectomy, cholecystectomy, and appendectomy) and prior
episode of SBO presents with lower abdominal and epigastric pain.
Initial CT with Dilated fluid and air-filled loops of small bowel are present in the proximal to mid small bowel, with collapsed caliber distal small bowel loops. No evidence for free intraperitoneal air. No significant free pelvic fluid or
mesenteric fluid is identified. Changing caliber from a dilated loop of bowel in the central anterior abdomen 2 flat caliber loop of bowel more inferiorly. Slight swirling of the mesentery in this region on the coronal images. Cystic mass within the
uncinate process of the pancreas, stable, and likely benign.
CT imaging repeated on 05/17 with PO contrast with persistently dilated loops of small bowel; however, contrast does reach the colon suggesting only partial vs resolving obstruction.
AFVSS
Now passing stools/flatus although distention persists
Minimal NGT outputs
Plan:
Clamp NGT, return to suction if nauseated/pain increasing. Anticipate removal in AM if tolerating clamp trial
Ok for sips of clears
PPI with IV protonix daily for GI ppx
Medical management as per primary team
Subjective Data
-
Date of Service: May 18, 2025
Pt seen and examined at bedside with Dr. Bey. Denies n/v. Passing flatus. Has had several stools today after having a large formed stool yesterday. Distention/bloating and abdominal discomfort persist.
Objective Data
-
Intake and Output
05/17/25 05/18/25 05/19/25
06:59 06:59 06:59
Intake Total 1570 / 1570 1730 / 1730
Output Total 250 / 250 1600 / 1600
Balance 1320 / 1320 130 / 130
Intake:
Oral fluids 800 / 800
IV fluids (Total) 1420 / 1420 780 / 780
Lr 1,000 ml @ 60 mls/hr IV . 1420 / 1420 780 / 780
[id number] Rx#:[id number]
Amount instilled into GI Tube ( 150 / 150 150 / 150
Total)
[place] Sump 150 / 150 150 / 150
Output:
Gastrointestinal tube output ( 250 / 250 650 / 650
Total)
[place] Sump 250 / 250 650 / 650
Urine, Voided 950 / 950
Other:
Number of approximated MODERATE 1 1
amounts of urine
Vital Signs
Temp Pulse Resp BP Pulse Ox
97.8 F 86 20 164/71 90
05/18/25 11:06 05/18/25 11:06 05/18/25 11:06 05/18/25 11:06 05/18/25 11:06
Lab Results
05/18/25 04:21
05/18/25 04:21
Calcium 8.7 mg/dl (8.4-10.2) 05/18/25 04:21
Phosphorus 2.6 mg/dl (2.5-4.5) 05/18/25 04:21
Magnesium 1.9 mg/dl (1.6-2.3) 05/18/25 04:21
Total Bilirubin 0.9 mg/dl (0.2-1.3) 05/15/25 20:30
Direct Bilirubin 0.2 mg/dl (0.0-0.4) 05/15/25 20:30
AST 32 U/L (14-36) 05/15/25 20:30
ALT 25 U/L (0-35) 05/15/25 20:30
Alkaline Phosphatase 42 U/L (38-126) 05/15/25 20:30
Total Protein 5.9 g/dl (6.3-8.2) L 05/15/25 20:30
Albumin 3.7 g/dl (3.5-5.0) 05/15/25 20:30
Physical Exam
-
NAD AAOx3
ABD: softly protuberant
mild TTP LUQ and R off midline; no R/R/G
NGT in place with coffee ground contents, modest outputs
[2025-05-18 13:09] LABS: Glucose - Point of Care 92 mg/dl (70-99)
--- NOTE | 2025-05-18 15:57 | W.PN.HOSP.TC ---
Today's Communication/Plan
-
Assessment / Plan
Assessment / Plan
General: No Apparent Distress, Comfortable and Conversant
HEENT: NormoCephalic, Moist mucous membranes, NG tube with brown output
Respiratory: Clear and Non Labored Respirations
Cardiac: S1/S2 and Regular Rhythm; No Rub or Gallop
GI: Distended, decreased bowel sounds, mild TTP suprapubic region
Musculoskeletal: No Edema, no deformity
Skin: Warm and dry
: NO Melton
Neuro: Awake, Alert, Nonfocal/grossly intact
Psych: Calm and cooperative
Ms. Alcantara is a 85-year-old female with a medical history of severe aortic stenosis (initially scheduled for TAVR 05/16), COPD, complete heart block (PPM), and hypertension who presented with abdominal pain and bloating. She was found to have a
high-grade SBO with transition point in the anterior abdomen. She has been admitted for further evaluation and management.
SBO:
- Imaging showed high-grade SBO with transition point in the anterior abdomen
- NG tube for decompression, to low intermittent wall suction currently with brown output
- Clinically improved today, general surgery recommending clamping NGT and placing back to suction if symptomatic, trial with sips of clears, possible removal of NGT tomorrow
- Continue IV fluids and IV PPI personally
- Supportive care with pain control and antiemetics as needed
- Appreciate general surgery guidance
Hyponatremia:
- Mild, stable
- Continue IV fluids, monitor
COPD:
- Currently not bronchospastic
- Continue scheduled inhalers
- Home inhalers clarified by pharmacy and ordered which is appreciated
Hypertension:
- Patient uses lisinopril 40 mg daily at home, currently on hold while she is n.p.o.
- Will use IV enalaprilat as needed for SBP greater than 160 while NPO, restart oral antihypertensive regimen when able
DVT prophylaxis: Lovenox
CODE STATUS: Full code
Anticipated Discharge: 24 - 48 hours
Subjective/Interval History
-
Date of Service: May 18, 2025
Patient was seen and examined at bedside this morning. Still with dark brown output from NG tube to wall suction. Abdominal pain reportedly somewhat better this morning.
Objective Data
-
Labs:
Laboratory Results
05/18/25
04:21
WBC 8.4
Hgb 14.2
Hct 40.9
Plt Count 192
Sodium 134 L
Potassium 4.0
Chloride 103
Carbon Dioxide 27
BUN 9
Creatinine 0.5 L
Glucose 96
Calcium 8.7
Vital Signs:
Vital Signs
Temp Pulse Resp BP Pulse Ox
98.8 F 87 20 157/72 91
05/18/25 15:12 05/18/25 14:00 05/18/25 15:12 05/18/25 11:15 05/18/25 15:12
I&O
05/17/25 05/18/25 05/19/25
06:59 06:59 06:59
Intake Total 1570 / 1570 1730 / 1730
Output Total 250 / 250 1600 / 1600
Balance 1320 / 1320 130 / 130
Review of Systems
-
History Source: Patient
All other systems: Reviewed and negative
Abdomen/GI: Reports Abdominal Pain and Bloated
Physical Exam
-
General: No Apparent Distress
[2025-05-18 16:57] LABS: Glucose - Point of Care 104 mg/dl (70-99)
[2025-05-18] MEDS: TYLENOL 650 MG PO (17:06)
[2025-05-18] MEDS: LOVENOX 40 MG SC (17:06)
--- NOTE | 2025-05-18 18:00 | PTCARENOTE ---
Pt received this am with NG to low intermittent suction. Suction discontinued as ordered at 10am. Pt tolerating ice chips and had 120ml of apple juice today with no pain or nausea. Pt had several episodes of loose brown stools today. OOB to the
chair, gait steady. Denies any sob, room air sat 95%. C/o of throat pain from the NG tube, medicated with cepacol lozengers and tylenol with relief.
[2025-05-18] MEDS: ROBITUSSIN DM 10 ML PO (20:50)
[2025-05-18] MEDS: TORADOL 10 MG IV (22:47)
[2025-05-19] MEDS: ANESTHETIC LOZENGE 1 LOZENGE PO (01:50)
[2025-05-19 03:34] VITALS: BP 156/65
[2025-05-19 03:45] LABS: Glucose - Point of Care 93 mg/dl (70-99)
[2025-05-19 04:41] LABS: Hematocrit 38.2 % (37.0-47.0); Hemoglobin 12.9 g/dL (12.0-16.0); Mean Corp Hgb Conc. 33.8 g/dL (33.0-37.0); Mean Corpuscular Volume 83.6 fL (81.0-99.0); Nucleated Red Blood Cells % 0 %; Platelet Count 174 10^3/uL (130-400); Red Cell Dist. Width 13.2 % (11.5-14.5)
[2025-05-19 05:07] LABS: Blood Urea Nitrogen 10 mg/dl (7-17); Calcium 8.3 mg/dl (8.4-10.2); Carbon Dioxide 27 mmol/L (22-30); Chloride 104 mmol/L (98-107); Estimated Creatinine Clearance 46 ml/min; Glucose 93 mg/dl (70-99); Magnesium 2.0 mg/dl (1.6-2.3); Potassium 3.8 mmol/L (3.5-5.1); Sodium 135 mmol/L (135-145); eGFR > 60.00
[2025-05-19] MEDS: SPIRIVA RESPIMAT 2.5 MCG 2 PUFF INH (07:16)
[2025-05-19] MEDS: ADVAIR HFA 115/21 MCG INHALER 2 PUFF INH ×2 (07:17→17:02)
[2025-05-19 08:24] VITALS: BP 163/79
[2025-05-19] MEDS: NSS (PRESERVATIVE FREE) 10 ML IV (09:10)
[2025-05-19] MEDS: PROTONIX IV 40 MG IV (09:10)
[2025-05-19] MEDS: DUONEB 3 ML INH (10:21)
[2025-05-19] MEDS: TYLENOL 650 MG PO (10:51)
--- NOTE | 2025-05-19 11:50 | W.PN.GS2 ---
Today's Communication / Plan
-
d/c ngt, start clears
Assessment / Plan
-
85-year-old woman with a history of severe aortic stenosis (scheduled for TAVR 05/16/2025) s/p right and left heart catheterization on aspirin, with multiple abdominal surgery (oophorectomy, hysterectomy, cholecystectomy, and appendectomy) and prior
episode of SBO presents with lower abdominal and epigastric pain.
Initial CT with Dilated fluid and air-filled loops of small bowel are present in the proximal to mid small bowel, with collapsed caliber distal small bowel loops. No evidence for free intraperitoneal air. No significant free pelvic fluid or
mesenteric fluid is identified. Changing caliber from a dilated loop of bowel in the central anterior abdomen 2 flat caliber loop of bowel more inferiorly. Slight swirling of the mesentery in this region on the coronal images. Cystic mass within the
uncinate process of the pancreas, stable, and likely benign.
CT A/P (05/17) with dilated and decompressed SB, contrast passes into colon
AFVSS
Now passing stools/flatus, distention and pain improved. Tolerated NGT clamp trial
No leukocytosis
Plan:
D/C NGT
Trial of clears
PPI for GI ppx
Medical management as per primary team
Subjective Data
-
Date of Service: May 19, 2025
Pt seen and examined at bedside with Dr. Hendricks. Denies n/v. OOB to chair. BM's yesterday and passing a good deal more flatus today. Denies pain.
Objective Data
-
Intake and Output
05/18/25 05/19/25 05/20/25
06:59 06:59 06:59
Intake Total 1730 / 1730 920 / 920
Output Total 1600 / 1600
Balance 130 / 130 920 / 920
Intake:
Oral fluids 800 / 800 200 / 200
IV fluids (Total) 780 / 780 720 / 720
Lr 1,000 ml @ 60 mls/hr IV . 780 / 780 720 / 720
[id number] Rx#:[id number]
Amount instilled into GI Tube ( 150 / 150
Total)
[place] Sump 150 / 150
Output:
Gastrointestinal tube output ( 650 / 650
Total)
[place] Sump 650 / 650
Urine, Voided 950 / 950
Other:
Number of approximated MODERATE 1
amounts of urine
Vital Signs
Temp Pulse Resp BP Pulse Ox
98.1 F 100 16 163/79 95
05/19/25 08:25 05/19/25 10:22 05/19/25 10:22 05/19/25 08:24 05/19/25 10:22
Lab Results
05/19/25 03:38
05/19/25 03:38
Calcium 8.3 mg/dl (8.4-10.2) L 05/19/25 03:38
Phosphorus 2.7 mg/dl (2.5-4.5) 05/19/25 03:38
Magnesium 2.0 mg/dl (1.6-2.3) 05/19/25 03:38
Total Bilirubin 0.9 mg/dl (0.2-1.3) 05/15/25 20:30
Direct Bilirubin 0.2 mg/dl (0.0-0.4) 05/15/25 20:30
AST 32 U/L (14-36) 05/15/25 20:30
ALT 25 U/L (0-35) 05/15/25 20:30
Alkaline Phosphatase 42 U/L (38-126) 05/15/25 20:30
Total Protein 5.9 g/dl (6.3-8.2) L 05/15/25 20:30
Albumin 3.7 g/dl (3.5-5.0) 05/15/25 20:30
Physical Exam
-
NAD AAOx3
ABD: softly protuberant, NT; no R/R/G
NGT clamped
[2025-05-19 12:14] VITALS: BP 146/71
--- NOTE | 2025-05-19 12:39 | PTCARENOTE ---
Pt c/o sore throat this morning, she did not want to take Cepacol when offered. She then c/o mid back pain, med with Tylenol 650 mg as ordered with relief noted. NGT removed by surgeon today. She had small amt of bleeding from L nare which has
subsided. Pt has clear liquid diet now, as ordered
--- NOTE | 2025-05-19 14:21 | W.PN.HOSP.TC ---
Today's Communication/Plan
-
Assessment / Plan
Assessment / Plan
General: No Apparent Distress, Comfortable and Conversant
HEENT: NormoCephalic, Moist mucous membranes, NG tube with brown output
Respiratory: Clear and Non Labored Respirations
Cardiac: S1/S2 and Regular Rhythm; No Rub or Gallop
GI: Distended, decreased bowel sounds, mild TTP suprapubic region
Musculoskeletal: No Edema, no deformity
Skin: Warm and dry
: NO Melton
Neuro: Awake, Alert, Nonfocal/grossly intact
Psych: Calm and cooperative
Ms. Alcantara is a 85-year-old female with a medical history of severe aortic stenosis (initially scheduled for TAVR 05/16), COPD, complete heart block (PPM), and hypertension who presented with abdominal pain and bloating. She was found to have a
high-grade SBO with transition point in the anterior abdomen. She has been admitted for further evaluation and management.
SBO:
- Imaging showed high-grade SBO with transition point in the anterior abdomen
- NG tube placed for decompression, now NG tube is been discontinued, passing stool and gas
- Clinically improving, started on clears, will advance as tolerated
- Supportive care with pain control and antiemetics as needed
- Appreciate general surgery guidance
Hyponatremia:
- Mild, stable
- monitor
COPD:
- Currently not bronchospastic
- Continue scheduled inhalers
- Home inhalers clarified by pharmacy and ordered which is appreciated
Hypertension:
- Patient uses lisinopril 40 mg daily at home, had been on hold while n.p.o., now restarted
- Additional IV enalaprilat as needed for SBP greater than 160
DVT prophylaxis: Lovenox
CODE STATUS: Full code
Anticipated Discharge: 24 - 48 hours
Subjective/Interval History
-
Date of Service: May 19, 2025
Patient was seen and examined at bedside this morning. Feeling well and passing gas. NG tube remains clamped.
Objective Data
-
Labs:
Laboratory Results
05/19/25
03:38
WBC 9.6
Hgb 12.9
Hct 38.2
Plt Count 174
Sodium 135
Potassium 3.8
Chloride 104
Carbon Dioxide 27
BUN 10
Creatinine 0.5 L
Glucose 93
Calcium 8.3 L
Vital Signs:
Vital Signs
Temp Pulse Resp BP Pulse Ox
98.1 F 96 16 146/71 91
05/19/25 08:25 05/19/25 12:14 05/19/25 10:22 05/19/25 12:14 05/19/25 12:14
I&O
05/18/25 05/19/25 05/20/25
06:59 06:59 06:59
Intake Total 1730 / 1730 920 / 920
Output Total 1600 / 1600
Balance 130 / 130 920 / 920
Review of Systems
-
History Source: Patient
All other systems: Reviewed and negative
EENT: Reports Sore Throat
Physical Exam
-
General: No Apparent Distress
[2025-05-19] MEDS: LR IV (16:39)
[2025-05-19 16:46] VITALS: BP 140/73
[2025-05-19] MEDS: LOVENOX 40 MG SC (18:09)
[2025-05-19 19:56] VITALS: BP 141/65
[2025-05-19] MEDS: REQUIP 0.25 MG PO (19:57)
[2025-05-19 22:05] VITALS: BP 138/69
--- NOTE | 2025-05-19 22:17 | PTCARENOTE ---
Received patient at change of shift. V paced on the monitor, HR in the 80s. Pt coughing up clear phlegm. No complaints from pt at this time, call sharp within reach.
[2025-05-20 04:53] VITALS: BP 144/68
[2025-05-20 08:01] VITALS: BP 136/71
[2025-05-20] MEDS: ZESTRIL 20 MG PO (08:03)
[2025-05-20] MEDS: REQUIP 0.25 MG PO ×2 (08:03→19:38)
[2025-05-20] MEDS: NSS (PRESERVATIVE FREE) 10 ML IV (08:04)
[2025-05-20] MEDS: PROTONIX IV 40 MG IV (08:04)
[2025-05-20] MEDS: SPIRIVA RESPIMAT 2.5 MCG 2 PUFF INH (08:09)
[2025-05-20] MEDS: ADVAIR HFA 115/21 MCG INHALER 2 PUFF INH ×2 (08:09→18:07)
[2025-05-20] MEDS: TYLENOL 650 MG PO (08:48)
--- NOTE | 2025-05-20 09:31 | W.PN.GS2 ---
Today's Communication / Plan
-
Full liquids
Assessment / Plan
-
85-year-old woman with a history of severe aortic stenosis (scheduled for TAVR 05/16/2025) s/p right and left heart catheterization on aspirin, with multiple abdominal surgery (oophorectomy, hysterectomy, cholecystectomy, and appendectomy) and prior
episode of SBO presents with lower abdominal and epigastric pain.
Initial CT with Dilated fluid and air-filled loops of small bowel are present in the proximal to mid small bowel, with collapsed caliber distal small bowel loops. No evidence for free intraperitoneal air. No significant free pelvic fluid or
mesenteric fluid is identified. Changing caliber from a dilated loop of bowel in the central anterior abdomen 2 flat caliber loop of bowel more inferiorly. Slight swirling of the mesentery in this region on the coronal images. Cystic mass within the
uncinate process of the pancreas, stable, and likely benign.
CT A/P (05/17) with dilated and decompressed SB, contrast passes into colon
AFVSS
Continues to improve, tolerating clears. No appetite as of yet
No leukocytosis
Plan:
Advance to FLD
PPI for GI ppx
Medical management as per primary team
Subjective Data
-
Date of Service: May 20, 2025
Pt seen and examined at bedside with Dr. Hendricks. Denies n/v. Tolerating clears. Bothersome loose cough. Passing a good deal of flatus. No appetite
Objective Data
-
Intake and Output
05/19/25 05/20/25 05/21/25
06:59 06:59 06:59
Intake Total 920 / 920
Balance 920 / 920
Intake:
Oral fluids 200 / 200
IV fluids (Total) 720 / 720
Lr 1,000 ml @ 60 mls/hr IV . 720 / 720
[id number] [facility] Rx#:[id number]
Other:
Number of approximated MODERATE 1
amounts of urine
Vital Signs
Temp Pulse Resp BP Pulse Ox
98.2 F 90 16 144/68 91
05/20/25 08:01 05/20/25 08:14 05/20/25 08:14 05/20/25 04:53 05/20/25 08:14
Lab Results
05/19/25 03:38
05/19/25 03:38
Calcium 8.3 mg/dl (8.4-10.2) L 05/19/25 03:38
Phosphorus 2.7 mg/dl (2.5-4.5) 05/19/25 03:38
Magnesium 2.0 mg/dl (1.6-2.3) 05/19/25 03:38
Total Bilirubin 0.9 mg/dl (0.2-1.3) 05/15/25 20:30
Direct Bilirubin 0.2 mg/dl (0.0-0.4) 05/15/25 20:30
AST 32 U/L (14-36) 05/15/25 20:30
ALT 25 U/L (0-35) 05/15/25 20:30
Alkaline Phosphatase 42 U/L (38-126) 05/15/25 20:30
Total Protein 5.9 g/dl (6.3-8.2) L 05/15/25 20:30
Albumin 3.7 g/dl (3.5-5.0) 05/15/25 20:30
[2025-05-20 11:39] VITALS: BP 113/53
[2025-05-20] MEDS: ANESTHETIC LOZENGE 1 LOZENGE PO ×2 (12:24→15:59)
[2025-05-20 12:57] VITALS: BMI 20.1
--- NOTE | 2025-05-20 14:45 | PTCARENOTE ---
Pt tolerated full liquid lunch, ambulating in room and halls, srikanth well. She c/o R throat pain earlier,med with Tylenol 650 mg po with relief noted. Pt then c/o sore throat, med with cepacol lozenge, as ordered.
--- NOTE | 2025-05-20 14:48 | W.PN.HOSP.TC ---
Today's Communication/Plan
-
Assessment / Plan
Assessment / Plan
General: No Apparent Distress, Comfortable and Conversant
HEENT: NormoCephalic, Moist mucous membranes, NG tube removed
Respiratory: Clear and Non Labored Respirations
Cardiac: S1/S2 and Regular Rhythm; No Rub or Gallop
GI: Soft, nontender
Musculoskeletal: No Edema, no deformity
Skin: Warm and dry
: NO Melton
Neuro: Awake, Alert, Nonfocal/grossly intact
Psych: Calm and cooperative
Ms. Alcantara is a 85-year-old female with a medical history of severe aortic stenosis (initially scheduled for TAVR 05/16), COPD, complete heart block (PPM), and hypertension who presented with abdominal pain and bloating. She was found to have a
high-grade SBO with transition point in the anterior abdomen. She has been admitted for further evaluation and management.
SBO:
- Imaging showed high-grade SBO with transition point in the anterior abdomen
- NG tube placed for decompression, now NG tube is been discontinued, passing gas
- Clinically improving, started on clears, diet being advanced to full liquids today
- Supportive care with pain control and antiemetics as needed, PPI
- Appreciate general surgery guidance
Hyponatremia:
- Mild, stable
- monitor
COPD:
- Currently not bronchospastic
- Continue scheduled inhalers
- Home inhalers clarified by pharmacy and ordered which is appreciated
Hypertension:
- Patient uses lisinopril 40 mg daily at home, had been on hold while n.p.o., now restarted at 20 mg and BP is well-controlled
- Additional IV enalaprilat as needed for SBP greater than 160
DVT prophylaxis: Lovenox
CODE STATUS: Full code
Anticipated Discharge: 24 - 48 hours
Subjective/Interval History
-
Date of Service: May 20, 2025
Patient was seen and examined at bedside this morning. Much more comfortable now with NG tube removed. Still having sore throat. Passing gas.
Objective Data
-
Vital Signs:
Vital Signs
Temp Pulse Resp BP Pulse Ox
97.6 F 90 20 144/68 91
05/20/25 11:39 05/20/25 08:14 05/20/25 11:39 05/20/25 04:53 05/20/25 11:39
I&O
05/19/25 05/20/25 05/21/25
06:59 06:59 06:59
Intake Total 920 / 920
Balance 920 / 920
Review of Systems
-
History Source: Patient
All other systems: Reviewed and negative
EENT: Reports Sore Throat
Physical Exam
-
General: No Apparent Distress
[2025-05-20 15:44] VITALS: BP 135/62
[2025-05-20] MEDS: ROBITUSSIN DM 10 ML PO (15:58)
[2025-05-20] MEDS: LOVENOX 40 MG SC (17:23)
[2025-05-20 19:37] VITALS: BP 108/62
[2025-05-20 22:36] VITALS: BP 130/67
--- NOTE | 2025-05-20 22:44 | PTCARENOTE ---
Received patient at change of shift. V paced on the monitor, HR in the 70s. Tolerating liquid diet. No complaints from pt at this time, call sharp within reach.
[2025-05-21] VITALS (7 sets, daily range): BP systolic 102–149; BP diastolic 57–71; BMI 20.1
[2025-05-21] MEDS: ROBITUSSIN DM 10 ML PO ×2 (04:45→18:01)
[2025-05-21] MEDS: TYLENOL 650 MG PO (04:45)
[2025-05-21] MEDS: NSS (PRESERVATIVE FREE) 10 ML IV (08:35)
[2025-05-21] MEDS: REQUIP 0.25 MG PO ×2 (08:35→20:12)
[2025-05-21] MEDS: PROTONIX IV 40 MG IV (08:35)
[2025-05-21] MEDS: ZESTRIL 20 MG PO (08:35)
[2025-05-21] MEDS: LOW STRENGTH ASPIRIN 81 MG PO (08:36)
[2025-05-21] MEDS: SPIRIVA RESPIMAT 2.5 MCG 2 PUFF INH (08:38)
[2025-05-21] MEDS: ADVAIR HFA 115/21 MCG INHALER 2 PUFF INH ×2 (08:38→19:48)
--- NOTE | 2025-05-21 09:13 | PTCARENOTE ---
Received patient this am lying in bed eating full liquid breakfast, which patient is tolerating. patient has been having small BM's formed and liquid. patient ambulates in hallway, [facility]. well. monitor shows Vpaced, VSS.
--- NOTE | 2025-05-21 12:13 | W.PN.GS2 ---
Today's Communication / Plan
-
Advance diet
Assessment / Plan
-
85-year-old woman with a history of severe aortic stenosis (scheduled for TAVR 05/16/2025) s/p right and left heart catheterization on aspirin, with multiple abdominal surgery (oophorectomy, hysterectomy, cholecystectomy, and appendectomy) and prior
episode of SBO presents with lower abdominal and epigastric pain.
Initial CT with Dilated fluid and air-filled loops of small bowel are present in the proximal to mid small bowel, with collapsed caliber distal small bowel loops. No evidence for free intraperitoneal air. No significant free pelvic fluid or
mesenteric fluid is identified. Changing caliber from a dilated loop of bowel in the central anterior abdomen 2 flat caliber loop of bowel more inferiorly. Slight swirling of the mesentery in this region on the coronal images. Cystic mass within the
uncinate process of the pancreas, stable, and likely benign.
CT A/P (05/17) with dilated and decompressed SB, contrast passes into colon
AFVSS
Continues to improve, tolerating fulls.
Plan:
Advance to LRD
PPI for GI ppx
Medical management as per primary team, ok for d/c from GS standpoint once tolerating diet
Subjective Data
-
Date of Service: May 21, 2025
Pt seen and examined at bedside with Dr. Joseph. Denies n/v. Ate her entire tray for breakfast. Passing flatus and some bm's. Denies pain.
Objective Data
-
Intake and Output
05/20/25 05/21/25 05/22/25
06:59 06:59 06:59
Output Total 500 / 500
Balance -500 / -500
Output:
Urine, Voided 500 / 500
Other:
Number of approximated MODERATE 1
amounts of urine
Vital Signs
Temp Pulse Resp BP Pulse Ox
97.6 F 78 18 136/71 93
05/21/25 12:01 05/21/25 12:01 05/21/25 12:01 05/21/25 08:35 05/21/25 12:01
Lab Results
05/19/25 03:38
05/19/25 03:38
Calcium 8.3 mg/dl (8.4-10.2) L 05/19/25 03:38
Phosphorus 2.7 mg/dl (2.5-4.5) 05/19/25 03:38
Magnesium 2.0 mg/dl (1.6-2.3) 05/19/25 03:38
Total Bilirubin 0.9 mg/dl (0.2-1.3) 05/15/25 20:30
Direct Bilirubin 0.2 mg/dl (0.0-0.4) 05/15/25 20:30
AST 32 U/L (14-36) 05/15/25 20:30
ALT 25 U/L (0-35) 05/15/25 20:30
Alkaline Phosphatase 42 U/L (38-126) 05/15/25 20:30
Total Protein 5.9 g/dl (6.3-8.2) L 05/15/25 20:30
Albumin 3.7 g/dl (3.5-5.0) 05/15/25 20:30
Physical Exam
-
NAD AAOx3
ABD: soft, nd, NT; no R/R/G
--- NOTE | 2025-05-21 12:54 | W.PN.HOSP.TC ---
Today's Communication/Plan
-
see plan
Assessment / Plan
Assessment / Plan
85-year-old female with a medical history of severe aortic stenosis (initially scheduled for TAVR 05/16), COPD, complete heart block (PPM), and hypertension who presented with abdominal pain and bloating. She was found to have a high-grade SBO with
transition point in the anterior abdomen.
Gen: NAD, Awake and alert
Eyes: EOMI, PERRLA, no scleral icterus.
Neck: supple.
CV: RRR, +S1/S2, no m/r/g.
Resp: CTAB, no rales, wheezes, or rhonchi.
Abd: +BS, soft, NT, ND
Skin: No rashes.
Neuro: CN 2-12 intact, non-focal.
Psych: Normal mood and affect.
SBO:
- Imaging showed high-grade SBO with transition point in the anterior abdomen
- NG tube placed for decompression, now NG tube is been discontinued, passing gas
- Clinically improving, started on clears, now progressed to low residue diet
- Supportive care with pain control and antiemetics as needed, PPI
- Appreciate general surgery guidance
Other problems:
Hyponatremia, mild, resolved
COPD: Not in acute exac, cont Advair/Spiriva/duonebs
Essential HTN: cont lisinopril
FULL/Lovenox
Anticipated Discharge: Within 24 hours
Subjective/Interval History
-
Date of Service: May 21, 2025
No new complaints.
Objective Data
-
Vital Signs:
Vital Signs
Temp Pulse Resp BP Pulse Ox
97.6 F 78 18 136/71 93
05/21/25 12:01 05/21/25 12:01 05/21/25 12:01 05/21/25 08:35 05/21/25 12:01
I&O
05/20/25 05/21/25 05/22/25
06:59 06:59 06:59
Output Total 500 / 500
Balance -500 / -500
--- NOTE | 2025-05-21 13:03 | CM ---
dc plans remian home when medically stable. pt already has home o2 at 2L with [employer].
[2025-05-21] MEDS: LOVENOX 40 MG SC (17:26)
--- NOTE | 2025-05-21 18:02 | PTCARENOTE ---
patient c/o a cough, Robitussin po given as ordered.
[2025-05-22] MEDS: ROBITUSSIN DM 10 ML PO ×2 (00:30→07:32)
--- NOTE | 2025-05-22 02:18 | PTCARENOTE ---
Pt. has no complaints of abd. discomfort or nausea, VSS, V-paced on the monitor. Hoping for discharge later today. Currently sleeping.
[2025-05-22 04:00] VITALS: BP 134/72
[2025-05-22] MEDS: ADVAIR HFA 115/21 MCG INHALER 2 PUFF INH (07:25)
[2025-05-22] MEDS: SPIRIVA RESPIMAT 2.5 MCG 2 PUFF INH (07:25)
[2025-05-22] MEDS: ZESTRIL 20 MG PO (07:34)
[2025-05-22] MEDS: LOW STRENGTH ASPIRIN 81 MG PO (07:34)
[2025-05-22] MEDS: REQUIP 0.25 MG PO (07:34)
[2025-05-22 07:36] VITALS: BP 152/64
[2025-05-22] MEDS: NSS (PRESERVATIVE FREE) 10 ML IV (07:37)
[2025-05-22] MEDS: PROTONIX IV 40 MG IV (07:38)
[2025-05-22 07:39] VITALS: BMI 20.1
--- NOTE | 2025-05-22 10:04 | W.PN.GS2 ---
Today's Communication / Plan
-
-- No changes from a surgical perspective
Assessment / Plan
-
85-year-old woman with a history of severe aortic stenosis (scheduled for TAVR 05/16/2025) s/p right and left heart catheterization on aspirin, with multiple abdominal surgery (oophorectomy, hysterectomy, cholecystectomy, and appendectomy) and prior
episode of SBO presents with lower abdominal and epigastric pain.
Initial CT with Dilated fluid and air-filled loops of small bowel are present in the proximal to mid small bowel, with collapsed caliber distal small bowel loops. No evidence for free intraperitoneal air. No significant free pelvic fluid or
mesenteric fluid is identified. Changing caliber from a dilated loop of bowel in the central anterior abdomen 2 flat caliber loop of bowel more inferiorly. Slight swirling of the mesentery in this region on the coronal images. Cystic mass within the
uncinate process of the pancreas, stable, and likely benign.
CT A/P (05/17) with dilated and decompressed SB, contrast passes into colon
AFVSS
Clinical and radiographic improvement. Tolerating a low residue diet. Okay for discharge from surgical perspective.
Plan:
-- LRD
-- PPI for GI ppx
-- Medical management as per primary team, ok for d/c from GS standpoint
Subjective Data
-
Date of Service: May 22, 2025
No complaints. Denies abdominal pain. No nausea or vomiting. Reports passing flatus, nursing confirms passing stools over the past 48 hours. Afebrile. Ambulating.
Objective Data
-
Intake and Output
05/21/25 05/22/25 05/23/25
06:59 06:59 06:59
Intake Total 240 / 240
Output Total 500 / 500
Balance -500 / -500 240 / 240
Intake:
Oral fluids 240 / 240
Output:
Urine, Voided 500 / 500
Other:
Number of approximated MODERATE 1 2
amounts of urine
Vital Signs
Temp Pulse Resp BP Pulse Ox
98.0 F 77 16 134/72 91
05/22/25 07:38 05/22/25 07:26 05/22/25 07:38 05/22/25 04:00 05/22/25 04:01
Lab Results
05/19/25 03:38
05/19/25 03:38
Calcium 8.3 mg/dl (8.4-10.2) L 05/19/25 03:38
Phosphorus 2.7 mg/dl (2.5-4.5) 05/19/25 03:38
Magnesium 2.0 mg/dl (1.6-2.3) 05/19/25 03:38
Total Bilirubin 0.9 mg/dl (0.2-1.3) 05/15/25 20:30
Direct Bilirubin 0.2 mg/dl (0.0-0.4) 05/15/25 20:30
AST 32 U/L (14-36) 05/15/25 20:30
ALT 25 U/L (0-35) 05/15/25 20:30
Alkaline Phosphatase 42 U/L (38-126) 05/15/25 20:30
Total Protein 5.9 g/dl (6.3-8.2) L 05/15/25 20:30
Albumin 3.7 g/dl (3.5-5.0) 05/15/25 20:30
Physical Exam
-
Gen: NAD
Abd: soft, NT, obese, stable distension, non-peritoneal, prior incisions well healed
Patient has a bettencourt catheter: No
Patient has a central line: No
--- NOTE | 2025-05-22 10:32 | W.PN.HOSP.TC ---
Addendum entered and electronically signed by Dru Kellogg MD 05/22/25 12:18:
As per RN patient actually has had bowel movements in the last 24 hours. The patient simply forgot. No need for magnesium citrate.
Original Note:
Today's Communication/Plan
-
d/c
Assessment / Plan
Assessment / Plan
85-year-old female with a medical history of severe aortic stenosis (initially scheduled for TAVR 05/16), COPD, complete heart block (PPM), and hypertension who presented with abdominal pain and bloating. She was found to have a high-grade SBO with
transition point in the anterior abdomen.
Gen: NAD, Awake and alert
Eyes: EOMI, PERRLA, no scleral icterus.
Neck: supple.
CV: remains RRR, +S1/S2, no m/r/g.
Resp: remains CTAB, no rales, wheezes, or rhonchi.
Abd: remains +BS, soft, NT, ND
Skin: No rashes.
Neuro: CN 2-12 intact, non-focal.
Psych: Normal mood and affect.
SBO:
- Imaging showed high-grade SBO with transition point in the anterior abdomen
- NG tube placed for decompression, now NG tube is been discontinued, passing gas
- Clinically improving, started on clears, now progressed to low residue diet
- Supportive care with pain control and antiemetics as needed, PPI
- Appreciate general surgery guidance
- mag citrate today
Other problems:
Hyponatremia, mild, resolved
COPD: Not in acute exac, cont Advair/Spiriva/duonebs
Essential HTN: cont lisinopril
FULL/Lovenox
Medically cleared for d/c. Case management aware.
Total time spent on d/c = 31 min. This included today's physical exam, progress note, review of laboratory and diagnostic data, preparation of discharge documents and prescriptions, and discussions about the pt's hospital course and discharge plan
with the patient and other medical editor involved in the patient's care.
Anticipated Discharge: Today
Subjective/Interval History
-
Date of Service: May 22, 2025
Pt states she is tolerating LR diet. Passing gas but no recently BM. No abdominal pain.
Objective Data
-
Vital Signs:
Vital Signs
Temp Pulse Resp BP Pulse Ox
98.0 F 77 16 134/72 91
05/22/25 07:38 05/22/25 07:26 05/22/25 07:38 05/22/25 04:00 05/22/25 04:01
I&O
05/21/25 05/22/25 05/23/25
06:59 06:59 06:59
Intake Total 240 / 240
Output Total 500 / 500
Balance -500 / -500 240 / 240
[2025-05-22 12:10] VITALS: BP 125/69
--- NOTE | 2025-05-22 14:27 | PTCARENOTE ---
Pt received this am oob ad lucy, gait steady. Ambulates in the hallway and to the lounge. Denies any abd pain or nausea. Last BM was yesterday. Pt discharged to home, driving herself. Discharge instructions given and reviewed with good understanding
and all questions answered. Pt taken to her car in the parking lot to ensure that she got to her there safely.
== END 2025-05-22 15:51 | disposition home or self-care (01) | DRG 389 ==
LOC: IVU 20:57
PROVIDERS: Internal Medicine; Physician Assistant; ADMITTING PHYSICIAN Student in an Organized Health Care Education/Training Program; ATTENDING PHYSICIAN Internal Medicine; CONSULT PHYSICIAN Surgery; EMERGENCY PHYSICIAN Emergency Medicine; FAMILY PHYSICIAN Internal Medicine
PROC: 0D9670Z Drainage of Stomach with Drainage Device, Via Natural or Artificial Opening (ICD-10-PCS; 2025-05-16)
DX: K56.600 Partial intestinal obstruction, unspecified as to cause (principal); E87.1 Hypo-osmolality and hyponatremia; I42.8 Other cardiomyopathies; I50.9 Heart failure, unspecified; I11.0 Hypertensive heart disease with heart failure; J44.9 Chronic obstructive pulmonary disease, unspecified; M81.0 Age-related osteoporosis without current pathological fracture; I35.0 Nonrheumatic aortic (valve) stenosis; Z60.2 Problems related to living alone; Z79.82 Long term (current) use of aspirin; Z79.899 Other long term (current) drug therapy; Z87.891 Personal history of nicotine dependence; Z90.710 Acquired absence of both cervix and uterus; Z90.49 Acquired absence of other specified parts of digestive tract; Z95.0 Presence of cardiac pacemaker
CPT/HCPCS: 74177; 80048; 80076; 81003; 81015; 82962; 83735; 84100; 84132; 85025; 87086; 94640; 96361; 96374; 99284; Q9967

== ENCOUNTER 2025-06-06 04:48 | Inpatient (IN) | payer MEDICARE, SELFPAY ==
[2025-06-06] VITALS (24 sets, daily range): BP systolic 72–155; BP diastolic 40–81; BMI 18.5
--- NOTE | 2025-06-06 05:16 | PTCARENOTE ---
Pt arrived on the unit at 0500 for scheduled TAVR, aaox3, [place] [employer], able to ambulate independently with no assistive devices. Admission qyestions, med verification and prep completed. Pt admits taking aspirin this morning as instructed and completed CHG
shower. Vpaced on the monitor. HR in the 80's 's 100% paced. Pox 95% on RA. Lungs clear. Call sharp in reach.
--- NOTE | 2025-06-06 06:27 | W.CVOR.SURPR ---
CVOR Surgeon Immed Pre Op
-
I have examined this patient prior to performance of the scheduled procedure.
The patient's condition is unchanged from the time of the dictated/written History and
Physical and the patient is able to undergo the scheduled procedure.
--- NOTE | 2025-06-06 07:00 | PTCARENOTE ---
Assumed care of pt from prev nsg shift; Saw pt briefly before being transported to lab aide for TAVR procedure. Pt w/no c/o CP or SOB. Plan of care ongoing.
[2025-06-06] MEDS: ANCEF 10 IV (07:19)
--- NOTE | 2025-06-06 08:36 | CM ---
Met with Mrs. Alcantara in [facility]. She states prior to admission she resides alone in a first floor apartment with one step to enter. She states prior to admission she was independent with ambulation and adls. She states she uses home 02 at 2 liters
at night. She thinks [employer] services her home 02. She states she has a [id number] plan and uses [facility]. She states her son maybe able to spent the night with her when she goes home. The discharge plan is to return home with a home
visit by the Transitional Care Nurse when when medically stable.
We reviewed pre-op and post-op routines. We reviewed the shower instructions. She has the soap, written instructions and the TAVR Educational Booklet. We also reviewed restrictions including driving and lifting restrictions. We discussed a home
visit by the Transitional Care Nurse. She is agreeable to a home visit. The pplan is for a TAVR on Friday, June 06, 2025.
--- NOTE | 2025-06-06 08:37 | CM ---
Reviewed chart. Mrs. Alcantara is in the operating room. Prior to admission she resides alone in a first floor apartment with one step to enter. Prior to admission she was independent with ambulation and adls. She states she uses home 02 at 2 liters
at night. She thinks [employer] services her home 02. She has a [id number] plan and uses [facility]. Her son maybe able to spent the night with her when she goes home. The discharge plan is to return home with a home visit by the
Transitional Care Nurse when when medically stable.
[2025-06-06] MEDS: ANCEF IV (09:58)
--- NOTE | 2025-06-06 10:00 | W.PN.CT.SURG ---
CT Surgery Operative Note
-
OPERATIVE REPORT
Preoperative Diagnosis: Severe aortic valve stenosis, symptomatic
Postoperative Diagnosis: Same
Procedure(s) Performed:
1. Pre deployment balloon valvuloplasty
2. Left trans femoral TAVR with a 26 mm Medtronic Evolut FX device
Date of Procedure: 06/06/2025
Comorbidities:
1. Severe symptomatic aortic stenosis
2. Hypertension
3. COPD
4. Dyslipidemia
5. Pulmonary hypertension
Cardiac Surgeon: Karla Gonzales MD, MPH
Seaweed Harvester: Danica Terry MD
Anesthesia: Conscious Sedation, Local
EBL: 150 cc
Products: none
Implant: Medtronic Evolut 26 mm SN: [id number]
Indication(s) for Procedures: 85-year-old female with severe aortic stenosis. Symptomatic. Preoperative echocardiographic assessment revealed a PG/MG of 85.7/50mmHg, SHAILA 0.45 associated with worsening SOB on exertion. CT-TAVR protocol revealed
acceptable anatomy for a self-expanding TAVR valve.
Start time: 0752 hrs
Deployment time: 0853 hrs
End time: 0917 hrs
Radiation Dose (mGy): 240
DAP (cm2.Gy): 24.7
Fluoroscopy time (minutes): 22.6
Contrast volume (ml): 160
TAVR gradient (mmHg): 6 mmHg
Heparin Dose: 6500 units
Protamine Dose: 40 mg
Final Valve Positionin mm
Findings: Preoperative LVEF was 60% and was 60% following TAVR with inotropic support (intermittently requiring low dose Levophed). Function was overall normal without regional wall motion abnormalities or dyskinesia. The aortic valve was well
seated with no appreciable PVL. The patient has a PPM and at baseline was a sensed with v pacing and prolonged AV conduction, at the conclusion of the case she was back at her baseline. There was successful placement of 26 Evolut FX TAVR valve
without acute complications.
Access:
1. Device -L WORKPLACE REHABILITATION OFFICER, perclose x 2
2. Pigtail -R WORKPLACE REHABILITATION OFFICER + 6Fr angioseal
3. Transvenous Pacer -R femoral vein
Description of Procedure: The patient was taken to the recyclable materials sorter. Their identity and procedure to be performed were verified and they were positioned supine on the recyclable materials sorter table. Induction via conscious sedation with local analgesia. The patient was
then prepped and draped from chin to thigh in a sterile fashion. A preoperative time-out was performed with all members of the team present. Using fluoroscopy, bilateral femoral heads and their margins were identified. Arterial and venous access
were done with a micropuncture needle with Seldinger technique. Test pacing revealed capture with excellent threshold. Angiography confirmed proper puncture site and femoral artery integrity. Two Per-Close devices were used on the TAVR side. An AL1
catheter was used to deliver a extrastiff wire and insertion of the working sheath. An AL1 catheter with a straight stiff wire was used to access the LV. An 18 balloon was prepped and delivered across the valve. We performed a pre valve deployment
balloon valvuloplasty under fluoroscopy guidance and rapid pacing without complications. The valve was prepped and mounted on to the device carrier. An ACT of >250 was achieved. We verified x 3 under fluoroscopy that the valve was mounted correctly
with paddles in appropriate position. We than set our parameters to achieve a co-planar view with the pigtail positioned in the NCC. We advanced the device with it's in-line sheath into the descending thoracic aorta and over the arch into the root
and positioned across the aortic valve. Contrast fluoroscopy was used to visualize the prosthesis across the valve. We performed a quick pre-deployment time out. We verified positioning based on the pigtail and gentle contrast puffs. The valve was
slowly deployed to just before annular contact. We paused here and verified positioning in our cusp overlap view. We then rotated URDU and removed any parallax from the valve. Contrast was used to verify the LCC was appropriate in height. We felt the
positioning was too high so we did continue continue deployment and partially recaptured to reposition. We repositioned the valve and again verified our placement in both views to verify that the valve was at the appropriate height. It was and so we
slowly continued to deploy the valve until the crowns and paddles were free from the device. At this point the valve was functioning and pacing was stopped. The valve was too ventricular when we evaluated our position prior to final deployment so we
opted for a full recapture and reposition. We repositioned and deployed again following our same steps and this time we were happy with our positioning on all views. We slowly continued to deploy the valve until the crowns and paddles were free from
the device. The deployment device was withdrawn into the descending thoracic aorta while maintaining wire access across the valve. A transthoracic echocardiogram was performed . The pigtail was re-positioned at the level of the crown of the valve
and angiography revealed excellent placement and seating of the valve at the annulus. The device was removed from the groin as we cinched down the perclose devices while maintaining wire access. There was acceptable hemostasis. The pigtail was
repositioned into the descending/abdominal and runoff aortogram was performed. There was no significant stenosis or dissection of the bilateral iliofemoral systems with excellent runoff to the SFAs. All wires were removed and perclose snugged and
cut. There was acceptable hemostasis of bilateral groins.
All instrument, sponge, and needle counts were confirmed to be correct x 2 at the end of the operation. The patient was transferred to the cardiac intensive care unit in stable condition.
I, Dr. Karla Gonzales, was present, scrubbed for, and performed all critical elements of this procedure.
Karla Gonzales MD, MPH
Cardiothoracic Surgeon
[facility]
This operative dictation was created using the [employer] dictation system. Please excuse any grammatical, typographical, or 'sound alike' errors
[2025-06-06 10:15] LABS: ACT-LR - POC 290 Seconds (116-155)
[2025-06-06 10:15] LABS: ACT-LR - POC 245 Seconds (116-155)
[2025-06-06 10:15] LABS: ACT-LR - POC 321 Seconds (116-155)
--- NOTE | 2025-06-06 10:15 | ITS.CL.TAVR ---
Bookmobile Clerk - TAVR Report
TAVR PRocedure
Procedure Report:
TRANSCATHETER AORTIC VALVE REPLACEMENT
Date of Procedure: June 06, 2025
Referring: Thelma Curtis
Operators: Drs. Danica Terry and Karla Gonzales
PROCEDURE PERFORMED:
1. Successful placement of 26 mm Medtronic Evolut FX+ valve via left femoral artery.
2. Ultrasound-guided access.
3. Bilateral femoral angiography.
ACCESS:
1. Left common femoral artery, 8 [place]i sheath, under ultrasound guidance using a micropuncture kit.
2. Right common femoral vein, 6 [place] sheath, under ultrasound guidance using a micropuncture kit.
3. Right common femoral artery, 6 [place] sheath, under ultrasound guidance using a micropuncture kit.
Ultrasound was utilized for vascular access. The right and left femoral artery and vein were visualized under ultrasound, and the vessels was patent and arteries were pulsatile. An image was stored permanently in the patient's medical record.
Under direct ultrasound guidance, sheaths as noted above were inserted into the right FA and left femoral artery and vein using a micropuncture kit through a modified Seldinger technique.
PREPROCEDURE NYHA CLASS: II
DESCRIPTION OF PROCEDURE: The patient was referred for assessment of severe symptomatic aortic stenosis and following a comprehensive evaluation it was felt that transcatheter aortic valve replacement (TAVR) would be the most appropriate treatment.
Informed consent was obtained prior to the procedure. A 'time-out' was called and the procedural plan was verbally confirmed by anesthesia, surgery, perfusion, and laboratory worker staff.
Arterial and venous access were obtained in the right common femoral artery and vein using a micropuncture technique and 6 Fr. sheaths were inserted. A 5 Fr. transvenous pacing wire was then advanced to the right ventricle where excellent pacing
thresholds were obtained.
A 5 Fr. pigtail catheter was then advanced to the proximal ascending aorta / noncoronary cusp where angiography was performed to define the the cusp overlap view isolating the non-coronary cusp with overlap of the right and left coronary cusps. The
cusp overlap view was VEGAS 21 / CAU 29.
Ultrasound guidance was then used to obtain arterial access in the left common femoral artery and a 8 Fr. sheath was inserted. Angiography was performed and the arteriotomy site appeared appropriate for preclosure with two Perclose devices. An 8
[place] sheath was then inserted back into the common femoral artery over a J-tipped guidewire. An AL1 catheter was then advanced to the proximal descending aorta. A Double-curve Lunderquist 0.035' wire was placed in the proximal descending
thoracic aorta to facilitate delivery of a 14 Fr / 30 cm Cook sheath.
An AL1 catheter was then positioned just above the aortic valve and a 0.035' Straight tip wire probed the aortic valve and crossed the stenotic leaflets. The AL1 was then advanced to the mid left ventricle. A long J-wire was advanced to the left
ventricular apex and was followed to the apex with an angled pig-tail catheter. The Double Curve Lunderquist was then positioned in the left ventricular apex. The Evolut FX+ stent was inspected under fluoroscopy/cine while rotating the stent
delivery system. The stent paddles were within the pocket and no significant crown overlap noted.
Balloon predilation was performed with rapid pacing using a 18 mm balloon. The balloon was removed and the 14 Fr. sheath was exchanged for the Evolut InLine delivery system. The 26 mm Evolut FX+ stent was advanced across the stenotic leaflets.
The Evolut FX+ valve was slowly deployed in the leaflet overlap view until the stent flared achieving contact at 3 below the noncoronary cusp. The stent continued to flared achieving contact with the left coronary cusp. The image intensifier was
rotated to an MARQUISE position to remove parallax from the valve with continued valve deployment with controlled pacing. We transitioned quickly through the rumble strips on the InLine delivery sheath until the marker band was positioned just below the
paddle attachment. Angiography was performed. The valve structure was released from the delivery system when we were happy with the valve position. Post deployment angiography had only mild aortic insufficiency and a mean gradient of 6 mmHg.
The Evolut FX+ delivery system capsule was reunited to the body of the delivery system. The Evolut InLine sheath was removed and the Perclose knots were advanced to the arteriotomy site resulting in excellent hemostasis.
Femoral angiography: Femoral arteriotomy bilaterally is noted to be above the bifurcation and below the inferior epigastric artery. There is minimal luminal irregularities in the visualized external iliac and femoral vessels.
CONCLUSIONS:
1. Severe symptomatic aortic stenosis. Successful deployment of a 26 mm Evolut FX+ valve with minimal aortic insufficiency post procedure
2. Successful arteriotomy closure with 2 Perclose devices.
3. Acute on chronic diastolic heart failure with LVEDP of 13mmHG.
Danica Terry MD, [facility], [facility]
Copy to: Anatoly Giles.
[2025-06-06] MEDS: LEVOPHED 250 IV (10:16)
[2025-06-06] MEDS: ADVAIR HFA 115/21 MCG INHALER INH (10:20)
[2025-06-06] MEDS: SODIUM CHLORIDE 3% FOR INHALATION INH (10:20)
[2025-06-06] MEDS: SPIRIVA RESPIMAT 2.5 MCG INH (10:21)
--- NOTE | 2025-06-06 10:55 | PTCARENOTE ---
Rec'd report from Ledy in the labeling strategist; Rec'd pt back AAOx3 w/no c/o CP or SOB. 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 Pt w/bilat groin sites w/dressings C/D/I w/no signs or symptoms of bleeding or
hematoma. Pt w/VSS w/HR in the 60's & BP stable at 100/65. Pt is VPaced on telemetry monitoring. Pt w/IV Levophed infusing through patent IV line as ordered to maintain MAP of 65. Current MAP is 72. Pt advised of bedrest restrictions until 1330. Pt
verbalized understanding. Pt's son at bedside & pt w/callbell within reach. No addtl needs at this time; plan of care ongoing.
[2025-06-06] MEDS: VITAMIN D3 (cholecalciferol) PO (13:27)
[2025-06-06] MEDS: VITAMIN C PO (13:27)
[2025-06-06] MEDS: VITAMIN B1 PO (13:27)
[2025-06-06] MEDS: OSCAL CAL 500 500 MG PO (15:58)
[2025-06-06] MEDS: ANCEF 5 IV (15:58)
[2025-06-06] MEDS: MAALOX 30 ML PO (17:33)
[2025-06-06] MEDS: LIPITOR 40 MG PO (18:59)
[2025-06-06] MEDS: LOW STRENGTH ASPIRIN PO ×2 (18:59→19:00)
[2025-06-06] MEDS: ADVAIR HFA 115/21 MCG INHALER 2 PUFF INH (19:21)
[2025-06-06] MEDS: VITAMIN D3 (cholecalciferol) 25 MCG PO (19:46)
[2025-06-06] MEDS: TYLENOL 650 MG PO (22:45)
[2025-06-07] VITALS (7 sets, daily range): BP systolic 105–134; BP diastolic 41–61; PULSE 73; O2SAT 94–96; BMI 19.3
--- NOTE | 2025-06-07 00:56 | PTCARENOTE ---
Assumed care of patient at change of shift. Pt AAOx3, particular, and ambulating self in room. Tele remains 100% Vpaced, HR in the 60-80s. Denies any dizziness. Neuro WNL. B/l groin sites C/D/I w/ positive DP pulses. Left groin slightly ecchymotic,
b/l groins soft on palpation. Patient denies any chest discomfort or SOB. Sating 93% RA. Pt reports she wears 2L of O2 at HS, 2L applied and patient sating 95%. Aware of POC, and can make needs known. Call sharp in reach.
--- NOTE | 2025-06-07 02:52 | W.PN.CT ---
Documented by User: Lambert Duenas PA-C 06/07/25 03:45
Today's Communication / Plan
-
-pod #1
-no issues overnight
-groins are stable, soft, no hematoma b/l
-av-paced 60s overnight
-doesn't appear SOB, has crackles at bases, wt is up from 41.5 kg to 43.4 kg
-labs are pending
-Echo today
-wears O2 at home prn and at night
-current meds (ASA, Lipitor, Zestril, Requip, inhalers)
-ambulate
-possible d/c today
Assessment / Plan
-
- Severe symptomatic aortic valve stenosis- s/p Pre deployment balloon valvuloplasty followed by Left trans femoral TAVR with a 26 mm Medtronic Evolut FX device on 06/06/25, pod #1
- Intraop TTE: Preoperative LVEF was 60% and was 60% following TAVR with inotropic support (intermittently requiring low dose Levophed). Function was overall normal without regional wall motion abnormalities or dyskinesia. The aortic valve was well
seated with no appreciable PVL.
- Hypertension
- COPD
- Dyslipidemia
- Pulmonary hypertension
- GERD
- Osteoporosis
- Hx PNA
- Cholecystectomy
- Appendectomy
- Former smoker
Discussed patient care with: Nursing and Care Team
Subjective
-
Date of Service: June 07, 2025
Objective Data
Vital Signs
Vital Signs
Temp Pulse Resp BP Pulse Ox
98.3 F 67 20 114/50 95
06/06/25 22:39 06/07/25 00:00 06/06/25 22:39 06/06/25 22:39 06/06/25 22:56
CT Intake/Output/Weight
06/06/25 06/06/25 06/07/25
06:59 18:59 06:59
Intake Total 1780 / 1780
Output Total 50 / 50
Balance 1730 / 1730
SaO2: 95
Physical Exam
-
General: Awake and AOx3
Cardiovascular: Regular rate & rhythm, No Murmurs and No Rub
Respiratory: Rales (at bases b/l. No wheeze b/l) and Decreased Breath Sounds
Sternum: Stable
Incision: Clean (groins are cdi, soft, no hematoma b/l, mild tenderness b/l with palpation), Dry and Intact
Extremities: No Edema (2+ DPs b/l)
Abdomen: soft, nontender, nondistended, soft, + decreased bowel sounds
Data Reviewed
-
Lab Results: Results Reviewed
Medications: Active Meds Reviewed
Chest X-Ray: Report Reviewed and Image Reviewed
ECG: Report Reviewed and Image Reviewed

Documented by User: Tresa Dias PA-C 06/07/25 11:51
Assessment / Plan
-
- Severe symptomatic aortic valve stenosis- s/p Pre deployment balloon valvuloplasty followed by Left trans femoral TAVR with a 26 mm Medtronic Evolut FX device on 06/06/25, pod #1
- Intraop TTE: Preoperative LVEF was 60% and was 60% following TAVR with inotropic support (intermittently requiring low dose Levophed). Function was overall normal without regional wall motion abnormalities or dyskinesia. The aortic valve was well
seated with no appreciable PVL.
- Hypertension
- COPD
- Dyslipidemia
- Pulmonary hypertension
- GERD
- Osteoporosis
- Hx PNA
- Cholecystectomy
- Appendectomy
- Former smoker
- Hyponatremia
[2025-06-07 03:39] LABS: Hematocrit 34.3 % (37.0-47.0); Hemoglobin 11.5 g/dL (12.0-16.0); Mean Corp Hgb Conc. 33.5 g/dL (33.0-37.0); Mean Corpuscular Volume 87.9 fL (81.0-99.0); Platelet Count 206 10^3/uL (130-400); Red Cell Dist. Width 13.4 % (11.5-14.5)
[2025-06-07 04:06] LABS: Blood Urea Nitrogen 20 mg/dl (7-17); Calcium 9.4 mg/dl (8.4-10.2); Carbon Dioxide 27 mmol/L (22-30); Chloride 101 mmol/L (98-107); Estimated Creatinine Clearance 46 ml/min; Glucose 93 mg/dl (70-99); Potassium 4.4 mmol/L (3.5-5.1); Sodium 132 mmol/L (135-145); eGFR > 60.00
--- NOTE | 2025-06-07 07:59 | W.PN.CARDCBS ---
Addendum entered and electronically signed by Danica Terry MD 06/07/25 22:16:
I saw and examined the patient.
The Anodic Treater's note was reviewed and I agree with the note.
Comment: Doing well this AM. Mild tenderness at bilateral groin sites but no pain with ambulation. No CP or SOB.
VSS. Labs reviewed. On exam, she is OOB in chair, NAD, awake, alert, Oriented x 3, RR, Normal S1 and S2, 2/6 COLIN at RUSB, Minimal JVD, lungs CTAB, bilateral groin sites with dressing in place c/d/i, no hematoma or bruit, warm ext, no significant
edema.
Reccs:
1. s/p 26mm Medtronic EVolut FX+ via RCFA access doing well. Baseline PPM. Echo from today with normal LVEF, stable mean AoV grad at 8mmHG, no effusion.
2. Cont with ASA and home cardiac meds.
3. OOB ambulation
4. Agree with low dose lasix upon discharge and outpt BMP
5. Outpt cardiology follow up and cardiac rehab
Stable for discharge from cardiac standpoint.
Danica Terry MD, [facility], [facility]
Original Note:
Today's Communication / Plan
-
Doing well status post TAVR
For echo this morning
Ambulate
Continue aspirin, lisinopril.
Lasix added this admission. Check BMP in 1 week upon discharge
Outpatient cardiac follow-up arranged
Impression / Plan
-
Primary Timber Killer: Dr. Curtis
Impression
- Severe symptomatic s/p pre deployment balloon valvuloplasty, L TF TAVR 26 mm Medtronic Evolut FX 06/06/25
- Acute on chronic diastolic HF
- Hypertension
- COPD
- Dyslipidemia
- Pulmonary hypertension
- GERD
- Osteoporosis
- Hx PNA
- Cholecystectomy
- Appendectomy
- Former smoker
ECHO 03/14/25: EF 60%, severe with peak/mean gradients 86/50mmHg, SHAILA 0.45cm2, mild TR, PAP 40mmHg
ECHO 06/06/25: EF 55-60%, pacemaker wire in right heart, status post 26 mm Medtronic Evolut TAVR with peak/mean gradients 13/6-20, no AR, no pericardial effusion
Plan:
-s/p pre deployment balloon valvuloplasty, L TF TAVR 26 mm Medtronic Evolut FX 06/06/25
-no issues overnight. states she feels as though her breathing is better
-reports some R groin tenderness overnight but site feels soft. hgb 11.5. continue asa
-Remains in a sensed V paced rhythm on review of telemetry overnight
-Echo pending
-Blood pressure stable. Continue outpatient lisinopril. She has been started on p.o. Lasix 20 mg daily
-check BMP in 1 week
-Ambulate
-Plan for DC to home today
-Outpatient cardiac follow-up arranged
Progress Note - Timber Killer
Subjective
Date of Service: June 07, 2025
Reports she feels as though her breathing is improved. Reports some right groin tenderness with palpation
Objective
Labs:
06/07/25 03:18
06/07/25 03:18
Labs
Hgb 11.5 g/dL (12.0-16.0) L 06/07/25 03:18
Hct 34.3 % (37.0-47.0) L 06/07/25 03:18
Plt Count 206 10^3/uL (130-400) 06/07/25 03:18
Sodium 132 mmol/L (135-145) L 06/07/25 03:18
Potassium 4.4 mmol/L (3.5-5.1) 06/07/25 03:18
BUN 20 mg/dl (7-17) H 06/07/25 03:18
Creatinine 0.6 mg/dL (0.6-1.0) 06/07/25 03:18
Glucose 93 mg/dl (70-99) 06/07/25 03:18
Vital Signs and I&O:
Vital Signs
Temp Pulse Resp BP Pulse Ox
97.1 F 60 20 131/41 93
06/07/25 07:55 06/07/25 05:00 06/07/25 07:55 06/07/25 03:03 06/07/25 07:55
Vital Signs
Temp Pulse Resp BP Pulse Ox
97.1 F 60 20 131/41 93
06/07/25 07:55 06/07/25 05:00 06/07/25 07:55 06/07/25 03:03 06/07/25 07:55
Intake & Output
06/04/25 06/05/25 06/06/25 06/07/25
07:59 07:59 07:59 07:59
Intake Total 2260 / 2260
Output Total 50 / 50
Balance 2210 / 2210
Physical Exam
Physical Exam
GEN: No distress, awake, alert, oriented x3. Sitting in chair
HEENT: supple, anicteric, mmm, EOMI
LUNGS: CTA bilaterally, no wheezes/rales
CV: Reg, S1/S2, 1/6 syst LSB
ABD: soft, BS+, NT/ND
EXT: No cyanosis, clubbing. Trace edema of bilateral lower extremity
NEURO: Gross non-focal
SKIN: Warm, pink, dry. No rash. Bilateral groin sites with dressings clean dry and intact. Right groin site with some mild tenderness to palpation. Left groin site with some oralia-incisional ecchymoses
[2025-06-07] MEDS: VITAMIN C 500 MG PO (08:01)
[2025-06-07] MEDS: VITAMIN B1 100 MG PO (08:01)
[2025-06-07] MEDS: OSCAL CAL 500 500 MG PO (08:01)
[2025-06-07] MEDS: VITAMIN D3 (cholecalciferol) 25 MCG PO (08:01)
[2025-06-07] MEDS: ZESTRIL 20 MG PO (08:01)
[2025-06-07] MEDS: LOW STRENGTH ASPIRIN 81 MG PO (08:08)
[2025-06-07] MEDS: LASIX 20 MG PO (08:13)
[2025-06-07] MEDS: REQUIP 0.25 MG PO (08:13)
--- NOTE | 2025-06-07 08:26 | W.PN.ANS.POP ---
Anesthesia Post Operative
- Anesthesia Post Op Note
Vital Signs Stable-See Nursing Note: Yes
Airway Patent: Yes
Adequate Pain Control: Yes
Change in Mental Status: No
Current Postoperative Nausea & Vomiting: No
Anesthesia Complications: No
General Anesthetic Recall: No
Unplanned Admission: No
Post Op Hydration Adequate: Yes
[2025-06-07] MEDS: ADVAIR HFA 115/21 MCG INHALER 2 PUFF INH (08:32)
[2025-06-07] MEDS: SODIUM CHLORIDE 3% FOR INHALATION 1 VIAL INH (08:32)
[2025-06-07] MEDS: SPIRIVA RESPIMAT 2.5 MCG 2 PUFF INH (08:33)
[2025-06-07] MEDS: VENTOLIN NEBULES 2.5 MG INH (08:34)
--- NOTE | 2025-06-07 10:32 | CM ---
Reviewed chart. Met with Mrs. Alcantara to review discharge plans. She states she is feeling well and maybe able to go home soon. We reviewed a home visit by the Transitional Care Nurse. She is agreeable to a home visit. Prior to admission she
resides alone in a first floor apartment with one step to enter. Prior to admission she was independent with ambulation and adls. She states she uses home 02 at 2 liters at night. She thinks [employer] services her home 02. She has a
[id number] plan and uses [facility]. Her son maybe able to spent the night with her when she goes home. The discharge plan is to return home with a home visit by the Transitional Care Nurse when when medically stable.
--- NOTE | 2025-06-07 11:07 | PN.CDI ---
CDI
- -
CDI:
Physician Documentation Request
Admit Date: 06/06/25 04:48
Dear Doctor/CVPA,
Please review the following and provide your response in the progress notes.
Clinical Indicators:
Pt admitted with Aortic Stenosis for TAVR
Ct cardiac cath /TAVR report,' Acute on chronic diastolic heart failure with LVEDP of 13mmHG. ..'
Cardiology note 06/07, ' She has been started on p.o. Lasix 20 mg daily...'
Sodium level below/ Pt did get IVFs
Laboratory Tests
06/07/25
03:18
Sodium 132 L
Based on the above, could you clarify in the progress notes, the appropriate diagnosis, if significant, that supports the above abnormalities and additional evaluation, monitoring and/or treatment rendered:
Hyponatremia
Abnormal lab value only
Other ( Please specify)
Use of terms such as suspected, likely, concern for, or probable (associated with a specific diagnosis that is being evaluated, monitored, or treated as if it exists) are acceptable and can be coded in the inpatient setting, when documented at the
time of discharge.
Thank you,
Chloe Yang RN
CDI Specialist
[place] [facility]
Please use your independent medical judgment in providing your response.
--- NOTE | 2025-06-07 12:13 | W.DCSUMMARY ---
Discharge Summary
Discharge Data
Date of Admission: 06/06/25
Date of Discharge: 06/07/25
-
Pending Results: No
Hospital Course
Primary care physician: Denilson Bennett
Outpatient food and beverage service manager: Danica Terry
Inpatient consultants: ESTEBAN
Procedures:
1. 06/06/25 left transfemoral TAVR with #26mm Medtronic Evolut FX by Drs. Karla Gonzales & Danica Terry
Primary Diagnosis:
1. severe aortic stenosis
Secondary Diagnoses:
1. Hypertension
2. COPD
3. Dyslipidemia
4. Pulmonary hypertension
5. GERD
6. Osteoporosis
7. Hx PNA
8. hx Cholecystectomy
9. hx Appendectomy
10. Former smoker
11. hx PPM
HPI: Patient is an 85-year-old female with known progressive aortic stenosis, with complaints of somewhat decreasing exercise tolerance. Most recent echo demonstrated critical , with peak and mean gradients of 87/50 mmHg respectively with aortic
valve area of 0.45 cm� with preserved LV function. She was therefore referred for TAVR. After all preop workup was completed she was deemed a suitable candidate to undergo the procedure.
Hospital course: Patient was brought in electively on 06/06/2025 where she underwent an uncomplicated left transfemoral TAVR with a #26 Medtronic valve by Drs. Gonzales and Mara. She was transferred to postop recovery on Levophed at 2, which was
weaned off without incident. Access sites were stable and her twelve-lead EKG demonstrates A sensing and V pacing with her permanent device. Patient remained hemodynamically stable and all her home medications were continued. On postop day 1
chest x-ray without significant abnormality. Follow-up echo demonstrates a well-seated TAVR with trace AI and a mean gradient of 8 mmHg. Patient is discharged to home with close follow-up with the transitional care nurse on [facility].
Home medication changes: None, resume all home meds
Discharge Plan
-
Patient Disposition: Home (Routine Discharge)
Discharge Diagnosis/Procedures: severe s/p TAVR
Condition: Good
Diet: 2 Gram Sodium
Activity: No strenuous activity
Driving Restrictions: No driving for 1 week
Bathing Restrictions: OK to Shower
Others Tests: Repeat TTE on WednesdayJul 03 at 2pm at [facility]
Other Services: Cardiac Rehab
Specialty Instructions: Weigh Daily- Call MD for wt gain/loss 3 lbs overnight/5 lbs in 1 week
Referrals:
CT Transitional Care Nurse [Outside] - in one to two days
Referral Note:
The Cardiothoracic Transitional Care Nurse will call you to set up a visit in 1-2 days.
[facility]. Cardiac Rehab [Outside] - 07/02/25 8:30 am
Referral Note: Cardiac Rehab Orientation appointment is on July 02 at 8:30am.
The Cardiac Rehab gym is located on the first floor of the [facility].
Donald Oreilly MD [Family Provider, Internal Medicine] - in four to six weeks
Referral Note: PLease make an appoinbtment in four to six weeks.
Thelma Curtis DO [Active, Cardiology] - 07/13/25 11:00 am
Prescriptions:
Continued
ascorbic acid (vitamin C) [Vitamin C] 500 MG tablet
500 mg PO DAILY
Prolia 60 MG/ML syringe
60 mg SC [id number]
fluticasone propion-salmeterol 250-50 mcg/dose Blister With Device
1 inh INHALATION R BID
thiamine HCl (vitamin B1) [Vitamin B-1] 100 mg Tablet
100 mg PO DAILY
ropinirole 0.25 mg Tablet
0.25 mg PO BID
ipratropium bromide 42 mcg (0.06 %) [place],Non-Aerosol
1 spray INTRANASAL DAILY
fluticasone propionate 50 mcg/actuation [place],Suspension
1 spray INTRANASAL DAILY
calcium citrate 250 mg calcium Tablet
600 mg PO DAILY Qty: 0
cholecalciferol (vitamin D3) 25 mcg (1,000 unit) Tablet
25 mcg PO BID
omega 5-uzp-lue-fish oil [Fish Oil] 1,000 mg (120 mg-180 mg) Capsule
1 cap PO DAILY
Incruse Ellipta 62.5 mcg/actuation Blister With Device
1 inh INHALATION R DAILY
atorvastatin [Lipitor] 40 mg Tablet
40 mg PO QPM
aspirin 81 mg tablet,chewable
81 mg PO DAILY Qty: 1 0RF
acetaminophen [Tylenol] 325 mg Tablet
325 mg PO Q6HPRN PRN (Reason: mild pain)
polyethylene glycol 3350 [Purelax] 17 gram/dose Powder
17 g PO DAILY
albuterol sulfate 2.5 mg /3 mL (0.083 %) Solution For Nebulization
2.5 mg INHALATION R DAILY
sodium chloride 3 % solution for nebulization
4 ml INHALATION R DAILY
albuterol sulfate 90 mcg/actuation Hfa Aerosol Inhaler
2 puff INHALATION R Q6HPRN PRN (Reason: sob)
lisinopril 20 mg Tablet
20 mg PO DAILY Qty: 30 0RF
Discharge Orders:
Discharge Patient (As Directed); Ordered 06/07/25
Ordered By: Tresa Dias
Care Plan Goals
Care Plan Goals:
Problem: Readiness for enhanced knowledge related to diagnosis and treatment plan
Goal: Understand your diagnosis and treatment plan needs, including medications if applicable.
Instructions: Know your diagnosis, underlying causes and treatment plan options, including medications if applicable. Consult with your health care team to learn about your diagnosis and treatment plan, including medications if applicable.
Discharge Date and Time
Print Language: YORUBA
[2025-06-07] MEDS: TYLENOL 650 MG PO (14:18)
--- NOTE | 2025-06-07 16:10 | PTCARENOTE ---
Pt received this am with no c/o of any chest pain, sob to lightheadedness. Bilateral groin sites WNL. Pt oob ad lucy, ambulating in the hallways, gait steady. V paced on the monitor. Pt discharged to home with her son. Discharge instructions given
and reviewed with pt and her son. Pt verbalized complete understanding and all questions answered.
== END 2025-06-07 16:44 | disposition home or self-care (01) | DRG 266 ==
LOC: IVU 04:48
PROVIDERS: Clinical Nurse Specialist Acute Care; Internal Medicine Interventional Cardiology; ADMITTING PHYSICIAN Student in an Organized Health Care Education/Training Program; FAMILY PHYSICIAN Internal Medicine
PROC: 02RF38Z Replacement of Aortic Valve with Zooplastic Tissue, Percutaneous Approach (ICD-10-PCS; 2025-06-06)
PROC: 027F3ZZ Dilation of Aortic Valve, Percutaneous Approach (ICD-10-PCS; 2025-06-06)
PROC: B41F1ZZ Fluoroscopy of Right Lower Extremity Arteries using Low Osmolar Contrast (ICD-10-PCS; 2025-06-06)
PROC: B41G1ZZ Fluoroscopy of Left Lower Extremity Arteries using Low Osmolar Contrast (ICD-10-PCS; 2025-06-06)
DX: I35.0 Nonrheumatic aortic (valve) stenosis (principal); I50.33 Acute on chronic diastolic (congestive) heart failure; E87.1 Hypo-osmolality and hyponatremia; I11.0 Hypertensive heart disease with heart failure; J44.9 Chronic obstructive pulmonary disease, unspecified; E78.5 Hyperlipidemia, unspecified; I27.20 Pulmonary hypertension, unspecified; Z95.0 Presence of cardiac pacemaker; K21.9 Gastro-esophageal reflux disease without esophagitis; M81.0 Age-related osteoporosis without current pathological fracture; Z60.2 Problems related to living alone; Z87.01 Personal history of pneumonia (recurrent); Z90.49 Acquired absence of other specified parts of digestive tract; Z87.891 Personal history of nicotine dependence
CPT/HCPCS: 33361; 71045; 80048; 85027; 85347; 93005; 93308; 93321; 93325; 94640; C1760; C1769; C1894; Q9967

== ENCOUNTER → 2025-07-03 13:55 | Outpatient (REF) | payer MEDICARE, SELFPAY | LOC: RCS 13:55 | PROVIDERS: ATTENDING PHYSICIAN Internal Medicine Cardiovascular Disease; FAMILY PHYSICIAN Internal Medicine | DX: Z95.2 Presence of prosthetic heart valve (principal) | CPT/HCPCS: 93306 ==

== ENCOUNTER 2025-07-06 11:04 | Outpatient (RCR) | payer MEDICARE, SELFPAY | END 2025-07-06 23:59 | disposition home or self-care (01) | LOC: CRHB 11:04 | PROVIDERS: ATTENDING PHYSICIAN Internal Medicine Cardiovascular Disease | DX: Z95.4 Presence of other heart-valve replacement (principal) | CPT/HCPCS: G0422; G0423 ==

== ENCOUNTER 2025-08-08 11:48 | Outpatient (RCR) | payer MEDICARE, SELFPAY | END 2025-08-08 23:59 | disposition home or self-care (01) | LOC: CRHB 11:48 | PROVIDERS: ATTENDING PHYSICIAN Internal Medicine Cardiovascular Disease; FAMILY PHYSICIAN Internal Medicine | DX: Z95.4 Presence of other heart-valve replacement (principal) | CPT/HCPCS: G0422; G0423 ==